=== PATIENT | male | born 1950 | race African-American/Black ===

== ENCOUNTER 2017-08-06 17:06 | Emergency (ER) | payer MEDICARE, OTHER ==
[~2017-08-06] VITALS: Ht 193 cm; Wt 117.9 kg
[2017-08-06 17:17] VITALS: BP 147/83
[2017-08-06] MEDS ORDERED: Tylenol #3 tab (300mg/30mg) ORAL ONE (17:45)
[2017-08-06] MEDS ORDERED: VITAMIN C500 M1 ORAL (17:57)
[2017-08-06] MEDS ORDERED: SPIRIVA18 MCG INH (17:57)
[2017-08-06] MEDS ORDERED: QUETIAPINE FUMA25 MG ORAL (17:57)
[2017-08-06] MEDS ORDERED: FERROUS SULFAT325 MG ORAL (17:57)
[2017-08-06] MEDS ORDERED: ALBUTEROL2.5 MG/3 M INH (17:57)
[2017-08-06] MEDS ORDERED: TAMSULOSIN HCL0.4 MG ORAL (17:57)
[2017-08-06] MEDS ORDERED: MILK OF MA400 MG/51 ORAL (17:57)
[2017-08-06] MEDS ORDERED: ASPIR 8181 MG ORAL (17:57)
[2017-08-06] MEDS ORDERED: MULTIVITAMINS1 EAC2 ORAL (17:57)
[2017-08-06] MEDS ORDERED: LEXAPRO10 MG ORAL (17:57)
[2017-08-06] MEDS ORDERED: METOPROLOL TART25 MG ORAL (17:57)
[2017-08-06] MEDS ORDERED: TYLENOL EXTRA500 MG ORAL (17:57)
[2017-08-06] MEDS ORDERED: ZINC SULFATE220 M1 ORAL (17:57)
[2017-08-06] MEDS ORDERED: MELATONIN 3 MG1 EAC1 PO (17:57)
--- NOTE | 2017-08-06 18:52 | Emergency Room Report ---
History of Present Illness General Chief Complaint: Pain Source: Patient, Medical Record Present Illness HPI 67-year-old male presents ED for evaluation. Patient is complaining of left wrist pain and swelling. Patient states he fell today at a [facility]. Denies hitting his head or LOC. Pain is throbbing, 8 out of 10, nonradiating. Denies any other injuries. No other aggravating or relieving factors. Denies any other associated symptoms Allergies: Coded Allergies: CHEESE (Verified Allergy, Unknown, 08/06/17) NIFEDIPINE (Verified Allergy, Unknown, 08/06/17) Patient History Past Medical History: DM, HTN, COPD, psych hx, other - BPH Past Surgical History: none Pertinent Family History: none Social History: Denies: smoking, alcohol use, drug use Immunizations: UTD Reviewed Nursing Documentation: PMH: Agreed; PSxH: Agreed Nursing Documentation-PMH Hx Hypertension: Yes Hx COPD: Yes Hx Diabetes: Yes Hx Gastrointestinal Problems: Yes - BPH History Of Psychiatric Problem: Yes - schizophrenia, major depressive disorder Review of Systems All Other Systems: negative except mentioned in HPI Physical Exam Vital Signs Date Time Temp Pulse Resp B/P (MAP) Pulse Ox O2 Delivery O2 Flow Rate FiO2 08/06/17 17:00 98.2 94 20 147/83 95 Room Air 98.2 Sp02 EP Interpretation: reviewed, normal General Appearance: no apparent distress, alert, GCS 15, non-toxic Head: normocephalic Eyes: bilateral eye normal inspection, bilateral eye PERRL ENT: normal ENT inspection Neck: normal inspection Respiratory: normal inspection Cardiovascular #1: normal inspection Gastrointestinal: normal inspection Rectal: deferred Genitourinary: no CVA tenderness Musculoskeletal: swelling - L wrist Neurologic: alert, oriented x3, responsive, motor strength/tone normal, sensory intact, speech normal Psychiatric: normal inspection Skin: normal inspection Lymphatic: normal inspection Procedures Splinting Splinting : Consent: Verbal Pre-Made Type: velcro Splint: wrist Pre-Proc Neuro Vasc Exam: normal Post-Proc Neuro Vasc Exam: normal Patient Tolerated: Well Complications: None Medical Decision Making Diagnostic Impression: Primary Impression: Wrist fracture, left Qualified Codes: S62.102A - Fracture of unspecified carpal bone, left wrist, initial encounter for closed fracture ER Course Hospital Course 67-year-old M presents to ED complaining of LUE pain s/p fall Differential diagnoses include: Fracture, dislocation, sprain, contusion Clinical course Patient placed on stretcher. After initial history and physical, I ordered pain medications and Xrays of L hand, wrist On one view of wrist shows fracture. However patient is refusing additional views. Patient does have psychiatric history. I am unable to coerce patient into receiving additional views. Discussed case with PMD Dr. Araiza. Patient placed in wrist splint. Patient safe for discharge back to [facility] facility Diagnosis - wrist fracture Stable and discharged to home with Rx Tylenol #3. apply ice, keep elevated. Followup with PMD. Return to ED if symptoms recur or worsen Other X-Ray Diagnostic Results Other X-Ray Diagnostic Results : X-Ray ordered: L wrist # of Views/Limited Vs Complete: 1 View Indication: Pain EP Interpretation: Yes Interpretation: no dislocation, other - fx. patient refused additional views Impression: Other - fx Electronically Signed by: Electronically signed by Santiago Pantoja MD Last Vital Signs Date Time Temp Pulse Resp B/P (MAP) Pulse Ox O2 Delivery O2 Flow Rate FiO2 08/06/17 17:51 98.2 08/06/17 17:17 94 20 147/83 95 Room Air Status: improved Disposition: XFER SNF Condition: Stable Referrals: Cher Araiza MD (PCP) SANTIAGO PANTOJA M.D. Aug 06, 2017 18:52
[2017-08-06] MEDS ORDERED: ACETAMINOPHEN-1 EAC1 ORAL (18:53)
[2017-08-06 20:05] VITALS: BP 143/67
[2017-08-06 20:23] VITALS: BP 143/67
--- NOTE | 2017-08-07 10:11 | Diagnostic Imaging Report ---
Indication: Left wrist pain Technique: Lateral left wrist Comparison: None Findings: Examination is limited with only a lateral view but there is an apparent fracture of the distal radius. Soft tissue swelling is noted. There is osteopenia. Impression: Examination limited by only a lateral view. Apparent fracture of the distal radius. Complete repeat examination recommended. Findings discussed with Dr. Ferro.
== END 2017-08-06 20:24 ==
LOC: EDBD 17:06 → EMR 17:41
DX: S62.102A Fracture of unspecified carpal bone, left wrist, initial encounter for closed fracture (principal); W19.XXXA Unspecified fall, initial encounter; Y92.129 Unspecified place in nursing home as the place of occurrence of the external cause; I10 Essential (primary) hypertension; J44.9 Chronic obstructive pulmonary disease, unspecified; E11.9 Type 2 diabetes mellitus without complications; N40.0 Benign prostatic hyperplasia without lower urinary tract symptoms; F20.9 Schizophrenia, unspecified; F32.9 Major depressive disorder, single episode, unspecified
CPT/HCPCS: 99283

== ENCOUNTER 2018-12-19 13:31 | Inpatient (IN) | payer MEDICARE, OTHER ==
[~2018-12-19] VITALS: Ht 182.9 cm; Wt 74.5 kg
--- NOTE | 2018-12-19 09:45 | NUR ---
NURSE NOTES: Venous duplex showed "acute thrombus in the superficial femoral and popliteal veins. Imaging also reveals large collateral vein notes anterior to the superficial femoral artery". Notified Dr. Araiza. ordered to call Dr. Mackey or Dr. Cueva. Noted and carried out. Addendum: 12/19/18 at 2304 by Rishi Echavarria RN Incorrect time stamp. Should be [phone].
[~2018-12-19 13:31] MED LIST: ACETAMINOPHEN-1 EAC1 ORAL; ALBUTEROL2.5 MG/3 M INH; ASPIR 8181 MG ORAL; FERROUS SULFAT325 MG ORAL; LEXAPRO10 MG ORAL; MELATONIN 3 MG1 EAC1 PO; METOPROLOL TART25 MG ORAL; MILK OF MA400 MG/51 ORAL; MULTIVITAMINS1 EAC2 ORAL; QUETIAPINE FUMA25 MG ORAL; SPIRIVA18 MCG INH; TAMSULOSIN HCL0.4 MG ORAL; TYLENOL EXTRA500 MG ORAL; VITAMIN C500 M1 ORAL; ZINC SULFATE220 M1 ORAL
[2018-12-19] MEDS ORDERED: HYDRALAZINE HCL50 MG ORAL (13:47)
[2018-12-19] MEDS ORDERED: CLONIDINE HCL0.1 MG PO (13:47)
[2018-12-19] MEDS ORDERED: FAMOTIDINE40 MG ORAL (13:47)
[2018-12-19] MEDS ORDERED: GABAPENTIN300 MG ORAL (13:47)
[2018-12-19] MEDS ORDERED: LEXAPRO10 MG ORAL (13:47)
--- NOTE | 2018-12-19 13:47 | NUR ---
ED Nurse Note: R 2nd toe amputation noted.
--- NOTE | 2018-12-19 13:47 | NUR ---
ED Nurse Note: Pt [facility] from [facility], per paramedics, due to "Failure to Thrive", sent in by Dr. Araiza. When asked questions, pt does not answer questions appropriately, confusion noted. Pt re-oriented by RN. BP 150/107 at arrival. Will cont to monitor.
[2018-12-19] MEDS ORDERED: NOVOLOG100 UNIT/4 SQ (13:51)
[2018-12-19] MEDS ORDERED: PRO-STAT LIQUID30 ML ORAL (13:51)
[2018-12-19] MEDS ORDERED: LOSARTAN POTASS50 MG ORAL (13:51)
--- NOTE | 2018-12-19 13:57 | NUR ---
ED Nurse Note: X-ray at bedside for imaging.
--- NOTE | 2018-12-19 14:04 | Emergency Room Report ---
History of Present Illness General Chief Complaint: Dyspnea/Respdistress Source: Patient, Medical Record Present Illness HPI Disclaimer: Please note that this report is being documented using [employer] technology. This can lead to erroneous entry secondary to incorrect interpretation by the dictating instrument. HPI: 68-year-old male with a history of hypertension, hyperlipidemia, diabetes, dementia, COPD, current smoker presents from his nursing facility for evaluation of shortness of breath, hypotension and decreased arousal this morning. According to transfer paperwork, the patient was found in a very deep sleep, hypotensive with blood pressures 84/40s and was difficult to awaken. long term also noted that there was a question of failure to thrive though the patient denies any other complaints at this time. He denies any chest pain , recent illness, shortness of breath, cough, leg swelling, abdominal pain, vomiting, diarrhea, rash, dysuria, flank pain or any other change in his health. He is a poor historian and does not appear to have significant insight into his medical conditions. He appears in no acute distress at this time with stable vital signs. PMH: Diabetes, hypertension, dementia, COPD, GERD, CAD PSH: Patient states multiple but does not recall specific surgeries Allergies: Allergies to trees and nifedipine noted in medical chart Social Hx: Current smoker, denies alcohol or drug use Allergies: Coded Allergies: CHEESE (Verified Allergy, Unknown, 08/06/17) NIFEDIPINE (Verified Allergy, Unknown, 08/06/17) Nursing Documentation-PMH Hx Hypertension: Yes Hx COPD: Yes Hx Diabetes: Yes Hx Gastrointestinal Problems: Yes - BPH Review of Systems All Other Systems: negative except mentioned in HPI Physical Exam Vital Signs Date Time Temp Pulse Resp B/P (MAP) Pulse Ox O2 Delivery O2 Flow Rate FiO2 12/19/18 13:34 98.1 82 18 90/50 (63) 98 Room Air General: Awake and alert, no acute distress HEENT: NC/AT. EOMI. PERRLA. Moist mucous membranes. Neck: Supple, trachea midline Chest Wall: No tenderness, no deformity Cardiovascular: RRR. S1 and S2 normal. No murmur appreciated Resp: Normal work of breathing. No cough, wheezing or crackles appreciated Abdomen: Abdomen is soft, nondistended. Nontender Skin: Intact. No abrasions, laceration or rash over the exposed skin MSK: Normal tone and bulk. Moving all extremities. No obvious deformity. No lower extremity edema. Neuro: Awake and alert. Mentating appropriately. Moving all extremities. Follows two-step commands. Medical Decision Making Diagnostic Impression: Primary Impression: Hypotension Additional Impression: Respiratory distress ER Course 64-year-old male with history of hypertension, hyperlipidemia, CAD, COPD presents for evaluation of shortness of breath, episode of hypotension and lethargy reported at his nursing facility earlier today. He presents for medical evaluation and possibly admission for failure to thrive as well. Currently, he is in no acute distress however will start a broad metabolic work- up including EKG, chest x-ray. He does not appear to require any emergent treatment at this time. Will monitor closely in the emergency department. Laboratory Tests Test 12/19/18 14:10 White Blood Count 5.7 K/UL (4.8-10.8) Red Blood Count 3.88 M/UL (4.70-6.10) L Hemoglobin 10.6 G/DL (14.2-18.0) L Hematocrit 34.6 % (42.0-52.0) L Mean Corpuscular Volume 89 FL (80-99) Mean Corpuscular Hemoglobin 27.3 PG (27.0-31.0) Mean Corpuscular Hemoglobin Concent 30.6 G/DL (32.0-36.0) L Red Cell Distribution Width 14.1 % (11.6-14.8) Platelet Count 256 K/UL (150-450) Mean Platelet Volume 7.9 FL (6.5-10.1) Neutrophils (%) (Auto) 64.3 % (45.0-75.0) Lymphocytes (%) (Auto) 25.2 % (20.0-45.0) Monocytes (%) (Auto) 7.6 % (1.0-10.0) Eosinophils (%) (Auto) 1.8 % (0.0-3.0) Basophils (%) (Auto) 1.0 % (0.0-2.0) Sodium Level 144 MMOL/L (136-145) Potassium Level 4.1 MMOL/L (3.5-5.1) Chloride Level 108 MMOL/L (98-107) H Carbon Dioxide Level 28 MMOL/L (21-32) Anion Gap 8 mmol/L (5-15) Blood Urea Nitrogen 15 mg/dL (7-18) Creatinine 1.2 MG/DL (0.55-1.30) Estimate Glomerular Filtration Rate > 60 mL/min (>60) Glucose Level 142 MG/DL (74-106) H Calcium Level 9.2 MG/DL (8.5-10.1) Magnesium Level 2.0 MG/DL (1.8-2.4) Total Bilirubin 0.3 MG/DL (0.2-1.0) Aspartate Amino Transferase (AST) 19 U/L (15-37) Alanine Aminotransferase (ALT) 10 U/L (12-78) L Alkaline Phosphatase 81 U/L (46-116) Total Creatine Kinase 123 U/L (26-308) Creatine Kinase MB 0.8 NG/ML (0.0-3.6) Creatine Kinase MB Relative Index 0.6 Troponin I 0.000 ng/mL (0.000-0.056) Pro-B-Type Natriuretic Peptide 322 pg/mL (0-125) H Total Protein 7.3 G/DL (6.4-8.2) Albumin 2.9 G/DL (3.4-5.0) L Globulin 4.4 g/dL Albumin/Globulin Ratio 0.7 (1.0-2.7) L EKG Diagnostic Results EKG Time: 14:05 Rate: normal Rhythm: NSR Other Impression First-degree AV block with NH interval 222 ms, left axis deviation, no acute ischemic changes Rhythm Strip Diag. Results Rhythm Strip Time: 14:05 EP Interpretation: yes Rate: 80s Rhythm: NSR Reevaluation Time: 16:00 Last Vital Signs Date Time Temp Pulse Resp B/P (MAP) Pulse Ox O2 Delivery O2 Flow Rate FiO2 12/19/18 13:34 98.1 82 18 90/50 (63) 98 Room Air Status: unchanged Reevaluation Impression Labs showed no significant white count, mild anemia with a hemoglobin of 10.6, normal renal function with electrolytes largely within normal limits. Troponin is negative. BN peptide only slightly elevated at 322. Chest x-ray shows no infiltrates. Given his episode of hypotension, the patient will be admitted to the hospital for further monitoring and work-up. He remains in stable condition. Will admit to telemetry Disposition: ADMITTED INPATIENT Condition: Serious Kareem Fields MD Dec 19, 2018 14:04
--- NOTE | 2018-12-19 14:07 | NUR ---
ED Nurse Note: Pt refused lab drawn at this time, stated " I do not need any help, I am ok" at this time.
[2018-12-19 14:19] VITALS: BP 150/107
--- NOTE | 2018-12-19 14:19 | NUR ---
ED Nurse Note: 20G IV initiated on L hand, blood drawn and sent to lab. Pt is cooperative at this time but cannot urinate at this time. Refused straight cath.
[2018-12-19 14:32] LABS: EOSINOPHILS % (AUTO) 1.8 % (0.0-3.0); HEMATOCRIT 34.6 % (42.0-52.0); HEMOGLOBIN 10.6 G/DL (14.2-18.0); LYMPHOCYTES % (AUTO) 25.2 % (20.0-45.0); MEAN CORPUSCULAR VOLUME 89 FL (80-99); MONOCYTES % (AUTO) 7.6 % (1.0-10.0); NEUTROPHILS % (AUTO) 64.3 % (45.0-75.0); PLATELET COUNT 256 K/UL (150-450); RED BLOOD COUNT 3.88 M/UL (4.70-6.10); RED CELL DISTRIBUTION WIDTH 14.1 % (11.6-14.8); WHITE BLOOD COUNT 5.7 K/UL (4.8-10.8)
[2018-12-19 14:46] LABS: ANION GAP 8 mmol/L (5-15); BLOOD UREA NITROGEN 15 mg/dL (7-18); CALCIUM 9.2 MG/DL (8.5-10.1); CARBON DIOXIDE 28 MMOL/L (21-32); CHLORIDE 108 MMOL/L (98-107); CREATININE 1.2 MG/DL (0.55-1.30); POTASSIUM 4.1 MMOL/L (3.5-5.1); SODIUM 144 MMOL/L (136-145)
[2018-12-19 15:00] LABS: ALANINE AMINOTRANSFERASE 10 U/L (12-78); ALBUMIN 2.9 G/DL (3.4-5.0); ALBUMIN/GLOBULIN RATIO 0.7 (1.0-2.7); ALKALINE PHOSPHATASE 81 U/L (46-116); ASPARTATE AMINO TRANSFERASE 19 U/L (15-37); BILIRUBIN,TOTAL 0.3 MG/DL (0.2-1.0); CKMB 0.8 NG/ML (0.0-3.6); CREATINE KINASE 123 U/L (26-308)
--- NOTE | 2018-12-19 15:02 | Diagnostic Imaging Report ---
Indication: Dyspnea Comparison: None A single view chest radiograph was obtained. Findings: Interstitial opacities demonstrated with slightly prominent vascularity centrally and cardiomegaly. The bones are osteopenic. IMPRESSION: Suspected mild CHF
[2018-12-19 16:20] VITALS: BP 170/111
--- NOTE | 2018-12-19 16:20 | NUR ---
ED Nurse Note: Pt refused MRSA, VRE, CRE swabs.
[2018-12-19] MEDS ORDERED: HydrALAZINE 50mg tab ORAL ONE (16:30)
--- NOTE | 2018-12-19 16:52 | NUR ---
ED Nurse Note: Report given to ALEXA Gonzalez at ext [phone]. Pt to be transfered to room 220-2 on [facility] per protocol.
[2018-12-19 17:30] VITALS: BP 150/83
--- NOTE | 2018-12-19 17:30 | NUR ---
NURSE NOTES: Received report from ALEXA Pink. Pt arrived to unit via hospital bed in stable condition on RA with no cardiopulmonary distress noted, AAOx2. Pt connected to progressive assembler and fitter, VS taken and recorded. Skin alterations noted, pictures uploaded and care plan initiated. Pt has a LH 20g IV. Pt uses urinal to void. Bed in lowest position, alamr on, side rails up x2, call light within reach. Will continue to monitor. Pt belongings at bedside.
--- NOTE | 2018-12-19 17:48 | NUR ---
NURSE NOTES: Pt is refusing to be swabbed for MRSA, CRE, and VRE. Informed patient about importance of swab but pt still refused.
[2018-12-19] MEDS ORDERED: SEROQUEL50 MG ORAL (18:04)
--- NOTE | 2018-12-19 19:33 | NUR ---
HAND-OFF: Report given to ALEXA Blackwell. Pt in stable condition.
--- NOTE | 2018-12-19 19:34 | NUR ---
NURSE NOTES: Received report from ALEXA Alegria. Pt is awake in bed. In no acute distress. IV line intact and patent. Bed in lowest position, call light within reach. Will continue plan of care.
[2018-12-19 20:00] VITALS: BP 161/98
[2018-12-19] MEDS: NovoLOG Insulin Flexpen SUBQ SCH (21:00)
[2018-12-19] MEDS: Tamsulosin 0.4mg cap ORAL SCH (21:35)
--- NOTE | 2018-12-19 21:45 | NUR ---
NURSE NOTES: Venous duplex showed "acute thrombus in the superficial femoral and popliteal veins. Imaging also reveals large collateral vein notes anterior to the superficial femoral artery". Notified Dr. Araiza. ordered to call Dr. Mackey or Dr. Cueva. Noted and carried out.
--- NOTE | 2018-12-19 21:46 | NUR ---
NURSE NOTES: Left Dr. Maravilla a message regarding pt's acute DVT on right leg. Awaiting for call back.
[2018-12-19] MEDS ORDERED: Albuterol/Ipratropium 3ml neb HHN PRN (22:45)
--- NOTE | 2018-12-19 22:45 | NUR ---
NURSE NOTES: Spoke to Dr. Cueva. Notified MD that pt's venous duplex showed positive DVT on right leg. New orders received read back and carried out. Will continue to monitor.
--- NOTE | 2018-12-19 22:51 | NUR ---
NURSE NOTES: Spoke to nuclear logging engineer over the phone. He said he can get here in about 2 hours.
[2018-12-19] MEDS ORDERED: Enoxaparin 120 mg inj SUBQ SCH (23:00)
[2018-12-19] MEDS: HydrALAZINE 25mg tab ORAL SCH (23:13)
[2018-12-20] VITALS (8 sets, daily range): BP systolic 115–172; BP diastolic 74–115
--- NOTE | 2018-12-20 00:05 | NUR ---
Regarding STAT V/Q Scan: Please note, the ground nuclear weapons assembly officer arrived within 1 hour of being called. It is the isotope that takes 2 hours to be delivered from the radiopharmacy.
--- NOTE | 2018-12-20 00:30 | NUR ---
NURSE NOTES: Noted pt trying to climb out of bed. Asked pt where he wants to go, pt says, "Don't worry about it, I'll go where I wanna go!" Told pt that he can fall and also that he has a blood clot on his right leg, and that he shouldn't try to get up OOB. Pt started getting belligerent and started yelling and using profanity. Pt kept trying to climb out of bed and is very combative. Pt is also noted with labored breathing, pt refuses vital signs. Notified Dr. Cueva. Received new orders. Noted and carried out.
--- NOTE | 2018-12-20 00:43 | NUR ---
Regarding STAT V/Q Scan: Pt is extremely aggravated, combative, unwilling to cooperate or follow commands. V/Q Scan not done.
--- NOTE | 2018-12-20 00:45 | NUR ---
NURSE NOTES: Notified Dr. Cueva regarding ABG results. Doctor was also made aware that the VQ scan and the head CT can not be done by since the pt is very agitated. Doctor said its ok to hold off the VQ scan til the morning and to do CT head when the pt calms down. also ordered Ativan IV PRN, read back and carried out.
[2018-12-20] MEDS ORDERED: LORazepam 0.5mg tab ORAL PRN (01:00)
[2018-12-20] MEDS: LORazepam Inj 2mg/ml 1ml IV PRN ×2 (01:13→09:48)
[2018-12-20] MEDS: HydrALAZINE 25mg tab ORAL SCH ×4 (06:17→22:00)
[2018-12-20 06:19] LABS: BASOPHILS % (AUTO) 0.9 % (0.0-2.0); EOSINOPHILS % (AUTO) 1.7 % (0.0-3.0); HEMATOCRIT 32.7 % (42.0-52.0); HEMOGLOBIN 10.3 G/DL (14.2-18.0); LYMPHOCYTES % (AUTO) 25.7 % (20.0-45.0); MEAN CORPUSCULAR VOLUME 88 FL (80-99); MONOCYTES % (AUTO) 7.7 % (1.0-10.0); PLATELET COUNT 256 K/UL (150-450); RED BLOOD COUNT 3.73 M/UL (4.70-6.10); RED CELL DISTRIBUTION WIDTH 14.9 % (11.6-14.8); WHITE BLOOD COUNT 6.6 K/UL (4.8-10.8)
[2018-12-20] MEDS: NovoLOG Insulin Flexpen SUBQ SCH ×4 (06:30→22:00)
[2018-12-20 06:47] LABS: ALANINE AMINOTRANSFERASE 11 U/L (12-78); ALBUMIN 2.7 G/DL (3.4-5.0); ALBUMIN/GLOBULIN RATIO 0.6 (1.0-2.7); ALKALINE PHOSPHATASE 75 U/L (46-116); ANION GAP 5 mmol/L (5-15); ASPARTATE AMINO TRANSFERASE 13 U/L (15-37); BILIRUBIN,TOTAL 0.3 MG/DL (0.2-1.0); BLOOD UREA NITROGEN 11 mg/dL (7-18); CALCIUM 9.2 MG/DL (8.5-10.1); CARBON DIOXIDE 29 MMOL/L (21-32); CHLORIDE 108 MMOL/L (98-107); CREATININE 1.2 MG/DL (0.55-1.30); POTASSIUM 3.4 MMOL/L (3.5-5.1); SODIUM 142 MMOL/L (136-145)
--- NOTE | 2018-12-20 07:10 | NUR ---
NURSE NOTES: Nurse report given by ALEXA Blackwell. Patient's awake, eating at side of the bed. AO x 4. No s/s of acute distress or SOB. Denies pain. Bed at lowest position, breaks engaged and call light within reach. Will continue to monitor. Addendum: 12/20/18 at 0807 by Kelly Sams RN wrong patient's report
--- NOTE | 2018-12-20 07:15 | NUR ---
NURSE NOTES: Nurse report given by ALEXA Blackwell. Patient's in bed, agitated, aggressive, AO x 1. Patient's on bilateral soft wrist restraint, on condom catheter, IV site is patent, asymptomatic. Bed at lowest position, breaks engaged, call light within reach, bed alarm is on. PRN Nasal cannula at bedside. R leg swollen, asymmetrical from the Left leg. Right foot 2nd toe amputation. Will continue to monitor closely.
--- NOTE | 2018-12-20 07:24 | NUR ---
NURSE NOTES: Contacts Wilda Garcia (Daughter) Sergio Telles (Sister)
--- NOTE | 2018-12-20 07:27 | NUR ---
HAND-OFF: Report given to ALEXA Galvez.
[2018-12-20] MEDS: Losartan 50mg tab ORAL SCH (08:26)
[2018-12-20] MEDS: Milk of Magnesia 30ml Ud ORAL SCH ×3 (08:26→09:00)
[2018-12-20] MEDS: Aspirin EC 81mg tab ORAL SCH (08:26)
[2018-12-20] MEDS ORDERED: Enoxaparin 40mg Inj SUBQ SCH (09:00)
--- NOTE | 2018-12-20 09:30 | NUR ---
NURSE NOTES: Patient's been very aggressive and agitated. Gave 0.5mg ativan IVP. CT scan is delayed d/t patient still very agitated and tried to get out of bed. Psych consult by Dr. Delacruz per Dr. Cueva's request, awaiting for response.
--- NOTE | 2018-12-20 09:43 | NUR ---
NURSE NOTES: Contacted Dr. Delacruz about Psych consult per Dr. Cueva's request. Awaiting for Dr. Delacruz's response. Patient's still combative, agitated and aggressive. Administered Ativan and no change after reassessment. VQ scan and Head CT scan are delayed d/t patient's agitation. Will update VQ scan and CT scan if patient is calm.
[2018-12-20] MEDS ORDERED: Enoxaparin Sodium 300mg/3ml vial SUBQ SCH (10:00)
--- NOTE | 2018-12-20 10:34 | NUR ---
Regarding STAT V/Q Scan: Re-assessed pt for 2nd attempt at V/Q Scan. Pt remains agitated and unable to cooperate. V/Q Scan still not done.
[2018-12-20] MEDS: Enoxaparin 30mg Inj SUBQ SCH (10:53)
[2018-12-20] MEDS: Enoxaparin 80mg Inj SUBQ SCH (10:54)
[2018-12-20] MEDS ORDERED: Enoxaparin 80mg Inj SUBQ SCH (11:00)
--- NOTE | 2018-12-20 11:08 | NUR ---
DISCHARGE AND SWALLOW EVALUATION SUMMARY: REFERRED FOR SWALLOW EVALUATION BY DR. ALEJANDRE, SEE FULL REPORT TO FOLLOW. DYSPHAGIA RISK FACTORS FOR THIS 68 Y.O.M.: ACUTE ISSUES HYPOTENSION, DYSPNEA, RESPIRATORY DISTRESS NOW ON ROOM AIR LUNGS MILD CHF H/O DEMENTIA, HYPOXIA, GERD, CAD, HTN, SCHIZOPHRENIA (ON SEROQUEL MEDS), MDD, ANXIETY, TOBACCO USE. PER POLST OK TO HAVE [facility] ARTIFICIAL NUTRITION INCLUDES TUBE FEEDINGS. AT SNF ON A CCHO JUAN JOSÉ REGULAR TEXTURE DIET AND THIN LIQUIDS CURRENTLY ON THE SAME DIET WITH 100% INTAKE. ALERT BUT RESTLESS, MAKES MOANING SOUNDS. ALMOST BIT ROAD BUILDER WHEN SHE LOOKED AT HIS TEETH (THEY ARE GROSSLY FUNCTIONAL (NEED BRUSHING). ABLE TO EXPRESS NEEDS. INITIAL IMPRESSIONS: GROSSLY FUNCTIONAL SWALLOW WITH THIN LIQUIDS VIA CUP SEQUENTIAL SIPS (3 OZ CANTON SWALLOW PROTOCOL), PUREED TSP, AND MASTICATED SOLID (1/2 CRACKER) W/O ORAL RESIDUE NOR OVERT S/S OF ASPIRATION. HAS SILENT ASP RISK BUT CXR CLEAR OF INFILTRATES. GOOD INTAKE SELF FEEDING RECOMMENDATIONS: CONTINUE WITH CURRENT DIET OF CCHO-MED AND JUAN JOSÉ REGULAR TEXTURE DIET WITH THIN LIQUIDS WITH GENERAL ASPIRATION AND REFLUX PRECAUTIONS AND SUPERVISION PRN (PER RN SELF-FEEDS W/O PROBLEMS). MOD BARIUM SWALLOW STUDY OP ONLY IF INDICATED TO FURTHER ASSESS SWALLOW, DETERMINE SILENT ASP RISK, AND ATTEMPT TRIAL TX (MAY REFUSE HE INITIALLY REFUSED PO TRIALS WITH ROAD BUILDER). WILL D/C FROM SKILLED ROAD BUILDER SERVICES FOR NOW EDUCATED/TRAINED STAFF IN POSTED ASP/REFLUX PRECAUTIONS LEFT MESSAGE WITH
--- NOTE | 2018-12-20 11:31 | NUR ---
NURSE NOTES: Dr. Delacruz ordered Ativan 2mg IVP Once. Order acknowledged and carried out.
[2018-12-20] MEDS ORDERED: LORazepam Inj 2mg/ml 1ml IV SCH ×2 (11:45)
--- NOTE | 2018-12-20 11:53 | NUR ---
RD ASSESSMENT & RECOMMENDATIONS SEE CARE ACTIVITY FOR COMPLETE ASSESSMENT DAILY ESTIMATED NEEDS: Needs based on Wound, pulmonary 95.7kg adj 25-30 kcals/kg 2194-0806 total kcals 1.25-1.5 g protein/kg 120-144 g total protein 25-30 mL/kg 6145-0283 total fluid mLs NUTRITION DIAGNOSIS: Increase pro needs r/t wound healing as evidenced by BL buttocks partial thickness wounds. CURRENT DIET: CCHO MED / JUAN JOSÉ PO DIET RECOMMENDATIONS: JUAN JOSÉ / CCHO MED diet (texture per CUSTOMER ENGINEER) + DOUBLE PROTEIN ADDITIONAL RECOMMENDATIONS: 1) PER SNF--> > HT: 6'4" and WT: 236 lbs 2) A1C for eval 3) WOUND CARE: Add ALESSIA BID + VIT C 250mg daily 4) Possible FTT, rec close monitoring of PO intake/ Kcal count 5) Add GLUCERNA 1 tetra jules daily
[2018-12-20] MEDS: Docusate 100mg cap ORAL SCH ×2 (13:00→17:44)
--- NOTE | 2018-12-20 13:04 | Consultation ---
Consult Note Consult Note I was asked to seaal for management of fluctuating BP Patient seen in ER for low BP and now BP is OOC ER: HPI: 68-year-old male with a history of hypertension, hyperlipidemia, diabetes, dementia, COPD, current smoker presents from his nursing facility for evaluation of shortness of breath, hypotension and decreased arousal this morning. According to transfer paperwork, the patient was found in a very deep sleep, hypotensive with blood pressures 84/40s and was difficult to awaken. [facility] also noted that there was a question of failure to thrive though the patient denies any other complaints at this time. He denies any chest pain , recent illness, shortness of breath, cough, leg swelling, abdominal pain, vomiting, diarrhea, rash, dysuria, flank pain or any other change in his health. He is a poor historian and does not appear to have significant insight into his medical conditions. He appears in no acute distress at this time with stable vital signs. PMH: Diabetes, hypertension, dementia, COPD, GERD, CAD Social Hx: Current smoker, denies alcohol or drug use Coded Allergies: CHEESE (Verified Allergy, Unknown, 08/06/17) NIFEDIPINE (Verified Allergy, Unknown, 08/06/17) Hx Hypertension: Yes Hx COPD: Yes Hx Diabetes: Yes Hx Gastrointestinal Problems: Yes - BPH examined lethargic non historian meds reviewed . Assessment/Plan Uncontrolled BP fluctuating HypoKalemia Diabetes, Acute metabolic encephalopathy dementia, COPD, GERD, CAD Plan: PO KCL Adjust BP meds UA Protonix BP and BS in check Per orders Wenceslao Morgan MD Dec 20, 2018 13:04
--- NOTE | 2018-12-20 13:52 | Pulmonology Progress Note ---
Assessment/Plan Assessment/Plan Pulmonary Consultation HPI Patient seen earlier. Patient is a 68-year-old man with a history of hypertension, CAD, hyperlipidemia, diabetes, dementia, COPD (current smoker), GERD. He presents from his nursing facility for evaluation of shortness of breath, hypotension and decreased arousal this morning. According to transfer paperwork, the patient was found in a very deep sleep, hypotensive with blood pressures 84/40s and was difficult to awaken. Noted to have a right leg DVT, V/Q scan pending. Patient noted to be in an agitated condition, denies any chest pain, recent illness, shortness of breath, cough, leg swelling, abdominal pain, vomiting, diarrhea, rash, dysuria, flank pain or any other change in his health. He is a poor historian and does not appear to have significant insight into his medical conditions. He appears in no acute distress at this time. PMH: Diabetes, hypertension, hypertension, hyperlipidemia, dementia, COPD, GERD , CAD PSH: Patient states multiple but does not recall specific surgeries Allergies: nifedipine, cheese Social Hx: Current smoker, denies alcohol or drug use All Other Systems: negative except mentioned in HPI Physical Exam Vital Signs Noted Date Time Temp Pulse Resp B/P (MAP) Pulse Ox O2 Delivery O2 Flow Rate FiO2 12/19/18 13:34 98.1 82 18 90/50 (63) 98 Room Air General: Awake and alert, no acute distress, agitated mental state HEENT: NC/AT. EOMI. PERRLA. Moist mucous membranes. Neck: Supple, trachea midline Chest Wall: No tenderness, no deformity Cardiovascular: RRR. S1 and S2 normal. No murmur appreciated Resp: Normal work of breathing. No cough, wheezing or crackles appreciated Abdomen: Abdomen is soft, nondistended. Nontender Skin: Intact. No abrasions, laceration or rash over the exposed skin MSK: Normal tone and bulk. Moving all extremities. No obvious deformity. No lower extremity edema. Neuro: Awake and alert. Agitated. Moving all extremities. Follows two-step commands. Impression: DVT Hypotension Need to r/o PE COPD Diabetes Hypertension Hyperlipidemia Dementia GERD CAD Plan - O2 PRN - Continue Lovenox, dose per Pharmacy - IVF PRN - VQ scan - CT Head - Psychiatry following - HHN - [employer]INEER meds - Psychiatry following - Monitor labs - PPX Laboratory Tests Test 12/19/18 14:10 White Blood Count 5.7 K/UL (4.8-10.8) Red Blood Count 3.88 M/UL (4.70-6.10) L Hemoglobin 10.6 G/DL (14.2-18.0) L Hematocrit 34.6 % (42.0-52.0) L Mean Corpuscular Volume 89 FL (80-99) Mean Corpuscular Hemoglobin 27.3 PG (27.0-31.0) Mean Corpuscular Hemoglobin Concent 30.6 G/DL (32.0-36.0) L Red Cell Distribution Width 14.1 % (11.6-14.8) Platelet Count 256 K/UL (150-450) Mean Platelet Volume 7.9 FL (6.5-10.1) Neutrophils (%) (Auto) 64.3 % (45.0-75.0) Lymphocytes (%) (Auto) 25.2 % (20.0-45.0) Monocytes (%) (Auto) 7.6 % (1.0-10.0) Eosinophils (%) (Auto) 1.8 % (0.0-3.0) Basophils (%) (Auto) 1.0 % (0.0-2.0) Sodium Level 144 MMOL/L (136-145) Potassium Level 4.1 MMOL/L (3.5-5.1) Chloride Level 108 MMOL/L (98-107) H Carbon Dioxide Level 28 MMOL/L (21-32) Anion Gap 8 mmol/L (5-15) Blood Urea Nitrogen 15 mg/dL (7-18) Creatinine 1.2 MG/DL (0.55-1.30) Estimate Glomerular Filtration Rate > 60 mL/min (>60) Glucose Level 142 MG/DL (74-106) H Calcium Level 9.2 MG/DL (8.5-10.1) Magnesium Level 2.0 MG/DL (1.8-2.4) Total Bilirubin 0.3 MG/DL (0.2-1.0) Aspartate Amino Transferase (AST) 19 U/L (15-37) Alanine Aminotransferase (ALT) 10 U/L (12-78) L Alkaline Phosphatase 81 U/L (46-116) Total Creatine Kinase 123 U/L (26-308) Creatine Kinase MB 0.8 NG/ML (0.0-3.6) Creatine Kinase MB Relative Index 0.6 Troponin I 0.000 ng/mL (0.000-0.056) Pro-B-Type Natriuretic Peptide 322 pg/mL (0-125) H Total Protein 7.3 G/DL (6.4-8.2) Albumin 2.9 G/DL (3.4-5.0) L Globulin 4.4 g/dL Albumin/Globulin Ratio 0.7 (1.0-2.7) L EKG Time: 14:05 Rate: normal Rhythm: NSR Other Impression First-degree AV block with DC interval 222 ms, left axis deviation, no acute ischemic changes CXR: no acute changes Subjective ROS Limited/Unobtainable: No Allergies: Coded Allergies: CHEESE (Verified Allergy, Unknown, 08/06/17) NIFEDIPINE (Verified Allergy, Unknown, 08/06/17) Objective Last 24 Hour Vital Signs Date Time Temp Pulse Resp B/P (MAP) Pulse Ox O2 Delivery O2 Flow Rate FiO2 12/20/18 12:00 99.1 98 20 172/114 (133) 99 12/20/18 11:54 172/114 12/20/18 09:00 Room Air 12/20/18 08:55 95 Room Air 21 12/20/18 08:26 159/115 12/20/18 08:00 97.1 109 20 159/115 (130) 100 12/20/18 06:17 144/78 12/20/18 04:00 103 12/20/18 04:00 98.0 103 20 126/78 (94) 99 12/20/18 00:50 95 Nasal Cannula 2.0 28 12/20/18 00:00 112 12/20/18 00:00 97.0 112 20 147/83 (104) 98 12/19/18 23:13 165/90 12/19/18 21:00 Room Air 12/19/18 20:00 97.0 89 18 161/98 (119) 97 12/19/18 20:00 89 12/19/18 17:30 91 12/19/18 17:30 Room Air 12/19/18 17:30 97.0 103 20 150/83 (105) 98 12/19/18 16:52 98.1 82 20 170/111 99 Room Air 12/19/18 16:30 170/111 12/19/18 16:20 98.1 82 20 170/111 99 Room Air 12/19/18 14:19 98.1 87 18 150/107 99 Room Air 12/19/18 14:04 82 18 Room Air Intake and Output 12/19/18 12/20/18 18:59 06:59 Intake Total 0 ml Balance 0 ml Intake Oral 0 ml # Voids 2 # Bowel Movements 2 Laboratory Tests 12/19/18 14:10: White Blood Count 5.7, Red Blood Count 3.88L, Hemoglobin 10.6L, Hematocrit 34.6L , Mean Corpuscular Volume 89, Mean Corpuscular Hemoglobin 27.3, Mean Corpuscular Hemoglobin Concent 30.6L, Red Cell Distribution Width 14.1, Platelet Count 256, Mean Platelet Volume 7.9, Neutrophils (%) (Auto) 64.3, Lymphocytes (%) (Auto) 25.2, Monocytes (%) (Auto) 7.6, Eosinophils (%) (Auto) 1.8, Basophils (%) (Auto) 1.0, Sodium Level 144, Potassium Level 4.1, Chloride Level 108H, Carbon Dioxide Level 28, Anion Gap 8, Blood Urea Nitrogen 15, Creatinine 1.2, Estimat Glomerular Filtration Rate > 60, Glucose Level 142H, Calcium Level 9.2, Magnesium Level 2.0, Total Bilirubin 0.3, Aspartate Amino Transf (AST/SGOT) 19, Alanine Aminotransferase (ALT/SGPT) 10L, Alkaline Phosphatase 81, Total Creatine Kinase 123, Creatine Kinase MB 0.8, Creatine Kinase MB Relative Index 0.6, Troponin I 0.000, Pro-B-Type Natriuretic Peptide 322H, Total Protein 7.3, Albumin 2.9L, Globulin 4.4, Albumin/Globulin Ratio 0.7L 12/20/18 00:28: Arterial Blood pH 7.418, Arterial Blood Partial Pressure CO2 41.3, Arterial Blood Partial Pressure O2 107.7H, Arterial Blood HCO3 26.1H, Arterial Blood Oxygen Saturation 97.7, Arterial Blood Base Excess 1.4, Nate Test Positive 12/20/18 06:00: White Blood Count 6.6, Red Blood Count 3.73L, Hemoglobin 10.3L, Hematocrit 32.7L , Mean Corpuscular Volume 88, Mean Corpuscular Hemoglobin 27.5, Mean Corpuscular Hemoglobin Concent 31.3L, Red Cell Distribution Width 14.9H, Platelet Count 256, Mean Platelet Volume 7.1, Neutrophils (%) (Auto) 64.0, Lymphocytes (%) (Auto) 25.7, Monocytes (%) (Auto) 7.7, Eosinophils (%) (Auto) 1.7, Basophils (%) (Auto) 0.9, Sodium Level 142, Potassium Level 3.4L, Chloride Level 108H, Carbon Dioxide Level 29, Anion Gap 5, Blood Urea Nitrogen 11, Creatinine 1.2, Estimat Glomerular Filtration Rate > 60, Glucose Level 98, Calcium Level 9.2, Total Bilirubin 0.3, Aspartate Amino Transf (AST/SGOT) 13L, Alanine Aminotransferase (ALT/SGPT) 11L, Alkaline Phosphatase 75, Total Protein 6.9, Albumin 2.7L, Globulin 4.2, Albumin/Globulin Ratio 0.6L Current Medications Medications (Trade) Dose Ordered Sig/Jamila Route PRN Reason Start Time Stop Time Status Last Admin Dose Admin Acetaminophen (Tylenol) 325 mg Q4H PRN RECTAL Mild Pain/Temp > 100.5 12/19/18 18:45 01/18/19 18:44 Acetaminophen (Tylenol) 650 mg Q4H PRN ORAL Mild Pain/Temp > 100.5 12/19/18 18:45 01/18/19 18:44 Albuterol/ Ipratropium (Albuterol/ Ipratropium) 3 ml Q4H PRN HHN Shortness of Breath 12/19/18 22:45 12/24/18 22:44 Aspirin (Ecotrin) 81 mg DAILY ORAL 12/20/18 09:00 01/19/19 08:59 12/20/18 08:26 Clonidine HCl (Catapres Tab) 0.1 mg Q4H PRN ORAL SBP>170 12/20/18 13:15 01/18/19 18:44 Dextrose (Dextrose 50%) 25 ml Q30M PRN IV Hypoglycemia 12/19/18 19:00 01/18/19 18:59 Dextrose (Dextrose 50%) 50 ml Q30M PRN IV Hypoglycemia 12/19/18 19:00 01/18/19 18:59 Docusate Sodium (Colace) 100 mg THREE TIMES A DAY ORAL 12/20/18 13:00 01/19/19 12:59 Enoxaparin Sodium (Lovenox) 30 mg DAILY SUBQ 12/20/18 11:00 01/19/19 10:59 12/20/18 10:53 Enoxaparin Sodium (Lovenox) 80 mg DAILY SUBQ 12/20/18 11:00 01/19/19 10:59 12/20/18 10:54 Escitalopram Oxalate (Lexapro) 10 mg DAILY ORAL 12/20/18 09:00 01/19/19 08:59 12/20/18 08:26 Gabapentin (Neurontin) 300 mg THREE TIMES A DAY ORAL 12/20/18 09:00 01/19/19 08:59 12/20/18 08:26 Hydralazine HCl (Apresoline) 75 mg EVERY 8 HOURS ORAL 12/20/18 14:00 01/19/19 00:00 Insulin Aspart (NovoLOG) BEFORE MEALS AND HS SUBQ 12/19/18 21:00 01/18/19 20:59 Lorazepam (Ativan 2mg/ml 1ml) 0.5 mg Q6H PRN IV For Anxiety 12/20/18 01:15 12/27/18 01:14 12/20/18 09:48 Losartan Potassium (Cozaar) 100 mg DAILY ORAL 12/20/18 09:00 01/19/19 08:59 12/20/18 08:26 Magnesium Hydroxide (Mom) 30 ml DAILY ORAL 12/20/18 09:00 01/19/19 08:59 Montelukast Sodium (Singulair) 10 mg QPM ORAL 12/20/18 16:30 01/19/19 16:29 Pantoprazole (Protonix) 40 mg EVERY 12 HOURS ORAL 12/20/18 21:00 01/19/19 20:59 Potassium Chloride (K-Dur) 20 meq TWICE A DAY ORAL 12/20/18 13:15 01/19/19 13:14 Tamsulosin HCl (Flomax) 0.4 mg BEDTIME ORAL 12/19/18 21:00 01/18/19 20:59 12/19/18 21:35 Tiotropium [place] (Spiriva Inhaler) 1 puff DAILY INH 12/20/18 09:00 01/19/19 08:59 Wayne Cueva MD Dec 20, 2018 13:52
--- NOTE | 2018-12-20 14:45 | NUR ---
NURSE NOTES: Pt presented on admission with multiple pressure injuries. Partial thickness pressure injury noted to L gluteal cleft, Full thickness pressure injuries R buttock. Patient's been examined by nurse team: wound nurse, charge nurse, primary nurse and facilities maintenance supervisor. Patient's identified to have stage 3 pressure injury on R buttock, and stage 2 pressure injury on L gluteal cleft. Notified Dr. Araiza and order physician consult with Dr. Can.
--- NOTE | 2018-12-20 14:48 | NUR ---
NURSE NOTES:WOUND CARE NOTES:Pt presented on admission with multiple pressure injuries. Partial thickness pressure injury noted to L gluteal cleft. Base of wound moist -viable. Edges flat and adherent to base of wound. Periwound has a Darker skin tone without induration.(L)1cm x (W)0.9cm. Cluster of Full thickness pressure injuries R buttocks.Wounds are 90% viable with 10% slough Periwound has darker skin tone without induration but tender when minimally palpated (L)5.5cm x (W)4.6cm. Small amt non-odorous serous exudate. Non-blanchable erythema both heels. Both heels are boggy but non-tender when palpated. Tx.Plan: Cleanse wounds R buttocks with Saline. Apply Triad Paste . Cover with Optifoam drsg every 3 days and prn. Apply Triad Paste to L buttocks. Cover with Optifoam drsg. Change every 3 days and prn. Apply Cavilon Skin Barrier to both heels. Cover each heel with Optifoam drsg. Change every 7 days and prn. APM/ANYA Mattress Overlay. Reposition at least every 2 hours or as tolerated. Off-load heels with pillow
--- NOTE | 2018-12-20 15:16 | Consultation ---
History of Present Illness General Chief Complaint: Dyspnea/Respdistress Present Illness Allergies: Coded Allergies: CHEESE (Verified Allergy, Unknown, 08/06/17) NIFEDIPINE (Verified Allergy, Unknown, 08/06/17) Medication History Scheduled Amino Acids/Protein Hydrolys (Pro-Stat Liquid), 30 ML ORAL TWICE A DAY, ( Reported) Ascorbic Acid* (Vitamin C*), 500 MG ORAL DAILY, (Reported) Aspirin* (Aspir 81*), 81 MG ORAL DAILY, (Reported) Escitalopram Oxalate* (Lexapro*), 10 MG ORAL DAILY, (Reported) Escitalopram Oxalate* (Lexapro*), 10 MG ORAL DAILY, (Reported) Famotidine (Famotidine), 40 MG ORAL DAILY, (Reported) Ferrous Sulfate* (Ferrous Sulfate*), 325 MG ORAL DAILY, (Reported) Gabapentin* (Gabapentin*), 300 MG ORAL THREE TIMES A DAY, (Reported) Hydralazine Hcl* (Hydralazine Hcl*), 75 MG ORAL EVERY 6 HOURS, (Reported) Insulin Aspart (Novolog), 100 UNIT SQ BEFORE MEALS AND HS, (Reported) Losartan Potassium* (Losartan Potassium*), 100 MG ORAL DAILY, (Reported) Magnesium Hydroxide* (Milk Of Magnesia*), 30 ML ORAL DAILY, (Reported) Melatonin/Pyridoxine HCl (B6) (Melatonin 3 mg Tablet), 1 EACH PO QHS, (Reported) Metoprolol Tartrate* (Metoprolol Tartrate*), 25 MG ORAL EVERY 12 HOURS, ( Reported) Multivitamins* (Multivitamins*), 1 TAB ORAL DAILY, (Reported) Quetiapine Fumarate (Seroquel), 75 MG ORAL BID, (Reported) Tamsulosin Hcl (Tamsulosin Hcl*), 0.4 MG ORAL BEDTIME, (Reported) Tiotropium Doyle* (Spiriva*), 1 PUFF INH DAILY, (Reported) Zinc Sulfate (Zinc Sulfate*), 220 MG ORAL DAILY, (Reported) Scheduled PRN Acetaminophen With Codeine (T#3) (Tylenol #3 Tab*), 1 TAB ORAL Q8H PRN for For Pain Acetaminophen* (Tylenol Extra Strength*), 325 MG ORAL Q6H PRN for Mild Pain/ Temp > 100.5, (Reported) Albuterol Sulfate* (Albuterol Sulfate Hhn*), 3 ML INH Q4H PRN for Shortness of Breath, (Reported) Miscellaneous Medications Clonidine Hcl (Clonidine Hcl), 0.1 MG PO, (Reported) Discontinued Medications Quetiapine Fumarate* (Seroquel*), 50 MG ORAL QHS, (Reported) Discontinued Reason: Therapy completed Patient History Healthcare decision maker Resuscitation status Full Code Advanced Directive on File No Physical Exam Last 24 Hour Vital Signs Date Time Temp Pulse Resp B/P (MAP) Pulse Ox O2 Delivery O2 Flow Rate FiO2 12/20/18 14:05 172/114 12/20/18 12:00 102 12/20/18 12:00 99.1 98 20 172/114 (133) 99 12/20/18 11:54 172/114 12/20/18 09:00 Room Air 12/20/18 08:55 95 Room Air 21 12/20/18 08:26 159/115 12/20/18 08:00 97.1 109 20 159/115 (130) 100 12/20/18 08:00 109 12/20/18 06:17 144/78 12/20/18 04:00 103 12/20/18 04:00 98.0 103 20 126/78 (94) 99 12/20/18 00:50 95 Nasal Cannula 2.0 28 12/20/18 00:00 112 12/20/18 00:00 97.0 112 20 147/83 (104) 98 12/19/18 23:13 165/90 12/19/18 21:00 Room Air 12/19/18 20:00 97.0 89 18 161/98 (119) 97 12/19/18 20:00 89 12/19/18 17:30 91 12/19/18 17:30 Room Air 12/19/18 17:30 97.0 103 20 150/83 (105) 98 12/19/18 16:52 98.1 82 20 170/111 99 Room Air 12/19/18 16:30 170/111 12/19/18 16:20 98.1 82 20 170/111 99 Room Air Intake and Output 12/19/18 12/20/18 18:59 06:59 Intake Total 0 ml Balance 0 ml Intake Oral 0 ml # Voids 2 # Bowel Movements 2 Laboratory Tests Test 12/20/18 00:28 12/20/18 06:00 Arterial Blood pH 7.418 (7.350-7.450) Arterial Blood Partial Pressure CO2 41.3 mmHg (35.0-45.0) Arterial Blood Partial Pressure O2 107.7 mmHg (75.0-100.0) H Arterial Blood HCO3 26.1 mmol/L (22.0-26.0) H Arterial Blood Oxygen Saturation 97.7 % (95-100) Arterial Blood Base Excess 1.4 (-2-2) Nate Test Positive White Blood Count 6.6 K/UL (4.8-10.8) Red Blood Count 3.73 M/UL (4.70-6.10) L Hemoglobin 10.3 G/DL (14.2-18.0) L Hematocrit 32.7 % (42.0-52.0) L Mean Corpuscular Volume 88 FL (80-99) Mean Corpuscular Hemoglobin 27.5 PG (27.0-31.0) Mean Corpuscular Hemoglobin Concent 31.3 G/DL (32.0-36.0) L Red Cell Distribution Width 14.9 % (11.6-14.8) H Platelet Count 256 K/UL (150-450) Mean Platelet Volume 7.1 FL (6.5-10.1) Neutrophils (%) (Auto) 64.0 % (45.0-75.0) Lymphocytes (%) (Auto) 25.7 % (20.0-45.0) Monocytes (%) (Auto) 7.7 % (1.0-10.0) Eosinophils (%) (Auto) 1.7 % (0.0-3.0) Basophils (%) (Auto) 0.9 % (0.0-2.0) Sodium Level 142 MMOL/L (136-145) Potassium Level 3.4 MMOL/L (3.5-5.1) L Chloride Level 108 MMOL/L (98-107) H Carbon Dioxide Level 29 MMOL/L (21-32) Anion Gap 5 mmol/L (5-15) Blood Urea Nitrogen 11 mg/dL (7-18) Creatinine 1.2 MG/DL (0.55-1.30) Estimat Glomerular Filtration Rate > 60 mL/min (>60) Glucose Level 98 MG/DL (74-106) Calcium Level 9.2 MG/DL (8.5-10.1) Total Bilirubin 0.3 MG/DL (0.2-1.0) Aspartate Amino Transf (AST/SGOT) 13 U/L (15-37) L Alanine Aminotransferase (ALT/SGPT) 11 U/L (12-78) L Alkaline Phosphatase 75 U/L (46-116) Total Protein 6.9 G/DL (6.4-8.2) Albumin 2.7 G/DL (3.4-5.0) L Globulin 4.2 g/dL Albumin/Globulin Ratio 0.6 (1.0-2.7) L Height (Feet): 6 Height (Inches): 0.00 Weight (Pounds): 165 Medications Current Medications Medications (Trade) Dose Ordered Sig/Jamila Route PRN Reason Start Time Stop Time Status Last Admin Dose Admin Acetaminophen (Tylenol) 325 mg Q4H PRN RECTAL Mild Pain/Temp > 100.5 12/19/18 18:45 01/18/19 18:44 Acetaminophen (Tylenol) 650 mg Q4H PRN ORAL Mild Pain/Temp > 100.5 12/19/18 18:45 01/18/19 18:44 Albuterol/ Ipratropium (Albuterol/ Ipratropium) 3 ml Q4H PRN HHN Shortness of Breath 12/19/18 22:45 12/24/18 22:44 Aspirin (Ecotrin) 81 mg DAILY ORAL 12/20/18 09:00 01/19/19 08:59 12/20/18 08:26 Clonidine HCl (Catapres Tab) 0.1 mg Q4H PRN ORAL SBP>170 12/20/18 13:15 01/18/19 18:44 Dextrose (Dextrose 50%) 25 ml Q30M PRN IV Hypoglycemia 12/19/18 19:00 01/18/19 18:59 Dextrose (Dextrose 50%) 50 ml Q30M PRN IV Hypoglycemia 12/19/18 19:00 01/18/19 18:59 Docusate Sodium (Colace) 100 mg THREE TIMES A DAY ORAL 12/20/18 13:00 01/19/19 12:59 Enoxaparin Sodium (Lovenox) 30 mg DAILY SUBQ 12/20/18 11:00 01/19/19 10:59 12/20/18 10:53 Enoxaparin Sodium (Lovenox) 80 mg DAILY SUBQ 12/20/18 11:00 01/19/19 10:59 12/20/18 10:54 Escitalopram Oxalate (Lexapro) 10 mg DAILY ORAL 12/20/18 09:00 01/19/19 08:59 12/20/18 08:26 Gabapentin (Neurontin) 300 mg THREE TIMES A DAY ORAL 12/20/18 09:00 01/19/19 08:59 12/20/18 14:06 Hydralazine HCl (Apresoline) 75 mg EVERY 8 HOURS ORAL 12/20/18 14:00 01/19/19 00:00 12/20/18 14:05 Insulin Aspart (NovoLOG) BEFORE MEALS AND HS SUBQ 12/19/18 21:00 01/18/19 20:59 Lorazepam (Ativan 2mg/ml 1ml) 0.5 mg Q6H PRN IV For Anxiety 12/20/18 01:15 12/27/18 01:14 12/20/18 09:48 Lorazepam (Ativan) 2 mg Q4HR ORAL 12/20/18 17:00 12/27/18 16:59 Losartan Potassium (Cozaar) 100 mg DAILY ORAL 12/20/18 09:00 01/19/19 08:59 12/20/18 08:26 Magnesium Hydroxide (Mom) 30 ml DAILY ORAL 12/20/18 09:00 01/19/19 08:59 Montelukast Sodium (Singulair) 10 mg QPM ORAL 12/20/18 16:30 01/19/19 16:29 Olanzapine (ZyPREXA) 5 mg TID ORAL 12/20/18 18:00 01/19/19 17:59 Pantoprazole (Protonix) 40 mg EVERY 12 HOURS ORAL 12/20/18 21:00 01/19/19 20:59 Potassium Chloride (K-Dur) 20 meq TWICE A DAY ORAL 12/20/18 13:15 01/19/19 13:14 12/20/18 14:06 Tamsulosin HCl (Flomax) 0.4 mg BEDTIME ORAL 12/19/18 21:00 01/18/19 20:59 12/19/18 21:35 Tiotropium Doyle (Spiriva Inhaler) 1 puff DAILY INH 12/20/18 09:00 01/19/19 08:59 Assessment/Plan Assessment/Plan: Hematology Consultation REQ : May Araiza RFC: Anemia eval, FTT DOS: 12/20/18 HPI 68-year-old male with a history of hypertension, hyperlipidemia, diabetes, dementia, COPD, current smoker presents from his nursing facility for evaluation of shortness of breath, hypotension and decreased arousal this morning. According to transfer paperwork, the patient was found in a very deep sleep, hypotensive with blood pressures 84/40s and was difficult to awaken. halfway also noted that there was a question of failure to thrive though the patient denies any other complaints at this time. He denies any chest pain , recent illness, shortness of breath, cough, leg swelling, abdominal pain, vomiting, diarrhea, rash, dysuria, flank pain or any other change in his health. He is a poor historian and does not appear to have significant insight into his medical conditions. He appears in no acute distress at this time with stable vital signs. Seen and examined, no events noted, had difficulty with responding and most of the hx obtained from the medical chart. PMH: Diabetes, hypertension, dementia, COPD, GERD, CAD PSH: Patient states multiple but does not recall specific surgeries Allergies: Allergies to trees and nifedipine noted in medical chart Social Hx: Current smoker, denies alcohol or drug use Allergies: CHEESE (Verified Allergy, Unknown, 08/06/17) NIFEDIPINE (Verified Allergy, Unknown, 08/06/17) Nursing Documentation-PMH Hx Hypertension: Yes Hx COPD: Yes Hx Diabetes: Yes Hx Gastrointestinal Problems: Yes - BPH Review of Systems All Other Systems: negative except mentioned in HPI PE: Vitals: reviewed General Appearance: NAD HEENT: normocephalic, atraumatic Neck: non-tender, normal alignment Respiratory/Chest: nromal breath sounds bilaterally Cardiovascular/Chest: normal peripheral pulses, normal rate Abdomen: normal bowel sounds, soft, nontender Extremities: normal range of motio Neuro: Follows two-step commands. Labs: reviewed Imaging: noted Assessment and Recs: # Anemia of chronic disease (or of iron deficiency) due to underlying chronic medical issues, multifactorial --> Anemia workup has been ordered, rule out gi bleed --> No evidence of hemolysis is noted, peripheral smear has been reviewed. --> Hgb goal >7. Transfuse prn. --> Epogen or iron at this time is not particularly indicated --> Medications have been reviewed --> low threshold for gi evaluation in case has occult + # Failure to thrive (FTT) - decreased bmi and low protein --> have ordered for cea level --> will also obtain q3d caloric counts --> may consider mirtazapine as appetite stimulant --> GI consult on a prn basis, as needed for endosc # Hypotension --> ivf as per renal, now better # Respiratory distress may be due to mild chf/vascular congestion --> diuresis as needed The timing of this note does not necessarily reflect the time of the patient was seen. GREATLY APPRECIATE CONSULTATION. Collin Mackey MD Dec 20, 2018 15:16
--- NOTE | 2018-12-20 16:00 | NUR ---
KILN MAINTENANCELIVING SPECIALIST 68 YO FROM [facility] TO ER CC RESP DISTRESS,LOW B/P SI: HYPOTENSION T. 98.0 HR 82 RR 18 B/P 90/50 BNP 322 CH 108 CXR= SUSPECTED MILD CHF IS: ADMITTED TO TELE@ [id number] TELE STATUS DCP RETURN TO [facility]
--- NOTE | 2018-12-20 16:30 | NUR ---
NURSE NOTES: spoke with Dr sheth and he ordered sitter at bedside, and dc the restraint, for pt safety, house father notified.
[2018-12-20] MEDS: LORazepam 1mg tab ORAL SCH ×2 (16:38→21:55)
[2018-12-20] MEDS: Montelukast 10mg tablet ORAL SCH (16:38)
--- NOTE | 2018-12-20 18:37 | Consultation ---
History of Present Illness General Date patient seen: Dec 20, 2018 Reason for Hospitalization: Dyspnea/Respdistress Present Illness HPI This is a 68-year-old male who presented to [facility] with shortness of breath, hypotension, abnormal labs. Patient admitted for care management and work-up. Upon admission identified to have multiple wounds requiring care and management. Surgery called to evaluate and assist with patient's care. Patient seen, patient evaluated, chart reviewed. Patient is a fall risk and continues to try to get out of bed. He is not compliant with care and states he is well and has no issues. Patient is a poor historian and unable to provide any prior history. Patient is not been eating well recently given his medical/psychological status. He was identified to have a low albumin and beginnings of failure to thrive given this. Allergies: Coded Allergies: CHEESE (Verified Allergy, Unknown, 08/06/17) NIFEDIPINE (Verified Allergy, Unknown, 08/06/17) Medication History Scheduled Amino Acids/Protein Hydrolys (Pro-Stat Liquid), 30 ML ORAL TWICE A DAY, ( Reported) Ascorbic Acid* (Vitamin C*), 500 MG ORAL DAILY, (Reported) Aspirin* (Aspir 81*), 81 MG ORAL DAILY, (Reported) Escitalopram Oxalate* (Lexapro*), 10 MG ORAL DAILY, (Reported) Escitalopram Oxalate* (Lexapro*), 10 MG ORAL DAILY, (Reported) Famotidine (Famotidine), 40 MG ORAL DAILY, (Reported) Ferrous Sulfate* (Ferrous Sulfate*), 325 MG ORAL DAILY, (Reported) Gabapentin* (Gabapentin*), 300 MG ORAL THREE TIMES A DAY, (Reported) Hydralazine Hcl* (Hydralazine Hcl*), 75 MG ORAL EVERY 6 HOURS, (Reported) Insulin Aspart (Novolog), 100 UNIT SQ BEFORE MEALS AND HS, (Reported) Losartan Potassium* (Losartan Potassium*), 100 MG ORAL DAILY, (Reported) Magnesium Hydroxide* (Milk Of Magnesia*), 30 ML ORAL DAILY, (Reported) Melatonin/Pyridoxine HCl (B6) (Melatonin 3 mg Tablet), 1 EACH PO QHS, (Reported) Metoprolol Tartrate* (Metoprolol Tartrate*), 25 MG ORAL EVERY 12 HOURS, ( Reported) Multivitamins* (Multivitamins*), 1 TAB ORAL DAILY, (Reported) Quetiapine Fumarate (Seroquel), 75 MG ORAL BID, (Reported) Tamsulosin Hcl (Tamsulosin Hcl*), 0.4 MG ORAL BEDTIME, (Reported) Tiotropium [place]* (Spiriva*), 1 PUFF INH DAILY, (Reported) Zinc Sulfate (Zinc Sulfate*), 220 MG ORAL DAILY, (Reported) Scheduled PRN Acetaminophen With Codeine (T#3) (Tylenol #3 Tab*), 1 TAB ORAL Q8H PRN for For Pain Acetaminophen* (Tylenol Extra Strength*), 325 MG ORAL Q6H PRN for Mild Pain/ Temp > 100.5, (Reported) Albuterol Sulfate* (Albuterol Sulfate Hhn*), 3 ML INH Q4H PRN for Shortness of Breath, (Reported) Miscellaneous Medications Clonidine Hcl (Clonidine Hcl), 0.1 MG PO, (Reported) Discontinued Medications Quetiapine Fumarate* (Seroquel*), 50 MG ORAL QHS, (Reported) Discontinued Reason: Therapy completed Patient History Limited by: medical condition History Provided By: Medical Record, PMD Healthcare decision maker Resuscitation status Full Code Advanced Directive on File No Past Medical/Surgical History Past Medical/Surgical History: (1) Decubitus skin ulcer (2) Respiratory distress (3) Hypotension Review of Systems Review of Symptoms General ROS: no weight loss or fever Psychological ROS: no depression or mood changes, no memory loss Ophthalmic ROS: no visual changes or eye irritation ENT ROS: no nasal congestion, hearing loss, dizziness Allergy and Immunology ROS: no allergic symptoms or urticaria Hematological and Lymphatic ROS: no swollen glands, unusual bleeding or bruising Endocrine ROS: no polyuria, polydipsia, weight changes, temperature intolerance Respiratory ROS: no cough, shortness of breath, or wheezing Cardiovascular ROS: no chest pain or dyspnea on exertion Gastrointestinal ROS: denies abdominal pain, no bright red blood in stool. Musculoskeletal ROS: no myalgias or arthralgias Neurological ROS: no TIA or stroke symptoms Dermatological ROS: no new or changing skin lesions, rashes or pruritis Physical Exam Physical Exam General appearance: alert, cooperative, no distress, appears stated age Head: Normocephalic, without obvious abnormality, atraumatic Eyes: conjunctivae/corneas clear. PERRL, EOM's intact. Fundi benign Throat: Lips, mucosa, and tongue normal. Teeth and gums normal Neck: supple, symmetrical, trachea midline, no adenopathy, thyroid: not enlarged, symmetric, no tenderness/mass/nodules, no carotid bruit and no JVD Lungs: clear to auscultation bilaterally Heart: regular rate and rhythm, S1, S2 normal, no murmur, click, rub or gallop Abdomen: soft, non-tender. Bowel sounds normal. No masses, no organomegaly Extremities: extremities normal, atraumatic, no cyanosis or edema Pulses: 2+ and symmetric Skin: Skin color, texture, turgor normal. No rashes or lesions Neurologic: Grossly normal Last 24 Hour Vital Signs Date Time Temp Pulse Resp B/P (MAP) Pulse Ox O2 Delivery O2 Flow Rate FiO2 12/20/18 16:00 105 12/20/18 16:00 99.1 94 20 149/91 (110) 97 12/20/18 14:05 172/114 12/20/18 12:00 102 12/20/18 12:00 99.1 98 20 172/114 (133) 99 12/20/18 11:54 172/114 12/20/18 09:00 Room Air 12/20/18 08:55 95 Room Air 21 12/20/18 08:26 159/115 12/20/18 08:00 97.1 109 20 159/115 (130) 100 12/20/18 08:00 109 12/20/18 06:17 144/78 12/20/18 04:00 103 12/20/18 04:00 98.0 103 20 126/78 (94) 99 12/20/18 00:50 95 Nasal Cannula 2.0 28 12/20/18 00:00 112 12/20/18 00:00 97.0 112 20 147/83 (104) 98 12/19/18 23:13 165/90 12/19/18 21:00 Room Air 12/19/18 20:00 97.0 89 18 161/98 (119) 97 12/19/18 20:00 89 Intake and Output 12/19/18 12/20/18 18:59 06:59 Intake Total 0 ml Balance 0 ml Intake Oral 0 ml # Voids 2 # Bowel Movements 2 Laboratory Tests Test 12/20/18 00:28 12/20/18 06:00 Arterial Blood pH 7.418 (7.350-7.450) Arterial Blood Partial Pressure CO2 41.3 mmHg (35.0-45.0) Arterial Blood Partial Pressure O2 107.7 mmHg (75.0-100.0) H Arterial Blood HCO3 26.1 mmol/L (22.0-26.0) H Arterial Blood Oxygen Saturation 97.7 % (95-100) Arterial Blood Base Excess 1.4 (-2-2) Nate Test Positive White Blood Count 6.6 K/UL (4.8-10.8) Red Blood Count 3.73 M/UL (4.70-6.10) L Hemoglobin 10.3 G/DL (14.2-18.0) L Hematocrit 32.7 % (42.0-52.0) L Mean Corpuscular Volume 88 FL (80-99) Mean Corpuscular Hemoglobin 27.5 PG (27.0-31.0) Mean Corpuscular Hemoglobin Concent 31.3 G/DL (32.0-36.0) L Red Cell Distribution Width 14.9 % (11.6-14.8) H Platelet Count 256 K/UL (150-450) Mean Platelet Volume 7.1 FL (6.5-10.1) Neutrophils (%) (Auto) 64.0 % (45.0-75.0) Lymphocytes (%) (Auto) 25.7 % (20.0-45.0) Monocytes (%) (Auto) 7.7 % (1.0-10.0) Eosinophils (%) (Auto) 1.7 % (0.0-3.0) Basophils (%) (Auto) 0.9 % (0.0-2.0) Sodium Level 142 MMOL/L (136-145) Potassium Level 3.4 MMOL/L (3.5-5.1) L Chloride Level 108 MMOL/L (98-107) H Carbon Dioxide Level 29 MMOL/L (21-32) Anion Gap 5 mmol/L (5-15) Blood Urea Nitrogen 11 mg/dL (7-18) Creatinine 1.2 MG/DL (0.55-1.30) Estimat Glomerular Filtration Rate > 60 mL/min (>60) Glucose Level 98 MG/DL (74-106) Calcium Level 9.2 MG/DL (8.5-10.1) Total Bilirubin 0.3 MG/DL (0.2-1.0) Aspartate Amino Transf (AST/SGOT) 13 U/L (15-37) L Alanine Aminotransferase (ALT/SGPT) 11 U/L (12-78) L Alkaline Phosphatase 75 U/L (46-116) Total Protein 6.9 G/DL (6.4-8.2) Albumin 2.7 G/DL (3.4-5.0) L Globulin 4.2 g/dL Albumin/Globulin Ratio 0.6 (1.0-2.7) L Height (Feet): 6 Height (Inches): 0.00 Weight (Pounds): 165 Medications Current Medications Medications (Trade) Dose Ordered Sig/Jamila Route PRN Reason Start Time Stop Time Status Last Admin Dose Admin Acetaminophen (Tylenol) 325 mg Q4H PRN RECTAL Mild Pain/Temp > 100.5 12/19/18 18:45 01/18/19 18:44 Acetaminophen (Tylenol) 650 mg Q4H PRN ORAL Mild Pain/Temp > 100.5 12/19/18 18:45 01/18/19 18:44 Albuterol/ Ipratropium (Albuterol/ Ipratropium) 3 ml Q4H PRN HHN Shortness of Breath 12/19/18 22:45 12/24/18 22:44 Aspirin (Ecotrin) 81 mg DAILY ORAL 12/20/18 09:00 01/19/19 08:59 12/20/18 08:26 Clonidine HCl (Catapres Tab) 0.1 mg Q4H PRN ORAL SBP>170 12/20/18 13:15 01/18/19 18:44 Dextrose (Dextrose 50%) 25 ml Q30M PRN IV Hypoglycemia 12/19/18 19:00 01/18/19 18:59 Dextrose (Dextrose 50%) 50 ml Q30M PRN IV Hypoglycemia 12/19/18 19:00 01/18/19 18:59 Docusate Sodium (Colace) 100 mg THREE TIMES A DAY ORAL 12/20/18 13:00 01/19/19 12:59 Enoxaparin Sodium (Lovenox) 30 mg DAILY SUBQ 12/20/18 11:00 01/19/19 10:59 12/20/18 10:53 Enoxaparin Sodium (Lovenox) 80 mg DAILY SUBQ 12/20/18 11:00 01/19/19 10:59 12/20/18 10:54 Escitalopram Oxalate (Lexapro) 10 mg DAILY ORAL 12/20/18 09:00 01/19/19 08:59 12/20/18 08:26 Gabapentin (Neurontin) 300 mg THREE TIMES A DAY ORAL 12/20/18 09:00 01/19/19 08:59 12/20/18 17:44 Hydralazine HCl (Apresoline) 75 mg EVERY 8 HOURS ORAL 12/20/18 14:00 01/19/19 00:00 12/20/18 14:05 Insulin Aspart (NovoLOG) BEFORE MEALS AND HS SUBQ 12/19/18 21:00 01/18/19 20:59 12/20/18 16:51 Lorazepam (Ativan 2mg/ml 1ml) 0.5 mg Q6H PRN IV For Anxiety 12/20/18 01:15 12/27/18 01:14 12/20/18 09:48 Lorazepam (Ativan) 2 mg Q4HR ORAL 12/20/18 17:00 12/27/18 16:59 12/20/18 16:38 Losartan Potassium (Cozaar) 100 mg DAILY ORAL 12/20/18 09:00 01/19/19 08:59 12/20/18 08:26 Magnesium Hydroxide (Mom) 30 ml DAILY ORAL 12/20/18 09:00 01/19/19 08:59 Montelukast Sodium (Singulair) 10 mg QPM ORAL 12/20/18 16:30 01/19/19 16:29 12/20/18 16:38 Olanzapine (ZyPREXA) 5 mg TID ORAL 12/20/18 18:00 01/19/19 17:59 12/20/18 17:43 Pantoprazole (Protonix) 40 mg EVERY 12 HOURS ORAL 12/20/18 21:00 01/19/19 20:59 Potassium Chloride (K-Dur) 20 meq TWICE A DAY ORAL 12/20/18 13:15 01/19/19 13:14 12/20/18 17:43 Tamsulosin HCl (Flomax) 0.4 mg BEDTIME ORAL 12/19/18 21:00 01/18/19 20:59 12/19/18 21:35 Tiotropium [place] (Spiriva Inhaler) 1 puff DAILY INH 12/20/18 09:00 01/19/19 08:59 Assessment/Plan Problem List: (1) Respiratory distress ICD Codes: R06.03 - Acute respiratory distress SNOMED: 160318157 (2) Decubitus skin ulcer Assessment & Plan: Pt presented on admission with multiple pressure injuries. Partial thickness pressure injury noted to L gluteal cleft. Base of wound moist -viable. Edges flat and adherent to base of wound. Periwound has a Darker skin tone without induration.(L)1cm x (W)0.9cm. Cluster of Full thickness pressure injuries R buttocks.Wounds are 90% viable with 10% slough Periwound has darker skin tone without induration but tender when minimally palpated (L)5.5cm x (W)4.6cm. Small amt non-odorous serous exudate. Non-blanchable erythema both heels. Both heels are boggy but non-tender when palpated. Tx.Plan: Cleanse wounds R buttocks with Saline. Apply Triad Paste . Cover with Optifoam drsg every 3 days and prn. Apply Triad Paste to L buttocks. Cover with Optifoam drsg. Change every 3 days and prn. Apply Cavilon Skin Barrier to both heels. Cover each heel with Optifoam drsg. Change every 7 days and prn. APM/ANYA Mattress Overlay. Reposition at least every 2 hours or as tolerated. Off-load heels with pillow Patient able to move but unfortunately not fully compliant with care plan. Will try to reorient patient frequently to ensure he is moving and not laying on bony prominences. Furthermore will try to improve nutritional status to help with wound healing. ICD Codes: L89.90 - Pressure ulcer of unspecified site, unspecified stage SNOMED: 972874611 (3) Hypotension ICD Codes: I95.9 - Hypotension, unspecified SNOMED: 07089255 (4) Failure to thrive SNOMED: 16555211 (5) Hypoalbuminemia due to protein-calorie malnutrition Assessment & Plan: DAILY ESTIMATED NEEDS: Needs based on Wound, pulmonary 95.7kg adj 25-30 kcals/kg 8764-8971 total kcals 1.25-1.5 g protein/kg 120-144 g total protein 25-30 mL/kg 4153-2260 total fluid mLs NUTRITION DIAGNOSIS: Increase pro needs r/t wound healing as evidenced by BL buttocks partial thickness wounds. CURRENT DIET: CCHO MED / JUAN JOSÉ PO DIET RECOMMENDATIONS: JUAN JOSÉ / CCHO MED diet (texture per [employer]) + DOUBLE PROTEIN ADDITIONAL RECOMMENDATIONS: 1) PER SNF--> > HT: 6'4" and WT: 236 lbs 2) A1C for eval 3) WOUND CARE: Add ALESSIA BID + VIT C 250mg daily 4) Possible FTT, rec close monitoring of PO intake/ Kcal count 5) Add GLUCERNA 1 tetra jules daily ICD Codes: E46 - Unspecified protein-calorie malnutrition SNOMED: 73191776102703 Zachariah Can Dec 20, 2018 18:37
--- NOTE | 2018-12-20 19:00 | NUR ---
NURSE NOTES:Patient received from ALICE 1:1 Sitter Patient on bed. A/A/OX3 with episode of confusion . Patient denies any pain .Patient on O2 2l via N/ C in place and HOB elevated No sob/ No n/v noted .Left hand g#20 H/L wrapped with kerlix patent and intact. Right buttocks and left gluteal .cleft dressing C/D/I Right leg swollen Asymmetrical from the left leg. . 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 .Patient turned and repositioned for comfort . safety / Fall precautions call light within reach . bed in low position . bed alarm on . will continue to monitor. Addendum: 12/20/18 at 2132 by DARRYL DOMINGUEZ LVN 1:1 sitter (Darryl Dominguez ) at bedside at all times
[2018-12-20 19:17] LABS: APPEARANCE,URINE SLIGHTLY CLOUDY; BILIRUBIN, URINE NEGATIVE (NEGATIVE); COLOR,URINE PALE YELLOW; GLUCOSE, URINE (UA) NEGATIVE (NEGATIVE); KETONES,URINE NEGATIVE (NEGATIVE); LEUKOCYTE ESTERASE ,URINE 3+ (NEGATIVE); NITRITE,URINE NEGATIVE (NEGATIVE); PH,URINE 9 (4.5-8.0); PROTEIN,URINE 2+ (NEGATIVE); UROBILINOGEN,URINE NORMAL MG/DL (0.0-1.0)
--- NOTE | 2018-12-20 19:30 | NUR ---
HAND-OFF: Report given to ALEXA Allen.
--- NOTE | 2018-12-20 19:30 | NUR ---
NURSE NOTES: Received patient from Leonor LIU. Patient in bed, on room air, no s/s of respiratory distress. Patient asleep with sitter at bedside. Bed locked, in low position.
--- NOTE | 2018-12-20 20:00 | NUR ---
Condom catheter applied to patient and obtain yellow urine output 300 cc and urine culture sent to laboratory as ordered by and carried out.
--- NOTE | 2018-12-20 20:45 | Consultation ---
DATE OF CONSULTATION: 12/20/2018 CONSULTING PHYSICIAN: Daniel Delacruz M.D. HISTORY OF PRESENT ILLNESS: This is a 68-year-old male with a history of multiple medical issues, who has been admitted to the hospital for hypotension. During the evaluation, the patient was hypotensive. He was yelling, screaming, agitated, unable to provide any meaningful history. The patient also attempted to pull out his intravenous access. He was placed on a restraint. The patient was also given Ativan 2 mg, medication has not been effective. The patient is confused and disoriented, presents with disorganized speech and behavior. Denied any suicidal or homicidal ideation. The patient does not know his name, does not know that he is in the hospital. The patient is unable to understand, process, communicate, nor appreciate the information given to him in regards to his current situation, medical condition. PAST PSYCHIATRIC HISTORY: Unknown. PAST MEDICAL HISTORY: Unable to assess. ALLERGIES: No known drug allergies. SUBSTANCE ABUSE HISTORY: Unable to assess. MENTAL STATUS EXAMINATION: The patient is alert, confused, disoriented, has psychomotor agitation and yelling. Mood is agitated. Affect is appropriate and congruent with mood. Thought process is disorganized. Thought content, positive for delusions. Memory, concentration, and attention is impaired. Insight and judgment non-existent. ASSESSMENT: Courtenay I Acute encephalopathy. Psychotic disorder. Courtenay II Deferred. Courtenay III Hypotension. Courtenay IV Low. Courtenay V 10. PLAN: We will start the patient on low dose of antipsychotics. We will continue the Ativan as needed. Also, start the patient on low dose of antipsychotics. We will continue to follow and readjust the medications. Daniel Delacruz M.D. DR: CHRISTOPHER JOB#: [id number] CC:
[2018-12-20] MEDS: Tamsulosin 0.4mg cap ORAL SCH (21:56)
--- NOTE | 2018-12-20 23:30 | History and Physical Report ---
DATE OF ADMISSION: 12/19/2018 HISTORY OF PRESENT ILLNESS: The patient comes in. EKG shows first-degree AV block. He was admitted for hypertension, altered mental status. More lethargic than baseline as well as dehydration. The patient is a poor historian, cannot get any reliable history from the patient. Admitted for those reasons. PAST MEDICAL HISTORY: Dementia, psychosis, hypertension, depression, GERD, iron deficiency anemia, neuropathy, NIDDM, BPH, malnutrition, history of wounds. ALLERGIES: Cheese and nifedipine. MEDICATIONS: Albuterol, vitamin C, aspirin, clonidine, Lexapro, gabapentin, iron, famotidine, losartan, insulin, Seroquel, Flomax. FAMILY HISTORY: Unable to obtain. SOCIAL HISTORY: Unable to obtain. REVIEW OF SYSTEMS: Unable to obtain, very poor historian. PHYSICAL EXAMINATION: VITAL SIGNS: Temperature 99.1, pulse is 98, blood pressure 172/114. HEENT: PERRLA. NECK: Supple. No lymphadenopathy. CHEST: Clear to auscultation. CARDIOVASCULAR: Regular rate and rhythm. GASTROINTESTINAL: Soft, nontender, nondistended. Positive bowel sounds. No organomegaly. EXTREMITIES: 1+ edema. NEUROLOGIC: Reflexes equal on both sides. Non-oriented, very agitated, screaming. Does not follow neurological exam. LABORATORY DATA: WBC of 5.7, hemoglobin 10.6, platelets 256. Sodium 144, potassium 4.1, chloride 108, BUN of 15, creatinine 1.2, glucose 142. ASSESSMENT AND PLAN: EKG shows first-degree AV block, hypertension, altered mental status, dehydration, agitated, screaming, and also has DVT. I have consulted Dr. Collin Mackey, Dr. Cueva, Dr. Morgan, Dr. Cain, Dr. Can, Dr. Calderon, and Dr. Delacruz for the wounds that he has as well as for agitation as well as for his DVT as well as for his dehydration, AMS, hypertension management as well. Cher Araiza M.D. DR: AURELIANO JOB#: [id number] CC:
[2018-12-21] VITALS (7 sets, daily range): BP systolic 117–153; BP diastolic 71–98
[2018-12-21] MEDS: LORazepam 1mg tab ORAL SCH ×5 (01:00→13:00)
[2018-12-21] MEDS: HydrALAZINE 25mg tab ORAL SCH ×4 (06:00→22:00)
[2018-12-21] MEDS: NovoLOG Insulin Flexpen SUBQ SCH ×4 (06:06→21:50)
[2018-12-21 06:25] LABS: BASOPHILS % (AUTO) 0.5 % (0.0-2.0); EOSINOPHILS % (AUTO) 1.5 % (0.0-3.0); HEMATOCRIT 34.2 % (42.0-52.0); HEMOGLOBIN 10.7 G/DL (14.2-18.0); LYMPHOCYTES % (AUTO) 27.5 % (20.0-45.0); MEAN CORPUSCULAR VOLUME 89 FL (80-99); MONOCYTES % (AUTO) 9.5 % (1.0-10.0); PLATELET COUNT 250 K/UL (150-450); RED BLOOD COUNT 3.86 M/UL (4.70-6.10); RED CELL DISTRIBUTION WIDTH 13.8 % (11.6-14.8); WHITE BLOOD COUNT 5.9 K/UL (4.8-10.8)
[2018-12-21] MEDS: LORazepam Inj 2mg/ml 1ml IV PRN (06:34)
[2018-12-21 07:11] LABS: ALANINE AMINOTRANSFERASE 10 U/L (12-78); ALBUMIN 2.7 G/DL (3.4-5.0); ALBUMIN/GLOBULIN RATIO 0.6 (1.0-2.7); ALKALINE PHOSPHATASE 76 U/L (46-116); ANION GAP 8 mmol/L (5-15); ASPARTATE AMINO TRANSFERASE 12 U/L (15-37); BILIRUBIN,TOTAL 0.3 MG/DL (0.2-1.0); BLOOD UREA NITROGEN 9 mg/dL (7-18); CALCIUM 9.2 MG/DL (8.5-10.1); CARBON DIOXIDE 28 MMOL/L (21-32); CHLORIDE 111 MMOL/L (98-107); CHOLESTEROL 153 MG/DL (< 200); CREATINE KINASE 78 U/L (26-308); CREATININE 1.2 MG/DL (0.55-1.30); FERRITIN 165 NG/ML (8-388); GAMMA GLUTAMYL TRANSPEPTIDASE 26 U/L (5-85); HDL CHOLESTEROL 37 MG/DL (40-60); PHOSPHORUS 4.3 MG/DL (2.5-4.9); POTASSIUM 3.9 MMOL/L (3.5-5.1); SODIUM 147 MMOL/L (136-145); TRIGLYCERIDES 121 MG/DL (30-150)
--- NOTE | 2018-12-21 07:17 | NUR ---
HAND-OFF: Report given to Clementine 1:1 sitter .
[2018-12-21 07:31] LABS: % IRON SATURATION 38 % (15-50); IRON 58 ug/dL (50-175); TOTAL IRON BINDING CAPACITY 153 ug/dL (250-450)
--- NOTE | 2018-12-21 07:46 | NUR ---
NURSE NOTES: pt in bed with sitter for safety as the pt is unpredictable and has been seen trying to get out of bed and pulling his IV and surveillance system monitor, bed alarm on, call light next to pt, pt yelling this morning asking for his breakfast, pt received breakfast and stopped yelling, IV intact and patent, 3 rails up, morning labs WNL, pt on 2L NC, NO s/s of distress or sob noted.
--- NOTE | 2018-12-21 08:57 | Pulmonology Progress Note ---
Assessment/Plan Assessment/Plan Pulmonary Progress Note HPI Patient is a 68-year-old man with a history of hypertension, CAD, hyperlipidemia , diabetes, dementia, COPD (current smoker), GERD. He presents from his nursing facility for evaluation of shortness of breath, hypotension and decreased arousal this morning. According to transfer paperwork, the patient was found in a very deep sleep, hypotensive with blood pressures 84/40s and was difficult to awaken. Noted to have a right leg DVT, V/Q scan, CT head pending. Psychiatry following Patient noted to be in an agitated condition on admission, denies any chest pain, recent illness, shortness of breath, cough, leg swelling, abdominal pain, vomiting, diarrhea, rash, dysuria, flank pain or any other change in his health. He is a poor historian and does not appear to have significant insight into his medical conditions. He appears in no acute distress at this time. PMH: Diabetes, hypertension, hypertension, hyperlipidemia, dementia, COPD, GERD , CAD PSH: Patient states multiple but does not recall specific surgeries Allergies: nifedipine, cheese Social Hx: Current smoker, denies alcohol or drug use All Other Systems: negative except mentioned in HPI Physical Exam Vital Signs Noted General: Awake and alert, no acute distress, agitated mental state HEENT: NC/AT. EOMI. PERRLA. Moist mucous membranes. Neck: Supple, trachea midline Chest Wall: No tenderness, no deformity Cardiovascular: RRR. S1 and S2 normal. No murmur appreciated Resp: Normal work of breathing. No cough, wheezing or crackles appreciated Abdomen: Abdomen is soft, nondistended. Nontender Skin: Intact. No abrasions, laceration or rash over the exposed skin MSK: Normal tone and bulk. Moving all extremities. No obvious deformity. No lower extremity edema. Neuro: Awake and alert. Agitated. Moving all extremities. Follows two-step commands. Impression: DVT Hypotension Need to r/o PE COPD Diabetes Hypertension Hyperlipidemia Dementia GERD CAD Plan - O2 PRN - Continue Lovenox, dose per Pharmacy - IVF PRN - VQ scan - CT Head - Psychiatry following - HHN - [facility] meds - Psychiatry following - Monitor labs - PPX Laboratory Tests Noted Test 12/19/18 14:10 White Blood Count 5.7 K/UL (4.8-10.8) Red Blood Count 3.88 M/UL (4.70-6.10) L Hemoglobin 10.6 G/DL (14.2-18.0) L Hematocrit 34.6 % (42.0-52.0) L Mean Corpuscular Volume 89 FL (80-99) Mean Corpuscular Hemoglobin 27.3 PG (27.0-31.0) Mean Corpuscular Hemoglobin Concent 30.6 G/DL (32.0-36.0) L Red Cell Distribution Width 14.1 % (11.6-14.8) Platelet Count 256 K/UL (150-450) Mean Platelet Volume 7.9 FL (6.5-10.1) Neutrophils (%) (Auto) 64.3 % (45.0-75.0) Lymphocytes (%) (Auto) 25.2 % (20.0-45.0) Monocytes (%) (Auto) 7.6 % (1.0-10.0) Eosinophils (%) (Auto) 1.8 % (0.0-3.0) Basophils (%) (Auto) 1.0 % (0.0-2.0) Sodium Level 144 MMOL/L (136-145) Potassium Level 4.1 MMOL/L (3.5-5.1) Chloride Level 108 MMOL/L (98-107) H Carbon Dioxide Level 28 MMOL/L (21-32) Anion Gap 8 mmol/L (5-15) Blood Urea Nitrogen 15 mg/dL (7-18) Creatinine 1.2 MG/DL (0.55-1.30) Estimate Glomerular Filtration Rate > 60 mL/min (>60) Glucose Level 142 MG/DL (74-106) H Calcium Level 9.2 MG/DL (8.5-10.1) Magnesium Level 2.0 MG/DL (1.8-2.4) Total Bilirubin 0.3 MG/DL (0.2-1.0) Aspartate Amino Transferase (AST) 19 U/L (15-37) Alanine Aminotransferase (ALT) 10 U/L (12-78) L Alkaline Phosphatase 81 U/L (46-116) Total Creatine Kinase 123 U/L (26-308) Creatine Kinase MB 0.8 NG/ML (0.0-3.6) Creatine Kinase MB Relative Index 0.6 Troponin I 0.000 ng/mL (0.000-0.056) Pro-B-Type Natriuretic Peptide 322 pg/mL (0-125) H Total Protein 7.3 G/DL (6.4-8.2) Albumin 2.9 G/DL (3.4-5.0) L Globulin 4.4 g/dL Albumin/Globulin Ratio 0.7 (1.0-2.7) L EKG Time: 14:05 Rate: normal Rhythm: NSR Other Impression First-degree AV block with CO interval 222 ms, left axis deviation, no acute ischemic changes CXR: no acute changes Subjective ROS Limited/Unobtainable: No Allergies: Coded Allergies: CHEESE (Verified Allergy, Unknown, 08/06/17) NIFEDIPINE (Verified Allergy, Unknown, 08/06/17) Objective Last 24 Hour Vital Signs Date Time Temp Pulse Resp B/P (MAP) Pulse Ox O2 Delivery O2 Flow Rate FiO2 12/21/18 08:29 Room Air 12/21/18 08:16 98.1 86 18 147/90 (109) 96 12/21/18 06:32 98.2 82 20 148/87 (107) 96 12/21/18 06:11 64 153/98 (116) 12/21/18 06:00 148/87 12/21/18 04:00 97.2 80 20 117/76 (90) 100 12/21/18 03:24 82 12/20/18 23:43 97.2 84 20 117/74 (88) 100 12/20/18 23:26 86 12/20/18 22:00 117/76 12/20/18 21:57 98.0 94 20 117/76 (90) 100 12/20/18 21:00 Room Air 12/20/18 20:00 90 12/20/18 20:00 97.2 90 20 115/77 (90) 95 12/20/18 19:42 97 Room Air 12/20/18 16:00 105 12/20/18 16:00 99.1 94 20 149/91 (110) 97 12/20/18 14:05 172/114 12/20/18 12:00 102 12/20/18 12:00 99.1 98 20 172/114 (133) 99 12/20/18 11:54 172/114 12/20/18 09:00 Room Air Intake and Output 12/20/18 12/21/18 19:00 07:00 Intake Total 490 ml 140 ml Output Total 950 ml Balance 490 ml -810 ml Intake Oral 490 ml 140 ml Output Urine Total 950 ml # Voids 7 3 # Bowel Movements 5 Microbiology Date/Time Source Procedure Growth Status 12/20/18 16:00 Urine,Clean Catch Urine Culture - Preliminary Gram Negative Bacillus 1 Resulted Laboratory Tests 12/20/18 16:00: Urine Color Pale yellow, Urine Appearance Slightly cloudy, Urine pH 9, Urine Specific [place] 1.015, Urine Protein 2+H, Urine Glucose (UA) Negative, Urine Ketones Negative, Urine Blood 2+H, Urine Nitrite Negative, Urine Bilirubin Negative, Urine Urobilinogen Normal, Urine Leukocyte Esterase 3+H, Urine RBC 2- 4H, Urine WBC 5-10H, Urine Squamous Epithelial Cells None, Urine Bacteria ModerateH 12/21/18 05:59: White Blood Count 5.9, Red Blood Count 3.86L, Hemoglobin 10.7L, Hematocrit 34.2L , Mean Corpuscular Volume 89, Mean Corpuscular Hemoglobin 27.6, Mean Corpuscular Hemoglobin Concent 31.2L, Red Cell Distribution Width 13.8, Platelet Count 250, Mean Platelet Volume 7.2, Neutrophils (%) (Auto) 61.0, Lymphocytes (%) (Auto) 27.5, Monocytes (%) (Auto) 9.5, Eosinophils (%) (Auto) 1.5, Basophils (%) (Auto) 0.5, Sodium Level 147H, Potassium Level 3.9, Chloride Level 111H, Carbon Dioxide Level 28, Anion Gap 8, Blood Urea Nitrogen 9, Creatinine 1.2, Estimat Glomerular Filtration Rate > 60, Glucose Level 125H, Hemoglobin A1c 6.6H, Uric Acid 6.1, Calcium Level 9.2, Phosphorus Level 4.3, Magnesium Level 2.0, Iron Level 58, Total Iron Binding Capacity 153L, Percent Iron Saturation 38, Unsaturated Iron Binding 95L, Ferritin 165, Total Bilirubin 0.3, Gamma Glutamyl Transpeptidase 26, Aspartate Amino Transf (AST/SGOT) 12L, Alanine Aminotransferase (ALT/SGPT) 10L, Alkaline Phosphatase 76, Total Creatine Kinase 78, Troponin I 0.018, C-Reactive Protein, Quantitative 2.6H, Pro -B-Type Natriuretic Peptide 619H, Total Protein 6.9, Albumin 2.7L, Globulin 4.2 , Albumin/Globulin Ratio 0.6L, Triglycerides Level 121, Cholesterol Level 153, LDL Cholesterol 86, HDL Cholesterol 37L, Cholesterol/HDL Ratio 4.1, Carcinoembryonic Antigen [Pending], Vitamin B12 Level 504, Folate 21.0, Thyroid Stimulating Hormone (TSH) 0.809, Cortisol AM Sample [Pending] Current Medications Medications (Trade) Dose Ordered Sig/Jamila Route PRN Reason Start Time Stop Time Status Last Admin Dose Admin Acetaminophen (Tylenol) 325 mg Q4H PRN RECTAL Mild Pain/Temp > 100.5 12/19/18 18:45 01/18/19 18:44 Acetaminophen (Tylenol) 650 mg Q4H PRN ORAL Mild Pain/Temp > 100.5 12/19/18 18:45 01/18/19 18:44 Albuterol/ Ipratropium (Albuterol/ Ipratropium) 3 ml Q4H PRN HHN Shortness of Breath 12/19/18 22:45 12/24/18 22:44 Ascorbic Acid (Vitamin C) 250 mg TWICE A DAY ORAL 12/21/18 09:00 01/20/19 08:59 Aspirin (Ecotrin) 81 mg DAILY ORAL 12/20/18 09:00 01/19/19 08:59 12/20/18 08:26 Clonidine HCl (Catapres Tab) 0.1 mg Q4H PRN ORAL SBP>170 12/20/18 13:15 01/18/19 18:44 Dextrose (Dextrose 50%) 25 ml Q30M PRN IV Hypoglycemia 12/19/18 19:00 01/18/19 18:59 Dextrose (Dextrose 50%) 50 ml Q30M PRN IV Hypoglycemia 12/19/18 19:00 01/18/19 18:59 Docusate Sodium (Colace) 100 mg THREE TIMES A DAY ORAL 12/20/18 13:00 01/19/19 12:59 Enoxaparin Sodium (Lovenox) 30 mg DAILY SUBQ 12/20/18 11:00 01/19/19 10:59 12/20/18 10:53 Enoxaparin Sodium (Lovenox) 80 mg DAILY SUBQ 12/20/18 11:00 01/19/19 10:59 12/20/18 10:54 Escitalopram Oxalate (Lexapro) 10 mg DAILY ORAL 12/20/18 09:00 01/19/19 08:59 12/20/18 08:26 Gabapentin (Neurontin) 300 mg THREE TIMES A DAY ORAL 12/20/18 09:00 01/19/19 08:59 12/20/18 17:44 Hydralazine HCl (Apresoline) 75 mg EVERY 8 HOURS ORAL 12/20/18 14:00 01/19/19 00:00 12/20/18 14:05 Insulin Aspart (NovoLOG) BEFORE MEALS AND HS SUBQ 12/19/18 21:00 01/18/19 20:59 12/21/18 06:06 Lorazepam (Ativan 2mg/ml 1ml) 0.5 mg Q6H PRN IV For Anxiety 12/20/18 01:15 12/27/18 01:14 12/21/18 06:34 Lorazepam (Ativan) 2 mg Q4HR ORAL 12/20/18 17:00 12/27/18 16:59 12/21/18 04:30 Losartan Potassium (Cozaar) 100 mg DAILY ORAL 12/20/18 09:00 01/19/19 08:59 12/20/18 08:26 Magnesium Hydroxide (Mom) 30 ml DAILY ORAL 12/20/18 09:00 01/19/19 08:59 Megestrol Acetate (Megace) 400 mg TWICE A DAY ORAL 12/21/18 09:00 01/20/19 08:59 Montelukast Sodium (Singulair) 10 mg QPM ORAL 12/20/18 16:30 01/19/19 16:29 12/20/18 16:38 Olanzapine (ZyPREXA) 5 mg TID ORAL 12/20/18 18:00 01/19/19 17:59 12/20/18 17:43 Pantoprazole (Protonix) 40 mg EVERY 12 HOURS ORAL 12/20/18 21:00 01/19/19 20:59 12/20/18 21:55 Potassium Chloride (K-Dur) 20 meq TWICE A DAY ORAL 12/20/18 13:15 01/19/19 13:14 12/20/18 17:43 Tamsulosin HCl (Flomax) 0.4 mg BEDTIME ORAL 12/19/18 21:00 01/18/19 20:59 12/20/18 21:56 Tiotropium [place] (Spiriva Inhaler) 1 puff DAILY INH 12/20/18 09:00 01/19/19 08:59 Wayne Cueva MD Dec 21, 2018 08:57
[2018-12-21] MEDS: Docusate 100mg cap ORAL SCH ×4 (09:20→18:00)
[2018-12-21] MEDS: Losartan 50mg tab ORAL SCH ×2 (09:20→09:30)
[2018-12-21] MEDS: Aspirin EC 81mg tab ORAL SCH ×2 (09:20→09:30)
[2018-12-21] MEDS: Milk of Magnesia 30ml Ud ORAL SCH ×2 (09:21→09:30)
[2018-12-21] MEDS: Megace 400mg/10ml Susp ORAL SCH ×3 (09:21→18:11)
[2018-12-21] MEDS: Ascorbic Acid 500mg tab ORAL SCH ×3 (09:21→18:11)
[2018-12-21] MEDS: Enoxaparin 30mg Inj SUBQ SCH ×2 (09:22→09:30)
[2018-12-21] MEDS: Enoxaparin 80mg Inj SUBQ SCH ×2 (09:22→09:30)
[2018-12-21] MEDS ORDERED: Haloperidol 5mg/ml Inj IM SCH (11:45)
[2018-12-21] MEDS ORDERED: LORazepam Inj 2mg/ml 1ml IM SCH (11:45)
[2018-12-21] MEDS ORDERED: DiphenhydrAMINE 50mg/ml Inj IM SCH (11:45)
--- NOTE | 2018-12-21 12:58 | Nephrology Progress Note ---
Assessment/Plan Problem List: (1) Hypotension Assessment: Fluctuating BP (2) Failure to thrive (3) Hypoalbuminemia due to protein-calorie malnutrition (4) Diabetes 1.5, managed as type 2 (5) UTI (urinary tract infection) Assessment Uncontrolled BP fluctuating HypoKalemia Diabetes, Acute metabolic encephalopathy dementia, COPD, GERD, CAD ?UTI Plan PO KCL Adjust BP meds UA Protonix BP and BS in check Per orders one liter IV 1/2NS Objective Objective Last 24 Hour Vital Signs Date Time Temp Pulse Resp B/P (MAP) Pulse Ox O2 Delivery O2 Flow Rate FiO2 12/21/18 09:46 95 Room Air 21 12/21/18 09:45 Room Air 21 12/21/18 09:43 104 18 95 Room Air 12/21/18 08:29 Room Air 12/21/18 08:16 98.1 86 18 147/90 (109) 96 12/21/18 07:52 79 12/21/18 06:32 98.2 82 20 148/87 (107) 96 12/21/18 06:11 64 153/98 (116) 12/21/18 06:00 148/87 12/21/18 04:00 97.2 80 20 117/76 (90) 100 12/21/18 03:24 82 12/20/18 23:43 97.2 84 20 117/74 (88) 100 12/20/18 23:26 86 12/20/18 22:00 117/76 12/20/18 21:57 98.0 94 20 117/76 (90) 100 12/20/18 21:00 Room Air 12/20/18 20:00 90 12/20/18 20:00 97.2 90 20 115/77 (90) 95 12/20/18 19:42 97 Room Air 12/20/18 16:00 105 12/20/18 16:00 99.1 94 20 149/91 (110) 97 12/20/18 14:05 172/114 Intake and Output 12/20/18 12/21/18 19:00 07:00 Intake Total 490 ml 140 ml Output Total 950 ml Balance 490 ml -810 ml Intake Oral 490 ml 140 ml Output Urine Total 950 ml # Voids 7 3 # Bowel Movements 5 Laboratory Tests 12/20/18 16:00: Urine Color Pale yellow, Urine Appearance Slightly cloudy, Urine pH 9, Urine Specific [place] 1.015, Urine Protein 2+H, Urine Glucose (UA) Negative, Urine Ketones Negative, Urine Blood 2+H, Urine Nitrite Negative, Urine Bilirubin Negative, Urine Urobilinogen Normal, Urine Leukocyte Esterase 3+H, Urine RBC 2- 4H, Urine WBC 5-10H, Urine Squamous Epithelial Cells None, Urine Bacteria ModerateH 12/21/18 05:59: White Blood Count 5.9, Red Blood Count 3.86L, Hemoglobin 10.7L, Hematocrit 34.2L , Mean Corpuscular Volume 89, Mean Corpuscular Hemoglobin 27.6, Mean Corpuscular Hemoglobin Concent 31.2L, Red Cell Distribution Width 13.8, Platelet Count 250, Mean Platelet Volume 7.2, Neutrophils (%) (Auto) 61.0, Lymphocytes (%) (Auto) 27.5, Monocytes (%) (Auto) 9.5, Eosinophils (%) (Auto) 1.5, Basophils (%) (Auto) 0.5, Sodium Level 147H, Potassium Level 3.9, Chloride Level 111H, Carbon Dioxide Level 28, Anion Gap 8, Blood Urea Nitrogen 9, Creatinine 1.2, Estimat Glomerular Filtration Rate > 60, Glucose Level 125H, Hemoglobin A1c 6.6H, Uric Acid 6.1, Calcium Level 9.2, Phosphorus Level 4.3, Magnesium Level 2.0, Iron Level 58, Total Iron Binding Capacity 153L, Percent Iron Saturation 38, Unsaturated Iron Binding 95L, Ferritin 165, Total Bilirubin 0.3, Gamma Glutamyl Transpeptidase 26, Aspartate Amino Transf (AST/SGOT) 12L, Alanine Aminotransferase (ALT/SGPT) 10L, Alkaline Phosphatase 76, Total Creatine Kinase 78, Troponin I 0.018, C-Reactive Protein, Quantitative 2.6H, Pro -B-Type Natriuretic Peptide 619H, Total Protein 6.9, Albumin 2.7L, Globulin 4.2 , Albumin/Globulin Ratio 0.6L, Triglycerides Level 121, Cholesterol Level 153, LDL Cholesterol 86, HDL Cholesterol 37L, Cholesterol/HDL Ratio 4.1, Carcinoembryonic Antigen [Pending], Vitamin B12 Level 504, Folate 21.0, Thyroid Stimulating Hormone (TSH) 0.809, Cortisol AM Sample [Pending] Height (Feet): 6 Height (Inches): 0.00 Weight (Pounds): 164 Wencesalo Morgan MD Dec 21, 2018 12:58
--- NOTE | 2018-12-21 13:41 | Diagnostic Imaging Report ---
APPROVED REPORT CPT Code: 61836 Present Symptoms Comments: BILATERAL LEGS PAIN. RIGHT LEG: Venous imaging reveals acute thrombus in the superficial femoral to popliteal veins. Imaging also reveals Large collateral vein noted anterior to the superficial femoral artery. No evidence of thrombus within the common femoral or tibial segments. Greater saphenous vein also within normal limits. LEFT LEG: Venous imaging reveals a patent deep venous system. There is no evidence of thrombus within the femoral, popliteal or tibial segments. The greater saphenous vein is also within normal limits. Doppler indicates normal spontaneous flow within these segments. ALEXA FAJARDO WAS INFORMED AT 20:51 HRS.
--- NOTE | 2018-12-21 13:45 | NUR ---
NURSE NOTES: Pt has been verbally abusive with staff and attempting to get out of bed, pt was kicking and fighting off staff. Called mD for restraints and suggestions to calm the pt. 02/14/25 was ordered Haldol ativan and benadryl given.. and put on restraints.
--- NOTE | 2018-12-21 13:52 | Cardiac Electrophysiology PN ---
Subjective Subjective [id number] Objective Last 24 Hour Vital Signs Date Time Temp Pulse Resp B/P (MAP) Pulse Ox O2 Delivery O2 Flow Rate FiO2 12/21/18 09:46 95 Room Air 21 12/21/18 09:45 Room Air 21 12/21/18 09:43 104 18 95 Room Air 21 12/21/18 08:29 Room Air 12/21/18 08:16 98.1 86 18 147/90 (109) 96 12/21/18 07:52 79 12/21/18 06:32 98.2 82 20 148/87 (107) 96 12/21/18 06:11 64 153/98 (116) 12/21/18 06:00 148/87 12/21/18 04:00 97.2 80 20 117/76 (90) 100 12/21/18 03:24 82 12/20/18 23:43 97.2 84 20 117/74 (88) 100 12/20/18 23:26 86 12/20/18 22:00 117/76 12/20/18 21:57 98.0 94 20 117/76 (90) 100 12/20/18 21:00 Room Air 12/20/18 20:00 90 12/20/18 20:00 97.2 90 20 115/77 (90) 95 12/20/18 19:42 97 Room Air 12/20/18 16:00 105 12/20/18 16:00 99.1 94 20 149/91 (110) 97 12/20/18 14:05 172/114 Intake and Output 12/20/18 12/21/18 19:00 07:00 Intake Total 490 ml 140 ml Output Total 950 ml Balance 490 ml -810 ml Intake Oral 490 ml 140 ml Output Urine Total 950 ml # Voids 7 3 # Bowel Movements 5 Laboratory Tests Test 12/20/18 16:00 12/21/18 05:59 Urine Color Pale yellow Urine Appearance Slightly cloudy Urine pH 9 (4.5-8.0) Urine Specific [place] 1.015 (1.005-1.035) Urine Protein 2+ (NEGATIVE) H Urine Glucose (UA) Negative (NEGATIVE) Urine Ketones Negative (NEGATIVE) Urine Blood 2+ (NEGATIVE) H Urine Nitrite Negative (NEGATIVE) Urine Bilirubin Negative (NEGATIVE) Urine Urobilinogen Normal MG/DL (0.0-1.0) Urine Leukocyte Esterase 3+ (NEGATIVE) H Urine RBC 2-4 /HPF (0 - 0) H Urine WBC 5-10 /HPF (0 - 0) H Urine Squamous Epithelial Cells None /LPF (NONE/OCC) Urine Bacteria Moderate /HPF (NONE) H White Blood Count 5.9 K/UL (4.8-10.8) Red Blood Count 3.86 M/UL (4.70-6.10) L Hemoglobin 10.7 G/DL (14.2-18.0) L Hematocrit 34.2 % (42.0-52.0) L Mean Corpuscular Volume 89 FL (80-99) Mean Corpuscular Hemoglobin 27.6 PG (27.0-31.0) Mean Corpuscular Hemoglobin Concent 31.2 G/DL (32.0-36.0) L Red Cell Distribution Width 13.8 % (11.6-14.8) Platelet Count 250 K/UL (150-450) Mean Platelet Volume 7.2 FL (6.5-10.1) Neutrophils (%) (Auto) 61.0 % (45.0-75.0) Lymphocytes (%) (Auto) 27.5 % (20.0-45.0) Monocytes (%) (Auto) 9.5 % (1.0-10.0) Eosinophils (%) (Auto) 1.5 % (0.0-3.0) Basophils (%) (Auto) 0.5 % (0.0-2.0) Sodium Level 147 MMOL/L (136-145) H Potassium Level 3.9 MMOL/L (3.5-5.1) Chloride Level 111 MMOL/L (98-107) H Carbon Dioxide Level 28 MMOL/L (21-32) Anion Gap 8 mmol/L (5-15) Blood Urea Nitrogen 9 mg/dL (7-18) Creatinine 1.2 MG/DL (0.55-1.30) Estimat Glomerular Filtration Rate > 60 mL/min (>60) Glucose Level 125 MG/DL (74-106) H Hemoglobin A1c 6.6 % (4.3-6.0) H Uric Acid 6.1 MG/DL (2.6-7.2) Calcium Level 9.2 MG/DL (8.5-10.1) Phosphorus Level 4.3 MG/DL (2.5-4.9) Magnesium Level 2.0 MG/DL (1.8-2.4) Iron Level 58 ug/dL (50-175) Total Iron Binding Capacity 153 ug/dL (250-450) L Percent Iron Saturation 38 % (15-50) Unsaturated Iron Binding 95 ug/dL (112-346) L Ferritin 165 NG/ML (8-388) Total Bilirubin 0.3 MG/DL (0.2-1.0) Gamma Glutamyl Transpeptidase 26 U/L (5-85) Aspartate Amino Transf (AST/SGOT) 12 U/L (15-37) L Alanine Aminotransferase (ALT/SGPT) 10 U/L (12-78) L Alkaline Phosphatase 76 U/L (46-116) Total Creatine Kinase 78 U/L (26-308) Troponin I 0.018 ng/mL (0.000-0.056) C-Reactive Protein, Quantitative 2.6 mg/dL (0.00-0.90) H Pro-B-Type Natriuretic Peptide 619 pg/mL (0-125) H Total Protein 6.9 G/DL (6.4-8.2) Albumin 2.7 G/DL (3.4-5.0) L Globulin 4.2 g/dL Albumin/Globulin Ratio 0.6 (1.0-2.7) L Triglycerides Level 121 MG/DL (30-150) Cholesterol Level 153 MG/DL (< 200) LDL Cholesterol 86 mg/dL (<100) HDL Cholesterol 37 MG/DL (40-60) L Cholesterol/HDL Ratio 4.1 (3.3-4.4) Carcinoembryonic Antigen Pending Vitamin B12 Level 504 PG/ML (193-986) Folate 21.0 NG/ML (8.6-58.9) Thyroid Stimulating Hormone (TSH) 0.809 uiU/mL (0.358-3.740) Cortisol AM Sample Pending Microbiology Date/Time Source Procedure Growth Status 12/20/18 16:00 Urine,Clean Catch Urine Culture - Preliminary Gram Negative Bacillus 1 Resulted Nelson Cain MD Dec 21, 2018 13:52
[2018-12-21] MEDS ORDERED: Haloperidol 5mg/ml Inj IM PRN ×2 (14:12→14:15)
[2018-12-21] MEDS ORDERED: LORazepam Inj 2mg/ml 1ml IV PRN (14:27)
[2018-12-21] MEDS ORDERED: LORazepam 1mg tab ORAL PRN (15:45)
[2018-12-21] MEDS: Montelukast 10mg tablet ORAL SCH (16:30)
--- NOTE | 2018-12-21 16:58 | Hematology/Onc Progress Note ---
Assessment/Plan Assessment/Plan Assessment and Recs: # Anemia of chronic disease due to underlying chronic medical issues, multifactorial --> Anemia workup shows acd, ferritin >100 --> No evidence of hemolysis is noted, peripheral smear has been reviewed. --> Hgb goal >7. Transfuse prn. --> Epogen or iron at this time is not particularly indicated --> Medications have been reviewed --> hgb trend 10.3-->10.7 --> low threshold for gi evaluation in case has occult + # Failure to thrive (FTT) - decreased bmi and low protein --> have ordered for cea level --> willf/u on q3d caloric counts --> may consider mirtazapine as appetite stimulant --> GI consult on a prn basis, as needed for endosc # Hypotension --> ivf as per renal, now better # Respiratory distress may be due to mild chf/vascular congestion --> diuresis as needed The timing of this note does not necessarily reflect the time of the patient was seen. GREATLY APPRECIATE CONSULTATION. Subjective Constitutional: Denies: no symptoms, chills, fever, malaise, weakness, other HEENT: Denies: no symptoms, eye pain, blurred vision, tearing, double vision, ear pain, ear discharge, nose pain, nose congestion, throat pain, throat swelling, mouth pain, mouth swelling, other Cardiovascular: Denies: no symptoms, chest pain, edema, irregular heart rate, lightheadedness, palpitations, syncope, other Respiratory: Denies: no symptoms, cough, shortness of breath, SOB with excertion, SOB at rest, sputum, wheezing, other Neurologic/Psychiatric: Denies: no symptoms, anxiety, depressed, emotional problems, headache, numbness, paresthesia, pre-existing deficit, seizure, tingling, tremors, weakness, other Allergies: Coded Allergies: CHEESE (Verified Allergy, Unknown, 08/06/17) NIFEDIPINE (Verified Allergy, Unknown, 08/06/17) Subjective 12/21: was verbally abusive towards staff in pm, in the am, was on 2l nc, agitated Objective Objective Current Medications Medications (Trade) Dose Ordered Sig/Jamila Route PRN Reason Start Time Stop Time Status Last Admin Dose Admin Acetaminophen (Tylenol) 325 mg Q4H PRN RECTAL Mild Pain/Temp > 100.5 12/19/18:45 01/18/19 18:44 Acetaminophen (Tylenol) 650 mg Q4H PRN ORAL Mild Pain/Temp > 100.5 12/19/18 18:45 01/18/19 18:44 Albuterol/ Ipratropium (Albuterol/ Ipratropium) 3 ml Q4H PRN HHN Shortness of Breath 12/19/18 22:45 12/24/18 22:44 Ascorbic Acid (Vitamin C) 250 mg TWICE A DAY ORAL 12/21/18 09:00 01/20/19 08:59 Aspirin (Ecotrin) 81 mg DAILY ORAL 12/20/18 09:00 01/19/19 08:59 12/20/18 08:26 Clonidine HCl (Catapres Tab) 0.1 mg Q4H PRN ORAL SBP>170 12/20/18 13:15 01/18/19 18:44 Dextrose (Dextrose 50%) 25 ml Q30M PRN IV Hypoglycemia 12/19/18 19:00 01/18/19 18:59 Dextrose (Dextrose 50%) 50 ml Q30M PRN IV Hypoglycemia 12/19/18 19:00 01/18/19 18:59 Docusate Sodium (Colace) 100 mg THREE TIMES A DAY ORAL 12/20/18 13:00 01/19/19 12:59 Enoxaparin Sodium (Lovenox) 30 mg DAILY SUBQ 12/20/18 11:00 01/19/19 10:59 12/20/18 10:53 Enoxaparin Sodium (Lovenox) 80 mg DAILY SUBQ 12/20/18 11:00 01/19/19 10:59 12/20/18 10:54 Escitalopram Oxalate (Lexapro) 10 mg DAILY ORAL 12/20/18 09:00 01/19/19 08:59 12/20/18 08:26 Gabapentin (Neurontin) 300 mg THREE TIMES A DAY ORAL 12/20/18 09:00 01/19/19 08:59 12/20/18 17:44 Haloperidol Lactate (Haldol) 5 mg Q6H PRN IM Agitation 12/21/18 14:30 01/20/19 14:29 Hydralazine HCl (Apresoline) 75 mg EVERY 8 HOURS ORAL 12/20/18 14:00 01/19/19 00:00 12/20/18 14:05 Insulin Aspart (NovoLOG) BEFORE MEALS AND HS SUBQ 12/19/18 21:00 01/18/19 20:59 12/21/18 06:06 Lorazepam (Ativan 2mg/ml 1ml) 1 mg Q6HR IV 12/21/18 18:00 12/28/18 17:59 Lorazepam (Ativan) 2 mg Q4H PRN ORAL agitation 12/21/18 15:45 12/28/18 15:44 Losartan Potassium (Cozaar) 100 mg DAILY ORAL 12/20/18 09:00 01/19/19 08:59 12/20/18 08:26 Magnesium Hydroxide (Mom) 30 ml DAILY ORAL 12/20/18 09:00 01/19/19 08:59 Megestrol Acetate (Megace) 400 mg TWICE A DAY ORAL 12/21/18 09:00 01/20/19 08:59 Montelukast Sodium (Singulair) 10 mg QPM ORAL 12/20/18 16:30 01/19/19 16:29 12/20/18 16:38 Olanzapine (ZyPREXA) 5 mg TID ORAL 12/20/18 18:00 01/19/19 17:59 12/20/18 17:43 Pantoprazole (Protonix) 40 mg EVERY 12 HOURS ORAL 12/20/18 21:00 01/19/19 20:59 12/20/18 21:55 Potassium Chloride (K-Dur) 20 meq TWICE A DAY ORAL 12/20/18 13:15 01/19/19 13:14 12/20/18 17:43 Sodium Chloride 1,000 ml @ 75 mls/hr [id number] ONCE IV 12/21/18 13:00 12/22/18 02:19 12/21/18 14:00 Tamsulosin HCl (Flomax) 0.4 mg BEDTIME ORAL 12/19/18 21:00 01/18/19 20:59 12/20/18 21:56 Tiotropium [place] (Spiriva Inhaler) 1 puff DAILY INH 12/20/18 09:00 01/19/19 08:59 Last 24 Hour Vital Signs Date Time Temp Pulse Resp B/P (MAP) Pulse Ox O2 Delivery O2 Flow Rate FiO2 8/7/19 14:00 147/90 12/21/18 12:00 98.6 84 20 127/84 (98) 12/21/18 11:52 91 12/21/18 09:46 95 Room Air 21 12/21/18 09:45 Room Air 21 12/21/18 09:43 104 18 95 Room Air 21 12/21/18 08:29 Room Air 12/21/18 08:16 98.1 86 18 147/90 (109) 96 12/21/18 07:52 79 12/21/18 06:32 98.2 82 20 148/87 (107) 96 12/21/18 06:11 64 153/98 (116) 12/21/18 06:00 148/87 12/21/18 04:00 97.2 80 20 117/76 (90) 100 12/21/18 03:24 82 12/20/18 23:43 97.2 84 20 117/74 (88) 100 12/20/18 23:26 86 12/20/18 22:00 117/76 12/20/18 21:57 98.0 94 20 117/76 (90) 100 12/20/18 21:00 Room Air 12/20/18 20:00 90 12/20/18 20:00 97.2 90 20 115/77 (90) 95 12/20/18 19:42 97 Room Air 12/20/18 16:00 105 12/20/18 16:00 99.1 94 20 149/91 (110) 97 12/20/18 14:05 172/114 12/20/18 12:00 102 12/20/18 12:00 99.1 98 20 172/114 (133) 99 12/20/18 11:54 172/114 12/20/18 09:00 Room Air 12/20/18 08:55 95 Room Air 21 12/20/18 08:26 159/115 12/20/18 08:00 97.1 109 20 159/115 (130) 100 12/20/18 08:00 109 12/20/18 06:17 144/78 12/20/18 04:00 103 12/20/18 04:00 98.0 103 20 126/78 (94) 99 12/20/18 00:50 95 Nasal Cannula 2.0 28 12/20/18 00:00 112 12/20/18 00:00 97.0 112 20 147/83 (104) 98 12/19/18 23:13 165/90 12/19/18 21:00 Room Air 12/19/18 20:00 97.0 89 18 161/98 (119) 97 12/19/18 20:00 89 12/19/18 17:30 91 12/19/18 17:30 Room Air 12/19/18 17:30 97.0 103 20 150/83 (105) 98 Intake and Output 12/20/18 12/21/18 18:59 06:59 Intake Total 490 ml 140 ml Output Total 950 ml Balance 490 ml -810 ml Intake Oral 490 ml 140 ml Output Urine Total 950 ml # Voids 7 3 # Bowel Movements 5 Labs Test 12/19/18 14:10 12/20/18 00:28 12/20/18 06:00 12/20/18 16:00 White Blood Count 5.7 K/UL (4.8-10.8) 6.6 K/UL (4.8-10.8) Red Blood Count 3.88 M/UL (4.70-6.10) 3.73 M/UL (4.70-6.10) Hemoglobin 10.6 G/DL (14.2-18.0) 10.3 G/DL (14.2-18.0) Hematocrit 34.6 % (42.0-52.0) 32.7 % (42.0-52.0) Mean Corpuscular Volume 89 FL (80-99) 88 FL (80-99) Mean Corpuscular Hemoglobin 27.3 PG (27.0-31.0) 27.5 PG (27.0-31.0) Mean Corpuscular Hemoglobin Concent 30.6 G/DL (32.0-36.0) 31.3 G/DL (32.0-36.0) Red Cell Distribution Width 14.1 % (11.6-14.8) 14.9 % (11.6-14.8) Platelet Count 256 K/UL (150-450) 256 K/UL (150-450) Mean Platelet Volume 7.9 FL (6.5-10.1) 7.1 FL (6.5-10.1) Neutrophils (%) (Auto) 64.3 % (45.0-75.0) 64.0 % (45.0-75.0) Lymphocytes (%) (Auto) 25.2 % (20.0-45.0) 25.7 % (20.0-45.0) Monocytes (%) (Auto) 7.6 % (1.0-10.0) 7.7 % (1.0-10.0) Eosinophils (%) (Auto) 1.8 % (0.0-3.0) 1.7 % (0.0-3.0) Basophils (%) (Auto) 1.0 % (0.0-2.0) 0.9 % (0.0-2.0) Sodium Level 144 MMOL/L (136-145) 142 MMOL/L (136-145) Potassium Level 4.1 MMOL/L (3.5-5.1) 3.4 MMOL/L (3.5-5.1) Chloride Level 108 MMOL/L (98-107) 108 MMOL/L (98-107) Carbon Dioxide Level 28 MMOL/L (21-32) 29 MMOL/L (21-32) Anion Gap 8 mmol/L (5-15) 5 mmol/L (5-15) Blood Urea Nitrogen 15 mg/dL (7-18) 11 mg/dL (7-18) Creatinine 1.2 MG/DL (0.55-1.30) 1.2 MG/DL (0.55-1.30) Estimat Glomerular Filtration Rate > 60 mL/min (>60) > 60 mL/min (>60) Glucose Level 142 MG/DL (74-106) 98 MG/DL (74-106) Calcium Level 9.2 MG/DL (8.5-10.1) 9.2 MG/DL (8.5-10.1) Magnesium Level 2.0 MG/DL (1.8-2.4) Total Bilirubin 0.3 MG/DL (0.2-1.0) 0.3 MG/DL (0.2-1.0) Aspartate Amino Transf (AST/SGOT) 19 U/L (15-37) 13 U/L (15-37) Alanine Aminotransferase (ALT/SGPT) 10 U/L (12-78) 11 U/L (12-78) Alkaline Phosphatase 81 U/L (46-116) 75 U/L (46-116) Total Creatine Kinase 123 U/L (26-308) Creatine Kinase MB 0.8 NG/ML (0.0-3.6) Creatine Kinase MB Relative Index 0.6 Troponin I 0.000 ng/mL (0.000-0.056) Pro-B-Type Natriuretic Peptide 322 pg/mL (0-125) Total Protein 7.3 G/DL (6.4-8.2) 6.9 G/DL (6.4-8.2) Albumin 2.9 G/DL (3.4-5.0) 2.7 G/DL (3.4-5.0) Globulin 4.4 g/dL 4.2 g/dL Albumin/Globulin Ratio 0.7 (1.0-2.7) 0.6 (1.0-2.7) Arterial Blood pH 7.418 (7.350-7.450) Arterial Blood Partial Pressure CO2 41.3 mmHg (35.0-45.0) Arterial Blood Partial Pressure O2 107.7 mmHg (75.0-100.0) Arterial Blood HCO3 26.1 mmol/L (22.0-26.0) Arterial Blood Oxygen Saturation 97.7 % (95-100) Arterial Blood Base Excess 1.4 (-2-2) Nate Test Positive Urine Color Pale yellow Urine Appearance Slightly cloudy Urine pH 9 (4.5-8.0) Urine Specific [place] 1.015 (1.005-1.035) Urine Protein 2+ (NEGATIVE) Urine Glucose (UA) Negative (NEGATIVE) Urine Ketones Negative (NEGATIVE) Urine Blood 2+ (NEGATIVE) Urine Nitrite Negative (NEGATIVE) Urine Bilirubin Negative (NEGATIVE) Urine Urobilinogen Normal MG/DL (0.0-1.0) Urine Leukocyte Esterase 3+ (NEGATIVE) Urine RBC 2-4 /HPF (0 - 0) Urine WBC 5-10 /HPF (0 - 0) Urine Squamous Epithelial Cells None /LPF (NONE/OCC) Urine Bacteria Moderate /HPF (NONE) Test 12/21/18 05:59 White Blood Count 5.9 K/UL (4.8-10.8) Red Blood Count 3.86 M/UL (4.70-6.10) Hemoglobin 10.7 G/DL (14.2-18.0) Hematocrit 34.2 % (42.0-52.0) Mean Corpuscular Volume 89 FL (80-99) Mean Corpuscular Hemoglobin 27.6 PG (27.0-31.0) Mean Corpuscular Hemoglobin Concent 31.2 G/DL (32.0-36.0) Red Cell Distribution Width 13.8 % (11.6-14.8) Platelet Count 250 K/UL (150-450) Mean Platelet Volume 7.2 FL (6.5-10.1) Neutrophils (%) (Auto) 61.0 % (45.0-75.0) Lymphocytes (%) (Auto) 27.5 % (20.0-45.0) Monocytes (%) (Auto) 9.5 % (1.0-10.0) Eosinophils (%) (Auto) 1.5 % (0.0-3.0) Basophils (%) (Auto) 0.5 % (0.0-2.0) Sodium Level 147 MMOL/L (136-145) Potassium Level 3.9 MMOL/L (3.5-5.1) Chloride Level 111 MMOL/L (98-107) Carbon Dioxide Level 28 MMOL/L (21-32) Anion Gap 8 mmol/L (5-15) Blood Urea Nitrogen 9 mg/dL (7-18) Creatinine 1.2 MG/DL (0.55-1.30) Estimat Glomerular Filtration Rate > 60 mL/min (>60) Glucose Level 125 MG/DL (74-106) Hemoglobin A1c 6.6 % (4.3-6.0) Uric Acid 6.1 MG/DL (2.6-7.2) Calcium Level 9.2 MG/DL (8.5-10.1) Phosphorus Level 4.3 MG/DL (2.5-4.9) Magnesium Level 2.0 MG/DL (1.8-2.4) Iron Level 58 ug/dL (50-175) Total Iron Binding Capacity 153 ug/dL (250-450) Percent Iron Saturation 38 % (15-50) Unsaturated Iron Binding 95 ug/dL (112-346) Ferritin 165 NG/ML (8-388) Total Bilirubin 0.3 MG/DL (0.2-1.0) Gamma Glutamyl Transpeptidase 26 U/L (5-85) Aspartate Amino Transf (AST/SGOT) 12 U/L (15-37) Alanine Aminotransferase (ALT/SGPT) 10 U/L (12-78) Alkaline Phosphatase 76 U/L (46-116) Total Creatine Kinase 78 U/L (26-308) Troponin I 0.018 ng/mL (0.000-0.056) C-Reactive Protein, Quantitative 2.6 mg/dL (0.00-0.90) Pro-B-Type Natriuretic Peptide 619 pg/mL (0-125) Total Protein 6.9 G/DL (6.4-8.2) Albumin 2.7 G/DL (3.4-5.0) Globulin 4.2 g/dL Albumin/Globulin Ratio 0.6 (1.0-2.7) Triglycerides Level 121 MG/DL (30-150) Cholesterol Level 153 MG/DL (< 200) LDL Cholesterol 86 mg/dL (<100) HDL Cholesterol 37 MG/DL (40-60) Cholesterol/HDL Ratio 4.1 (3.3-4.4) Vitamin B12 Level 504 PG/ML (193-986) Folate 21.0 NG/ML (8.6-58.9) Thyroid Stimulating Hormone (TSH) 0.809 uiU/mL (0.358-3.740) Height (Feet): 6 Height (Inches): 0.00 Weight (Pounds): 164 Objective PE: Vitals: reviewed General Appearance: NAD HEENT: normocephalic, atraumatic Neck: non-tender, normal alignment Respiratory/Chest: nromal breath sounds bilaterally Cardiovascular/Chest: normal peripheral pulses, normal rate Abdomen: normal bowel sounds, soft, nontender Extremities: normal range of motio Neuro: Follows two-step commands. Collin Mackey MD Dec 21, 2018 16:58
--- NOTE | 2018-12-21 17:30 | Consultation ---
DATE OF CONSULTATION: 12/21/2018 CARDIOLOGY CONSULTATION CONSULTING PHYSICIAN: Nelson Cain M.D. REFERRING PHYSICIAN: Cher Araiza M.D. REASON FOR CONSULTATION: Management of hypertension. HISTORY OF PRESENT ILLNESS: The patient is a 68-year-old gentleman with history of hypertension, diabetes, hyperlipidemia, dementia, and COPD who is an active smoker, was brought from nursing facility for increased shortness of breath and altered mental status. The patient was found very deeply asleep and was hypotensive with blood pressure at 84/40 and was difficult to awaken. The patient denied any chest pain, shortness of breath, nausea, vomiting, or diarrhea. The patient is a very poor historian. Most information was obtained by review of the patient's record and discussion with the patient's nurse. REVIEW OF SYSTEMS: Review of systems was negative other than what was mentioned in the history of present illness. PAST MEDICAL HISTORY: As mentioned above. FAMILY HISTORY: Noncontributory. SOCIAL HISTORY: Currently smoker. Denies alcohol or drug use. Lives in nursing facility. ALLERGIC: He is allergic to nifedipine and codeine. PHYSICAL EXAMINATION: VITAL SIGNS: Show blood pressure of 147/90, pulse 95, respirations 18, temperature 98.1. HEAD AND NECK: Showed no JVD. LUNGS: Clear. CARDIOVASCULAR: Regular S1 and S2 with no gallop or murmur. ABDOMEN: Soft. EXTREMITIES: No pitting edema. LABORATORY AND DIAGNOSTIC DATA: Labs show white count of 5.9, hematocrit 10.7, hematocrit 34.2, and platelet count of 250. Sodium is 147, potassium 3.9, BUN of 9, and creatinine 1.2, glucose of 125. Troponin is negative x2. BNP 619. EKG showed sinus rhythm with first-degree AV block and left anterior fascicular block. ASSESSMENT: 1. Status post hypotension. The patient received intravenous fluid. Blood pressure is improved and actually is quite high now. The patient is on hydralazine 75 mg every 8 hours and losartan 100 mg daily. We will get an echocardiogram to evaluate for ejection fraction and wall motion abnormalities. 2. 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 Repeat EKG and followup. 3. Right leg DVT. Further evaluation by Dr. Cueva. The patient is on Lovenox 80 mg subcutaneous daily. 4. Diabetes. 5. COPD. Thank you very much, Dr. Araiza, for allowing me to participate in the care of this patient. Please do not hesitate to contact me for any questions regarding my evaluation. Sincerely, Nelson Cain M.D. DR: Curly JOB#: [id number] CC:
[2018-12-21] MEDS: LORazepam Inj 2mg/ml 1ml IV SCH (18:00)
--- NOTE | 2018-12-21 18:45 | Progress Note ---
DATE: 12/21/2018 SUBJECTIVE: The patient is in bed, calm. He received medication. The patient was taken out of the restraints, easily agitated. Poor insight. He has not been taking medication orally. The patient is a poor historian. The patient appears to have alcohol dependence or abuse. MENTAL STATUS EXAMINATION: The patient is alert, confused, disoriented. Mood is agitated. Affect is flat. Thought process, there is a paucity of thought content. Thought content, no suicidal or homicidal ideation. ASSESSMENT: 1. Alcohol dependence. 2. Possible alcohol withdrawal. 3. Acute encephalopathy. PLAN: 1. We will place the patient on Ativan 1 mg IV every six hours standing. Change the Ativan p.o. to p.r.n. 2. Continue the Zyprexa. 3. We will continue to follow and readjust the medications. Daniel Delacruz M.D. DR: ADDIE JOB#: [id number] CC:
--- NOTE | 2018-12-21 19:33 | NUR ---
HAND-OFF: Report given to Ranjeet Jones.
--- NOTE | 2018-12-21 19:35 | NUR ---
NURSE NOTES: Received report from ALEXA Ann. Patient in bed asleep showing no signs of acute distress. Respiration even and no labored on room air. No sob noted. Pt. noted on bilateral soft wrist restraints, cap refill <3 sec, skin is intact, no redness, no skin discoloration noted. IV on Left hand 20g on 0.45NS @ 75cc/hr patent and intact. On condom cath, patent, intact and draining. Bed in lowest position, wheels locked, alarm on, and side rails up x3. All needs attended and met. Will continue plan of care.
[2018-12-21] MEDS: Tamsulosin 0.4mg cap ORAL SCH (21:00)
--- NOTE | 2018-12-21 21:20 | Surgery Progress Note ---
Surgery Progress Note Subjective Additional Comments no acute events labs noted exam unchanged. Objective Last 24 Hour Vital Signs Date Time Temp Pulse Resp B/P (MAP) Pulse Ox O2 Delivery O2 Flow Rate FiO2 12/21/18 20:12 96 Room Air 21 12/21/18 20:00 90 12/21/18 20:00 97.7 87 19 129/71 (90) 92 12/21/18 16:10 97.8 91 19 130/84 (99) 91 12/21/18 15:11 93 12/21/18 14:00 147/90 12/21/18 12:00 98.6 84 20 127/84 (98) 12/21/18 11:52 91 12/21/18 09:46 95 Room Air 12/21/18 09:45 Room Air 21 12/21/18 09:43 104 18 95 Room Air 21 12/21/18 08:29 Room Air 12/21/18 08:16 98.1 86 18 147/90 (109) 96 12/21/18 07:52 79 12/21/18 06:32 98.2 82 20 148/87 (107) 96 12/21/18 06:11 64 153/98 (116) 12/21/18 06:00 148/87 12/21/18 04:00 97.2 80 20 117/76 (90) 100 12/21/18 03:24 82 12/20/18 23:43 97.2 84 20 117/74 (88) 100 12/20/18 23:26 86 12/20/18 22:00 117/76 12/20/18 21:57 98.0 94 20 117/76 (90) 100 I&O Intake and Output 12/20/18 12/21/18 18:59 06:59 Intake Total 490 ml 140 ml Output Total 950 ml Balance 490 ml -810 ml Intake Oral 490 ml 140 ml Output Urine Total 950 ml # Voids 7 3 # Bowel Movements 5 Dressing: saturated Wound: other Drains: other Cardiovascular: RSR Respiratory: clear Abdomen: soft, present bowel sounds Extremities: other Laboratory Tests Test 12/21/18 05:59 White Blood Count 5.9 K/UL (4.8-10.8) Red Blood Count 3.86 M/UL (4.70-6.10) L Hemoglobin 10.7 G/DL (14.2-18.0) L Hematocrit 34.2 % (42.0-52.0) L Mean Corpuscular Volume 89 FL (80-99) Mean Corpuscular Hemoglobin 27.6 PG (27.0-31.0) Mean Corpuscular Hemoglobin Concent 31.2 G/DL (32.0-36.0) L Red Cell Distribution Width 13.8 % (11.6-14.8) Platelet Count 250 K/UL (150-450) Mean Platelet Volume 7.2 FL (6.5-10.1) Neutrophils (%) (Auto) 61.0 % (45.0-75.0) Lymphocytes (%) (Auto) 27.5 % (20.0-45.0) Monocytes (%) (Auto) 9.5 % (1.0-10.0) Eosinophils (%) (Auto) 1.5 % (0.0-3.0) Basophils (%) (Auto) 0.5 % (0.0-2.0) Sodium Level 147 MMOL/L (136-145) H Potassium Level 3.9 MMOL/L (3.5-5.1) Chloride Level 111 MMOL/L (98-107) H Carbon Dioxide Level 28 MMOL/L (21-32) Anion Gap 8 mmol/L (5-15) Blood Urea Nitrogen 9 mg/dL (7-18) Creatinine 1.2 MG/DL (0.55-1.30) Estimat Glomerular Filtration Rate > 60 mL/min (>60) Glucose Level 125 MG/DL (74-106) H Hemoglobin A1c 6.6 % (4.3-6.0) H Uric Acid 6.1 MG/DL (2.6-7.2) Calcium Level 9.2 MG/DL (8.5-10.1) Phosphorus Level 4.3 MG/DL (2.5-4.9) Magnesium Level 2.0 MG/DL (1.8-2.4) Iron Level 58 ug/dL (50-175) Total Iron Binding Capacity 153 ug/dL (250-450) L Percent Iron Saturation 38 % (15-50) Unsaturated Iron Binding 95 ug/dL (112-346) L Ferritin 165 NG/ML (8-388) Total Bilirubin 0.3 MG/DL (0.2-1.0) Gamma Glutamyl Transpeptidase 26 U/L (5-85) Aspartate Amino Transf (AST/SGOT) 12 U/L (15-37) L Alanine Aminotransferase (ALT/SGPT) 10 U/L (12-78) L Alkaline Phosphatase 76 U/L (46-116) Total Creatine Kinase 78 U/L (26-308) Troponin I 0.018 ng/mL (0.000-0.056) C-Reactive Protein, Quantitative 2.6 mg/dL (0.00-0.90) H Pro-B-Type Natriuretic Peptide 619 pg/mL (0-125) H Total Protein 6.9 G/DL (6.4-8.2) Albumin 2.7 G/DL (3.4-5.0) L Globulin 4.2 g/dL Albumin/Globulin Ratio 0.6 (1.0-2.7) L Triglycerides Level 121 MG/DL (30-150) Cholesterol Level 153 MG/DL (< 200) LDL Cholesterol 86 mg/dL (<100) HDL Cholesterol 37 MG/DL (40-60) L Cholesterol/HDL Ratio 4.1 (3.3-4.4) Carcinoembryonic Antigen Pending Vitamin B12 Level 504 PG/ML (193-986) Folate 21.0 NG/ML (8.6-58.9) Thyroid Stimulating Hormone (TSH) 0.809 uiU/mL (0.358-3.740) Cortisol AM Sample Pending Plan Problems: (1) Respiratory distress (2) Decubitus skin ulcer Assessment & Plan: Pt presented on admission with multiple pressure injuries. Partial thickness pressure injury noted to L gluteal cleft. Base of wound moist -viable. Edges flat and adherent to base of wound. Periwound has a Darker skin tone without induration.(L)1cm x (W)0.9cm. Cluster of Full thickness pressure injuries R buttocks.Wounds are 90% viable with 10% slough Periwound has darker skin tone without induration but tender when minimally palpated (L)5.5cm x (W)4.6cm. Small amt non-odorous serous exudate. Non-blanchable erythema both heels. Both heels are boggy but non-tender when palpated. Tx.Plan: Cleanse wounds R buttocks with Saline. Apply Triad Paste . Cover with Optifoam drsg every 3 days and prn. Apply Triad Paste to L buttocks. Cover with Optifoam drsg. Change every 3 days and prn. Apply Cavilon Skin Barrier to both heels. Cover each heel with Optifoam drsg. Change every 7 days and prn. APM/ANYA Mattress Overlay. Reposition at least every 2 hours or as tolerated. Off-load heels with pillow Patient able to move but unfortunately not fully compliant with care plan. Will try to reorient patient frequently to ensure he is moving and not laying on bony prominences. Furthermore will try to improve nutritional status to help with wound healing. (3) Hypotension (4) Failure to thrive (5) Hypoalbuminemia due to protein-calorie malnutrition Assessment & Plan: DAILY ESTIMATED NEEDS: Needs based on Wound, pulmonary 95.7kg adj 25-30 kcals/kg 7932-7328 total kcals 1.25-1.5 g protein/kg 120-144 g total protein 25-30 mL/kg 7500-0419 total fluid mLs NUTRITION DIAGNOSIS: Increase pro needs r/t wound healing as evidenced by BL buttocks partial thickness wounds. CURRENT DIET: [facility] / JUAN JOS[facility] PO DIET RECOMMENDATIONS: JUAN JOSÉ / [facility] diet (texture per [employer]) + DOUBLE PROTEIN ADDITIONAL RECOMMENDATIONS: 1) PER SNF--> > HT: 6'4" and WT: 236 lbs 2) A1C for eval 3) WOUND CARE: Add ALESSIA BID + VIT C 250mg daily 4) Possible FTT, rec close monitoring of PO intake/ Kcal count 5) Add GLUCERNA 1 tetra jules daily Zachariah Can Dec 21, 2018 21:20
--- NOTE | 2018-12-21 21:32 | General Progress Note ---
Assessment/Plan Problem List: (1) Decubitus skin ulcer ICD Codes: L89.90 - Pressure ulcer of unspecified site, unspecified stage SNOMED: 581681874 (2) Hypotension ICD Codes: I95.9 - Hypotension, unspecified SNOMED: 20235876 (3) Hypoalbuminemia due to protein-calorie malnutrition ICD Codes: E46 - Unspecified protein-calorie malnutrition SNOMED: 30370785371640 (4) UTI (urinary tract infection) ICD Codes: N39.0 - Urinary tract infection, site not specified SNOMED: 96036650 Status: progressing Assessment/Plan: agitated wound care psychosis hypotension improved Subjective ROS Limited/Unobtainable: Yes Allergies: Coded Allergies: CHEESE (Verified Allergy, Unknown, 08/06/17) NIFEDIPINE (Verified Allergy, Unknown, 08/06/17) Objective Last 24 Hour Vital Signs Date Time Temp Pulse Resp B/P (MAP) Pulse Ox O2 Delivery O2 Flow Rate FiO2 12/21/18 20:12 96 Room Air 21 12/21/18 20:00 90 12/21/18 20:00 97.7 87 19 129/71 (90) 92 12/21/18 16:10 97.8 91 19 130/84 (99) 91 12/21/18 15:11 93 12/21/18 14:00 147/90 12/21/18 12:00 98.6 84 20 127/84 (98) 12/21/18 11:52 91 12/21/18 09:46 95 Room Air 21 12/21/18 09:45 Room Air 21 12/21/18 09:43 104 18 95 Room Air 21 12/21/18 08:29 Room Air 12/21/18 08:16 98.1 86 18 147/90 (109) 96 12/21/18 07:52 79 12/21/18 06:32 98.2 82 20 148/87 (107) 96 12/21/18 06:11 64 153/98 (116) 12/21/18 06:00 148/87 12/21/18 04:00 97.2 80 20 117/76 (90) 100 12/21/18 03:24 82 12/20/18 23:43 97.2 84 20 117/74 (88) 100 12/20/18 23:26 86 12/20/18 22:00 117/76 12/20/18 21:57 98.0 94 20 117/76 (90) 100 Intake and Output 12/20/18 12/21/18 18:59 06:59 Intake Total 490 ml 140 ml Output Total 950 ml Balance 490 ml -810 ml Intake Oral 490 ml 140 ml Output Urine Total 950 ml # Voids 7 3 # Bowel Movements 5 Laboratory Tests 12/21/18 05:59: White Blood Count 5.9, Red Blood Count 3.86L, Hemoglobin 10.7L, Hematocrit 34.2L , Mean Corpuscular Volume 89, Mean Corpuscular Hemoglobin 27.6, Mean Corpuscular Hemoglobin Concent 31.2L, Red Cell Distribution Width 13.8, Platelet Count 250, Mean Platelet Volume 7.2, Neutrophils (%) (Auto) 61.0, Lymphocytes (%) (Auto) 27.5, Monocytes (%) (Auto) 9.5, Eosinophils (%) (Auto) 1.5, Basophils (%) (Auto) 0.5, Sodium Level 147H, Potassium Level 3.9, Chloride Level 111H, Carbon Dioxide Level 28, Anion Gap 8, Blood Urea Nitrogen 9, Creatinine 1.2, Estimat Glomerular Filtration Rate > 60, Glucose Level 125H, Hemoglobin A1c 6.6H, Uric Acid 6.1, Calcium Level 9.2, Phosphorus Level 4.3, Magnesium Level 2.0, Iron Level 58, Total Iron Binding Capacity 153L, Percent Iron Saturation 38, Unsaturated Iron Binding 95L, Ferritin 165, Total Bilirubin 0.3, Gamma Glutamyl Transpeptidase 26, Aspartate Amino Transf (AST/SGOT) 12L, Alanine Aminotransferase (ALT/SGPT) 10L, Alkaline Phosphatase 76, Total Creatine Kinase 78, Troponin I 0.018, C-Reactive Protein, Quantitative 2.6H, Pro -B-Type Natriuretic Peptide 619H, Total Protein 6.9, Albumin 2.7L, Globulin 4.2 , Albumin/Globulin Ratio 0.6L, Triglycerides Level 121, Cholesterol Level 153, LDL Cholesterol 86, HDL Cholesterol 37L, Cholesterol/HDL Ratio 4.1, Carcinoembryonic Antigen [Pending], Vitamin B12 Level 504, Folate 21.0, Thyroid Stimulating Hormone (TSH) 0.809, Cortisol AM Sample [Pending] Height (Feet): 6 Height (Inches): 0.00 Weight (Pounds): 164 Neck: supple Cardiovascular: normal rate Respiratory/Chest: lungs clear Abdomen: soft Cher Araiza MD Dec 21, 2018 21:32
[2018-12-22] VITALS: BP 131/66
[2018-12-22] MEDS: LORazepam Inj 2mg/ml 1ml IV SCH ×4 (00:11→17:00)
[2018-12-22 04:00] VITALS: BP 125/61
[2018-12-22] MEDS: HydrALAZINE 25mg tab ORAL SCH ×3 (06:00→22:00)
[2018-12-22] MEDS: NovoLOG Insulin Flexpen SUBQ SCH ×4 (06:05→21:51)
--- NOTE | 2018-12-22 06:06 | NUR ---
NURSE NOTES: Pt. refused scheduled 6:00-6:30am medication and combative. Will continue to monitor.
--- NOTE | 2018-12-22 07:23 | NUR ---
NURSE NOTES: Received report from ALEXA Pollack. Patient is resting in bed, in stable condition. Patient noted with bilateral soft wrist restraints for safety, patient is noted to be harm to others and is pulling on medical equipment. No s/sx of SOB, breathing is even and unlabored, on room air. Observed no presence of pain or discomfort at this time. Bed is in lowest position, brakes engaged. Call light is kept within easy reach. Will continue to monitor patient.
--- NOTE | 2018-12-22 07:29 | NUR ---
HAND-OFF: Report given to ALEXA Yanez.
[2018-12-22 07:33] LABS: BASOPHILS % (AUTO) 0.3 % (0.0-2.0); EOSINOPHILS % (AUTO) 1.5 % (0.0-3.0); HEMATOCRIT 33.6 % (42.0-52.0); HEMOGLOBIN 10.4 G/DL (14.2-18.0); LYMPHOCYTES % (AUTO) 25.8 % (20.0-45.0); MEAN CORPUSCULAR VOLUME 89 FL (80-99); MONOCYTES % (AUTO) 6.5 % (1.0-10.0); NEUTROPHILS % (AUTO) 65.8 % (45.0-75.0); PLATELET COUNT 253 K/UL (150-450); RED BLOOD COUNT 3.78 M/UL (4.70-6.10); RED CELL DISTRIBUTION WIDTH 14.1 % (11.6-14.8)
[2018-12-22 08:00] VITALS: BP 157/99
[2018-12-22 08:34] LABS: ALANINE AMINOTRANSFERASE 8 U/L (12-78); ALBUMIN 2.6 G/DL (3.4-5.0); ALBUMIN/GLOBULIN RATIO 0.7 (1.0-2.7); ALKALINE PHOSPHATASE 72 U/L (46-116); ANION GAP 7 mmol/L (5-15); ASPARTATE AMINO TRANSFERASE 14 U/L (15-37); BILIRUBIN,TOTAL 0.3 MG/DL (0.2-1.0); BLOOD UREA NITROGEN 11 mg/dL (7-18); CALCIUM 8.8 MG/DL (8.5-10.1); CARBON DIOXIDE 28 MMOL/L (21-32); CHLORIDE 111 MMOL/L (98-107); CREATININE 1.2 MG/DL (0.55-1.30); PHOSPHORUS 3.4 MG/DL (2.5-4.9); POTASSIUM 3.6 MMOL/L (3.5-5.1); SODIUM 146 MMOL/L (136-145)
[2018-12-22] MEDS: Aspirin EC 81mg tab ORAL SCH ×2 (09:00→09:24)
[2018-12-22] MEDS: Docusate 100mg cap ORAL SCH ×3 (09:00→17:01)
[2018-12-22] MEDS: Megace 400mg/10ml Susp ORAL SCH ×2 (09:00→09:23)
[2018-12-22] MEDS: Milk of Magnesia 30ml Ud ORAL SCH (09:00)
[2018-12-22] MEDS: Losartan 50mg tab ORAL SCH (09:24)
[2018-12-22] MEDS: Ascorbic Acid 500mg tab ORAL SCH ×2 (09:24→18:02)
[2018-12-22] MEDS: Enoxaparin 80mg Inj SUBQ SCH (09:25)
--- NOTE | 2018-12-22 10:39 | Cardiac Electrophysiology PN ---
Assessment/Plan Assessment/Plan 1. Status post hypotension on intravenous fluid. Blood pressure is high now and is on hydralazine 75 mg every 8 hours and losartan 100 mg daily. Echocardiogram pending 2. 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 3. Right leg DVT. Further evaluation by Dr. Cueva. The patient is on Lovenox 80 mg subcutaneous daily. 4. Diabetes. 5. COPD. WD RN Subjective Subjective No events. In SR on tele in restraints Objective Last 24 Hour Vital Signs Date Time Temp Pulse Resp B/P (MAP) Pulse Ox O2 Delivery O2 Flow Rate FiO2 12/22/18 09:24 157/99 12/22/18 09:00 Room Air 12/22/18 08:39 Room Air 21 12/22/18 08:39 Room Air 21 12/22/18 08:39 97 Room Air 21 12/22/18 08:00 90 12/22/18 08:00 97.6 91 19 157/99 (118) 95 12/22/18 06:00 125/61 12/22/18 04:00 98.3 86 19 125/61 (82) 98 12/22/18 04:00 68 12/22/18 00:00 76 12/22/18 00:00 97.4 91 19 131/66 (87) 96 12/21/18 22:00 129/71 12/21/18 21:00 Room Air 12/21/18 20:12 96 Room Air 21 12/21/18 20:00 90 12/21/18 20:00 97.7 87 19 129/71 (90) 92 12/21/18 16:10 97.8 91 19 130/84 (99) 91 12/21/18 15:11 93 12/21/18 14:00 147/90 12/21/18 12:00 98.6 84 20 127/84 (98) 12/21/18 11:52 91 Intake and Output 12/21/18 12/22/18 19:00 07:00 Intake Total 400 ml 675 ml Output Total 400 ml Balance 400 ml 275 ml IV Total 675 ml Other 400 ml Output Urine Total 400 ml Laboratory Tests Test 12/22/18 06:26 White Blood Count 7.0 K/UL (4.8-10.8) Red Blood Count 3.78 M/UL (4.70-6.10) L Hemoglobin 10.4 G/DL (14.2-18.0) L Hematocrit 33.6 % (42.0-52.0) L Mean Corpuscular Volume 89 FL (80-99) Mean Corpuscular Hemoglobin 27.6 PG (27.0-31.0) Mean Corpuscular Hemoglobin Concent 31.0 G/DL (32.0-36.0) L Red Cell Distribution Width 14.1 % (11.6-14.8) Platelet Count 253 K/UL (150-450) Mean Platelet Volume 7.7 FL (6.5-10.1) Neutrophils (%) (Auto) 65.8 % (45.0-75.0) Lymphocytes (%) (Auto) 25.8 % (20.0-45.0) Monocytes (%) (Auto) 6.5 % (1.0-10.0) Eosinophils (%) (Auto) 1.5 % (0.0-3.0) Basophils (%) (Auto) 0.3 % (0.0-2.0) Sodium Level 146 MMOL/L (136-145) H Potassium Level 3.6 MMOL/L (3.5-5.1) Chloride Level 111 MMOL/L (98-107) H Carbon Dioxide Level 28 MMOL/L (21-32) Anion Gap 7 mmol/L (5-15) Blood Urea Nitrogen 11 mg/dL (7-18) Creatinine 1.2 MG/DL (0.55-1.30) Estimat Glomerular Filtration Rate > 60 mL/min (>60) Glucose Level 104 MG/DL (74-106) Uric Acid 7.0 MG/DL (2.6-7.2) Calcium Level 8.8 MG/DL (8.5-10.1) Phosphorus Level 3.4 MG/DL (2.5-4.9) Magnesium Level 2.1 MG/DL (1.8-2.4) Total Bilirubin 0.3 MG/DL (0.2-1.0) Aspartate Amino Transf (AST/SGOT) 14 U/L (15-37) L Alanine Aminotransferase (ALT/SGPT) 8 U/L (12-78) L Alkaline Phosphatase 72 U/L (46-116) Troponin I 0.009 ng/mL (0.000-0.056) Total Protein 6.5 G/DL (6.4-8.2) Albumin 2.6 G/DL (3.4-5.0) L Globulin 3.9 g/dL Albumin/Globulin Ratio 0.7 (1.0-2.7) L Microbiology Date/Time Source Procedure Growth Status 12/20/18 16:00 Urine,Clean Catch Urine Culture - Final Proteus Mirabilis Complete Objective HEAD AND NECK: Showed no JVD. LUNGS: Clear. CARDIOVASCULAR: Regular S1 and S2 with no gallop or murmur. ABDOMEN: Soft. EXTREMITIES: No pitting edema. Nelson Cain MD Dec 22, 2018 10:39
--- NOTE | 2018-12-22 11:07 | Nephrology Progress Note ---
Assessment/Plan Problem List: (1) Hypotension Assessment: Fluctuating BP (2) Failure to thrive (3) Hypoalbuminemia due to protein-calorie malnutrition (4) Diabetes 1.5, managed as type 2 (5) UTI (urinary tract infection) Assessment Uncontrolled BP fluctuating HypoKalemia Diabetes, Acute metabolic encephalopathy dementia, COPD, GERD, CAD ?UTI Plan PO KCL Adjust BP meds UA Protonix BP and BS in check Per orders one liter IV 1/2NS given Med- surg Subjective ROS Limited/Unobtainable: No Constitutional: Reports: malaise Objective Objective Last 24 Hour Vital Signs Date Time Temp Pulse Resp B/P (MAP) Pulse Ox O2 Delivery O2 Flow Rate FiO2 12/22/18 09:24 157/99 12/22/18 09:00 Room Air 12/22/18 08:39 Room Air 21 12/22/18 08:39 Room Air 21 12/22/18 08:39 97 Room Air 21 12/22/18 08:00 90 12/22/18 08:00 97.6 91 19 157/99 (118) 95 12/22/18 06:00 125/61 12/22/18 04:00 98.3 86 19 125/61 (82) 98 12/22/18 04:00 68 12/22/18 00:00 76 12/22/18 00:00 97.4 91 19 131/66 (87) 96 12/21/18 22:00 129/71 12/21/18 21:00 Room Air 12/21/18 20:12 96 Room Air 21 12/21/18 20:00 90 12/21/18 20:00 97.7 87 19 129/71 (90) 92 12/21/18 16:10 97.8 91 19 130/84 (99) 91 12/21/18 15:11 93 12/21/18 14:00 147/90 12/21/18 12:00 98.6 84 20 127/84 (98) 12/21/18 11:52 91 Intake and Output 12/21/18 12/22/18 19:00 07:00 Intake Total 400 ml 675 ml Output Total 400 ml Balance 400 ml 275 ml IV Total 675 ml Other 400 ml Output Urine Total 400 ml Laboratory Tests 12/22/18 06:26: White Blood Count 7.0, Red Blood Count 3.78L, Hemoglobin 10.4L, Hematocrit 33.6L , Mean Corpuscular Volume 89, Mean Corpuscular Hemoglobin 27.6, Mean Corpuscular Hemoglobin Concent 31.0L, Red Cell Distribution Width 14.1, Platelet Count 253, Mean Platelet Volume 7.7, Neutrophils (%) (Auto) 65.8, Lymphocytes (%) (Auto) 25.8, Monocytes (%) (Auto) 6.5, Eosinophils (%) (Auto) 1.5, Basophils (%) (Auto) 0.3, Sodium Level 146H, Potassium Level 3.6, Chloride Level 111H, Carbon Dioxide Level 28, Anion Gap 7, Blood Urea Nitrogen 11, Creatinine 1.2, Estimat Glomerular Filtration Rate > 60, Glucose Level 104, Uric Acid 7.0, Calcium Level 8.8, Phosphorus Level 3.4, Magnesium Level 2.1, Total Bilirubin 0.3, Aspartate Amino Transf (AST/SGOT) 14L, Alanine Aminotransferase (ALT/SGPT) 8L, Alkaline Phosphatase 72, Troponin I 0.009, Total Protein 6.5, Albumin 2.6L, Globulin 3.9, Albumin/Globulin Ratio 0.7L Height (Feet): 6 Height (Inches): 0.00 Weight (Pounds): 164 General Appearance: no apparent distress Cardiovascular: normal rate, tachycardia - slight Abdomen: soft Objective no change Wenceslao Morgan MD Dec 22, 2018 11:07
[2018-12-22 12:00] VITALS: BP 150/87
--- NOTE | 2018-12-22 12:16 | Pulmonology Progress Note ---
Assessment/Plan Assessment/Plan Pulmonary Progress Note HPI Patient is a 68-year-old man with a history of hypertension, CAD, hyperlipidemia , diabetes, dementia, COPD (current smoker), GERD. He presents from his nursing facility for evaluation of shortness of breath, hypotension and AMS. According to transfer paperwork, the patient was found in a very deep sleep, hypotensive with blood pressures 84/40s and was difficult to awaken. Noted to have an acute right leg DVT, V/Q scan pending, CT head pending. Psychiatry following Patient noted to be in an agitated condition on admission, denies any chest pain, recent illness, shortness of breath, cough, leg swelling, abdominal pain, vomiting, diarrhea, rash, dysuria, flank pain or any other change in his health. He is a poor historian and does not appear to have significant insight into his medical conditions. He appears in no acute distress at this time. PMH: Diabetes, hypertension, hypertension, hyperlipidemia, dementia, COPD, GERD , CAD PSH: Patient states multiple but does not recall specific surgeries Allergies: nifedipine, cheese Social Hx: Current smoker, denies alcohol or drug use All Other Systems: negative except mentioned in HPI Physical Exam Vital Signs Noted General: More sedated today, no acute distress HEENT: NC/AT. EOMI. PERRLA. Moist mucous membranes. Neck: Supple, trachea midline Chest Wall: No tenderness, no deformity Cardiovascular: RRR. S1 and S2 normal. No murmur appreciated Resp: Normal work of breathing. No cough, wheezing or crackles appreciated Abdomen: Abdomen is soft, nondistended. Nontender Skin: Intact. No abrasions, laceration or rash over the exposed skin MSK: Normal tone and bulk. Moving all extremities. No obvious deformity. No lower extremity edema. Neuro: Awake and alert. Agitated. Moving all extremities. Follows two-step commands. Impression: DVT Await VQ scan COPD Diabetes Hypertension Hyperlipidemia Dementia GERD CAD Plan - O2 PRN - Continue Lovenox, dose per Pharmacy, Hematology following - IVF PRN - VQ scan - CT Head - Psychiatry following - HHN - SEARCH STRATEGIST meds - Psychiatry following - Monitor labs - PPX Laboratory Tests Noted Test 12/19/18 14:10 White Blood Count 5.7 K/UL (4.8-10.8) Red Blood Count 3.88 M/UL (4.70-6.10) L Hemoglobin 10.6 G/DL (14.2-18.0) L Hematocrit 34.6 % (42.0-52.0) L Mean Corpuscular Volume 89 FL (80-99) Mean Corpuscular Hemoglobin 27.3 PG (27.0-31.0) Mean Corpuscular Hemoglobin Concent 30.6 G/DL (32.0-36.0) L Red Cell Distribution Width 14.1 % (11.6-14.8) Platelet Count 256 K/UL (150-450) Mean Platelet Volume 7.9 FL (6.5-10.1) Neutrophils (%) (Auto) 64.3 % (45.0-75.0) Lymphocytes (%) (Auto) 25.2 % (20.0-45.0) Monocytes (%) (Auto) 7.6 % (1.0-10.0) Eosinophils (%) (Auto) 1.8 % (0.0-3.0) Basophils (%) (Auto) 1.0 % (0.0-2.0) Sodium Level 144 MMOL/L (136-145) Potassium Level 4.1 MMOL/L (3.5-5.1) Chloride Level 108 MMOL/L (98-107) H Carbon Dioxide Level 28 MMOL/L (21-32) Anion Gap 8 mmol/L (5-15) Blood Urea Nitrogen 15 mg/dL (7-18) Creatinine 1.2 MG/DL (0.55-1.30) Estimate Glomerular Filtration Rate > 60 mL/min (>60) Glucose Level 142 MG/DL (74-106) H Calcium Level 9.2 MG/DL (8.5-10.1) Magnesium Level 2.0 MG/DL (1.8-2.4) Total Bilirubin 0.3 MG/DL (0.2-1.0) Aspartate Amino Transferase (AST) 19 U/L (15-37) Alanine Aminotransferase (ALT) 10 U/L (12-78) L Alkaline Phosphatase 81 U/L (46-116) Total Creatine Kinase 123 U/L (26-308) Creatine Kinase MB 0.8 NG/ML (0.0-3.6) Creatine Kinase MB Relative Index 0.6 Troponin I 0.000 ng/mL (0.000-0.056) Pro-B-Type Natriuretic Peptide 322 pg/mL (0-125) H Total Protein 7.3 G/DL (6.4-8.2) Albumin 2.9 G/DL (3.4-5.0) L Globulin 4.4 g/dL Albumin/Globulin Ratio 0.7 (1.0-2.7) L EKG Time: 14:05 Rate: normal Rhythm: NSR Other Impression First-degree AV block with [place] interval 222 ms, left axis deviation, no acute ischemic changes CXR: no acute changes Subjective ROS Limited/Unobtainable: No Allergies: Coded Allergies: CHEESE (Verified Allergy, Unknown, 08/06/17) NIFEDIPINE (Verified Allergy, Unknown, 08/06/17) Objective Last 24 Hour Vital Signs Date Time Temp Pulse Resp B/P (MAP) Pulse Ox O2 Delivery O2 Flow Rate FiO2 12/22/18 09:24 157/99 12/22/18 09:00 Room Air 12/22/18 08:39 Room Air 21 12/22/18 08:39 Room Air 21 12/22/18 08:39 97 Room Air 21 12/22/18 08:00 90 12/22/18 08:00 97.6 91 19 157/99 (118) 95 12/22/18 06:00 125/61 12/22/18 04:00 98.3 86 19 125/61 (82) 98 12/22/18 04:00 68 12/22/18 00:00 76 12/22/18 00:00 97.4 91 19 131/66 (87) 96 12/21/18 22:00 129/71 12/21/18 21:00 Room Air 12/21/18 20:12 96 Room Air 21 12/21/18 20:00 90 12/21/18 20:00 97.7 87 19 129/71 (90) 92 12/21/18 16:10 97.8 91 19 130/84 (99) 91 12/21/18 15:11 93 12/21/18 14:00 147/90 Intake and Output 12/21/18 12/22/18 19:00 07:00 Intake Total 400 ml 675 ml Output Total 400 ml Balance 400 ml 275 ml IV Total 675 ml Other 400 ml Output Urine Total 400 ml Microbiology Date/Time Source Procedure Growth Status 12/20/18 16:00 Urine,Clean Catch Urine Culture - Final Proteus Mirabilis Complete Laboratory Tests 12/22/18 06:26: White Blood Count 7.0, Red Blood Count 3.78L, Hemoglobin 10.4L, Hematocrit 33.6L , Mean Corpuscular Volume 89, Mean Corpuscular Hemoglobin 27.6, Mean Corpuscular Hemoglobin Concent 31.0L, Red Cell Distribution Width 14.1, Platelet Count 253, Mean Platelet Volume 7.7, Neutrophils (%) (Auto) 65.8, Lymphocytes (%) (Auto) 25.8, Monocytes (%) (Auto) 6.5, Eosinophils (%) (Auto) 1.5, Basophils (%) (Auto) 0.3, Sodium Level 146H, Potassium Level 3.6, Chloride Level 111H, Carbon Dioxide Level 28, Anion Gap 7, Blood Urea Nitrogen 11, Creatinine 1.2, Estimat Glomerular Filtration Rate > 60, Glucose Level 104, Uric Acid 7.0, Calcium Level 8.8, Phosphorus Level 3.4, Magnesium Level 2.1, Total Bilirubin 0.3, Aspartate Amino Transf (AST/SGOT) 14L, Alanine Aminotransferase (ALT/SGPT) 8L, Alkaline Phosphatase 72, Troponin I 0.009, Total Protein 6.5, Albumin 2.6L, Globulin 3.9, Albumin/Globulin Ratio 0.7L Current Medications Medications (Trade) Dose Ordered Sig/Jamila Route PRN Reason Start Time Stop Time Status Last Admin Dose Admin Acetaminophen (Tylenol) 325 mg Q4H PRN RECTAL Mild Pain/Temp > 100.5 12/19/18 18:45 01/18/19 18:44 Acetaminophen (Tylenol) 650 mg Q4H PRN ORAL Mild Pain/Temp > 100.5 12/19/18 18:45 01/18/19 18:44 Albuterol/ Ipratropium (Albuterol/ Ipratropium) 3 ml Q4H PRN HHN Shortness of Breath 12/19/18 22:45 12/24/18 22:44 Ascorbic Acid (Vitamin C) 250 mg TWICE A DAY ORAL 12/21/18 09:00 01/20/19 08:59 12/22/18 09:24 Aspirin (Ecotrin) 81 mg DAILY ORAL 12/20/18 09:00 01/19/19 08:59 12/20/18 08:26 Clonidine HCl (Catapres Tab) 0.1 mg Q4H PRN ORAL SBP>170 12/20/18 13:15 01/18/19 18:44 Dextrose (Dextrose 50%) 25 ml Q30M PRN IV Hypoglycemia 12/19/18 19:00 01/18/19 18:59 Dextrose (Dextrose 50%) 50 ml Q30M PRN IV Hypoglycemia 12/19/18 19:00 01/18/19 18:59 Docusate Sodium (Colace) 100 mg THREE TIMES A DAY ORAL 12/20/18 13:00 01/19/19 12:59 Enoxaparin Sodium (Lovenox) 80 mg DAILY SUBQ 12/20/18 11:00 01/19/19 10:59 12/22/18 09:25 Escitalopram Oxalate (Lexapro) 10 mg DAILY ORAL 12/20/18 09:00 01/19/19 08:59 12/22/18 09:23 Gabapentin (Neurontin) 300 mg THREE TIMES A DAY ORAL 12/20/18 09:00 01/19/19 08:59 12/21/18 18:11 Haloperidol Lactate (Haldol) 5 mg Q6H PRN IM Agitation 12/21/18 14:30 01/20/19 14:29 Hydralazine HCl (Apresoline) 75 mg EVERY 8 HOURS ORAL 12/20/18 14:00 01/19/19 00:00 12/20/18 14:05 Insulin Aspart (NovoLOG) BEFORE MEALS AND HS SUBQ 12/19/18 21:00 01/18/19 20:59 12/21/18 21:50 Lorazepam (Ativan 2mg/ml 1ml) 1 mg Q6HR IV 12/21/18 18:00 12/28/18 17:59 12/22/18 11:47 Lorazepam (Ativan) 2 mg Q4H PRN ORAL agitation 12/21/18 15:45 12/28/18 15:44 Losartan Potassium (Cozaar) 100 mg DAILY ORAL 12/20/18 09:00 01/19/19 08:59 12/22/18 09:24 Magnesium Hydroxide (Mom) 30 ml DAILY ORAL 12/20/18 09:00 01/19/19 08:59 Megestrol Acetate (Megace) 400 mg TWICE A DAY ORAL 12/21/18 09:00 01/20/19 08:59 12/21/18 18:11 Montelukast Sodium (Singulair) 10 mg QPM ORAL 12/20/18 16:30 01/19/19 16:29 12/20/18 16:38 Olanzapine (ZyPREXA) 5 mg TID ORAL 12/20/18 18:00 01/19/19 17:59 12/22/18 09:24 Pantoprazole (Protonix) 40 mg EVERY 12 HOURS ORAL 12/20/18 21:00 01/19/19 20:59 12/20/18 21:55 Potassium Chloride (K-Dur) 20 meq TWICE A DAY ORAL 12/20/18 13:15 01/19/19 13:14 12/21/18 18:11 Tamsulosin HCl (Flomax) 0.4 mg BEDTIME ORAL 12/19/18 21:00 01/18/19 20:59 12/20/18 21:56 Tiotropium [place] (Spiriva Inhaler) 1 puff DAILY [facility] 12/20/18 09:00 01/19/19 08:59 Wayne Cueva MD Dec 22, 2018 12:16
--- NOTE | 2018-12-22 15:06 | Surgery Progress Note ---
Surgery Progress Note Subjective Additional Comments given ativan and more comfortable no n/v/f/c restless prior labs improved micro noted Objective Last 24 Hour Vital Signs Date Time Temp Pulse Resp B/P (MAP) Pulse Ox O2 Delivery O2 Flow Rate FiO2 12/22/18 14:17 150/87 12/22/18 12:00 97.9 90 19 150/87 (108) 94 12/22/18 12:00 90 12/22/18 09:24 157/99 12/22/18 09:00 Room Air 12/22/18 08:39 Room Air 21 12/22/18 08:39 Room Air 21 12/22/18 08:39 97 Room Air 21 12/22/18 08:00 90 12/22/18 08:00 97.6 91 19 157/99 (118) 95 12/22/18 06:00 125/61 12/22/18 04:00 98.3 86 19 125/61 (82) 98 12/22/18 04:00 68 12/22/18 00:00 76 12/22/18 00:00 97.4 91 19 131/66 (87) 96 12/21/18 22:00 129/71 12/21/18 21:00 Room Air 12/21/18 20:12 96 Room Air 21 12/21/18 20:00 90 12/21/18 20:00 97.7 87 19 129/71 (90) 92 12/21/18 16:10 97.8 91 19 130/84 (99) 91 12/21/18 15:11 93 I&O Intake and Output 12/21/18 12/22/18 18:59 06:59 Intake Total 400 ml 675 ml Output Total 400 ml Balance 400 ml 275 ml IV Total 675 ml Other 400 ml Output Urine Total 400 ml Dressing: dry Wound: clean Cardiovascular: RSR Respiratory: clear Abdomen: soft, non-tender, present bowel sounds, non-distended Extremities: no tenderness, no cyanosis Laboratory Tests Test 12/22/18 06:26 White Blood Count 7.0 K/UL (4.8-10.8) Red Blood Count 3.78 M/UL (4.70-6.10) L Hemoglobin 10.4 G/DL (14.2-18.0) L Hematocrit 33.6 % (42.0-52.0) L Mean Corpuscular Volume 89 FL (80-99) Mean Corpuscular Hemoglobin 27.6 PG (27.0-31.0) Mean Corpuscular Hemoglobin Concent 31.0 G/DL (32.0-36.0) L Red Cell Distribution Width 14.1 % (11.6-14.8) Platelet Count 253 K/UL (150-450) Mean Platelet Volume 7.7 FL (6.5-10.1) Neutrophils (%) (Auto) 65.8 % (45.0-75.0) Lymphocytes (%) (Auto) 25.8 % (20.0-45.0) Monocytes (%) (Auto) 6.5 % (1.0-10.0) Eosinophils (%) (Auto) 1.5 % (0.0-3.0) Basophils (%) (Auto) 0.3 % (0.0-2.0) Sodium Level 146 MMOL/L (136-145) H Potassium Level 3.6 MMOL/L (3.5-5.1) Chloride Level 111 MMOL/L (98-107) H Carbon Dioxide Level 28 MMOL/L (21-32) Anion Gap 7 mmol/L (5-15) Blood Urea Nitrogen 11 mg/dL (7-18) Creatinine 1.2 MG/DL (0.55-1.30) Estimat Glomerular Filtration Rate > 60 mL/min (>60) Glucose Level 104 MG/DL (74-106) Uric Acid 7.0 MG/DL (2.6-7.2) Calcium Level 8.8 MG/DL (8.5-10.1) Phosphorus Level 3.4 MG/DL (2.5-4.9) Magnesium Level 2.1 MG/DL (1.8-2.4) Total Bilirubin 0.3 MG/DL (0.2-1.0) Aspartate Amino Transf (AST/SGOT) 14 U/L (15-37) L Alanine Aminotransferase (ALT/SGPT) 8 U/L (12-78) L Alkaline Phosphatase 72 U/L (46-116) Troponin I 0.009 ng/mL (0.000-0.056) Total Protein 6.5 G/DL (6.4-8.2) Albumin 2.6 G/DL (3.4-5.0) L Globulin 3.9 g/dL Albumin/Globulin Ratio 0.7 (1.0-2.7) L Plan Problems: (1) Respiratory distress (2) Decubitus skin ulcer Assessment & Plan: Pt presented on admission with multiple pressure injuries. Partial thickness pressure injury noted to L gluteal cleft. Base of wound moist -viable. Edges flat and adherent to base of wound. Periwound has a Darker skin tone without induration.(L)1cm x (W)0.9cm. Cluster of Full thickness pressure injuries R buttocks.Wounds are 90% viable with 10% slough Periwound has darker skin tone without induration but tender when minimally palpated (L)5.5cm x (W)4.6cm. Small amt non-odorous serous exudate. Non-blanchable erythema both heels. Both heels are boggy but non-tender when palpated. Tx.Plan: Cleanse wounds R buttocks with Saline. Apply Triad Paste . Cover with Optifoam drsg every 3 days and prn. Apply Triad Paste to L buttocks. Cover with Optifoam drsg. Change every 3 days and prn. Apply Cavilon Skin Barrier to both heels. Cover each heel with Optifoam drsg. Change every 7 days and prn. APM/ANYA Mattress Overlay. Reposition at least every 2 hours or as tolerated. Off-load heels with pillow Patient able to move but unfortunately not fully compliant with care plan. Will try to reorient patient frequently to ensure he is moving and not laying on bony prominences. Furthermore will try to improve nutritional status to help with wound healing. (3) Hypotension (4) Failure to thrive (5) Hypoalbuminemia due to protein-calorie malnutrition Assessment & Plan: DAILY ESTIMATED NEEDS: Needs based on Wound, pulmonary 95.7kg adj 25-30 kcals/kg 4217-4160 total kcals 1.25-1.5 g protein/kg 120-144 g total protein 25-30 mL/kg 3061-9632 total fluid mLs NUTRITION DIAGNOSIS: Increase pro needs r/t wound healing as evidenced by BL buttocks partial thickness wounds. CURRENT DIET: [facility] / [facility] PO DIET RECOMMENDATIONS: JUAN JOS[facility] / [facility] diet (texture per [employer] SALES REPRESENTATIVE) + DOUBLE PROTEIN ADDITIONAL RECOMMENDATIONS: 1) PER SNF--> > HT: 6'4" and WT: 236 lbs 2) A1C for eval 3) WOUND CARE: Add ALESSIA BID + VIT C 250mg daily 4) Possible FTT, rec close monitoring of PO intake/ Kcal count 5) Add GLUCERNA 1 tetra jules daily Zachariah Can Dec 22, 2018 15:06
--- NOTE | 2018-12-22 15:20 | NUR ---
NURSE NOTES: Per Dr. Cueva inquired Head CT and NM VQ Lung scan. Informed Dr. Cueva that Head CT done, results unable to be uploaded onto [employer] (copy of report placed in paper chart). Per NM VQ Lung scan was unable to be done because patient was combative. Patient noted to be on restraints and with standing Ativan orders, called [facility], unable to reach personnel, called twice, left message. Patient is in room air, no s/sx of SOB, breathing is even and unlabored, observed no presence of pain. Will continue to monitor patient.
--- NOTE | 2018-12-22 15:35 | Hematology/Onc Progress Note ---
Assessment/Plan Assessment/Plan Assessment and Recs: # Acute DVT of the right lower extremity --> have reviewed imaging of venous duplex --> pulm is aware and v/q pending --> lovenox therapeutic dosing has been started # Anemia of chronic disease due to underlying chronic medical issues, multifactorial --> Anemia workup shows acd, ferritin >100 --> No evidence of hemolysis is noted, peripheral smear has been reviewed. --> Hgb goal >7. Transfuse prn. --> Epogen or iron at this time is not particularly indicated --> Medications have been reviewed --> hgb trend 10.3-->10.7-->10.2 --> low threshold for gi evaluation in case has occult + # Failure to thrive (FTT) - decreased bmi and low protein --> cea is 4.2 --> willf/u on q3d caloric counts --> may consider mirtazapine as appetite stimulant --> GI consult on a prn basis, as needed for endosc # Hypotension --> ivf as per renal, now better # Respiratory distress may be due to mild chf/vascular congestion --> diuresis as needed --> per pulm The timing of this note does not necessarily reflect the time of the patient was seen. GREATLY APPRECIATE CONSULTATION. Subjective Constitutional: Denies: no symptoms, chills, fever, malaise, weakness, other HEENT: Denies: no symptoms, eye pain, blurred vision, tearing, double vision, ear pain, ear discharge, nose pain, nose congestion, throat pain, throat swelling, mouth pain, mouth swelling, other Cardiovascular: Denies: no symptoms, chest pain, edema, irregular heart rate, lightheadedness, palpitations, syncope, other Respiratory: Denies: no symptoms, cough, shortness of breath, SOB with excertion, SOB at rest, sputum, wheezing, other Gastrointestinal/Abdominal: Denies: no symptoms, abdomen distended, abdominal pain, black stools, tarry stools, blood in stool, constipated, diarrhea, difficulty swallowing, nausea, poor appetite, poor fluid intake, rectal bleeding , vomiting, other Genitourinary: Denies: no symptoms, burning, discharge, frequency, flank pain, hematuria, incontinence, pain, urgency, other Neurologic/Psychiatric: Denies: no symptoms, anxiety, depressed, emotional problems, headache, numbness, paresthesia, pre-existing deficit, seizure, tingling, tremors, weakness, other Allergies: Coded Allergies: CHEESE (Verified Allergy, Unknown, 08/06/17) NIFEDIPINE (Verified Allergy, Unknown, 08/06/17) Subjective 12/21: was verbally abusive towards staff in pm, in the am, was on 2l nc, agitated 12/22: noted to have dvt and will contineu therapeutic doses, hgb holding Objective Objective Current Medications Medications (Trade) Dose Ordered Sig/Jamila Route PRN Reason Start Time Stop Time Status Last Admin Dose Admin Acetaminophen (Tylenol) 325 mg Q4H PRN RECTAL Mild Pain/Temp > 100.5 12/19/18 18:45 01/18/19 18:44 Acetaminophen (Tylenol) 650 mg Q4H PRN ORAL Mild Pain/Temp > 100.5 12/19/18 18:45 01/18/19 18:44 Albuterol/ Ipratropium (Albuterol/ Ipratropium) 3 ml Q4H PRN HHN Shortness of Breath 12/19/18 22:45 12/24/18 22:44 Ascorbic Acid (Vitamin C) 250 mg TWICE A DAY ORAL 12/21/18 09:00 01/20/19 08:59 12/22/18 09:24 Aspirin (Ecotrin) 81 mg DAILY ORAL 12/20/18 09:00 01/19/19 08:59 12/20/18 08:26 Clonidine HCl (Catapres Tab) 0.1 mg Q4H PRN ORAL SBP>170 12/20/18 13:15 01/18/19 18:44 Dextrose (Dextrose 50%) 25 ml Q30M PRN IV Hypoglycemia 12/19/18 19:00 01/18/19 18:59 Dextrose (Dextrose 50%) 50 ml Q30M PRN IV Hypoglycemia 12/19/18 19:00 01/18/19 18:59 Docusate Sodium (Colace) 100 mg THREE TIMES A DAY ORAL 12/20/18 13:00 01/19/19 12:59 Enoxaparin Sodium (Lovenox) 80 mg DAILY SUBQ 12/20/18 11:00 01/19/19 10:59 12/22/18 09:25 Escitalopram Oxalate (Lexapro) 10 mg DAILY ORAL 12/20/18 09:00 01/19/19 08:59 12/22/18 09:23 Gabapentin (Neurontin) 300 mg THREE TIMES A DAY ORAL 12/20/18 09:00 01/19/19 08:59 12/21/18 18:11 Haloperidol Lactate (Haldol) 5 mg Q6H PRN IM Agitation 12/21/18 14:30 01/20/19 14:29 Hydralazine HCl (Apresoline) 75 mg EVERY 8 HOURS ORAL 12/20/18 14:00 01/19/19 00:00 12/22/18 14:17 Insulin Aspart (NovoLOG) BEFORE MEALS AND HS SUBQ 12/19/18 21:00 01/18/19 20:59 12/21/18 21:50 Lorazepam (Ativan 2mg/ml 1ml) 1 mg Q6HR IV 12/21/18 18:00 12/28/18 17:59 12/22/18 11:47 Lorazepam (Ativan) 2 mg Q4H PRN ORAL agitation 12/21/18 15:45 12/28/18 15:44 Losartan Potassium (Cozaar) 100 mg DAILY ORAL 12/20/18 09:00 01/19/19 08:59 12/22/18 09:24 Magnesium Hydroxide (Mom) 30 ml DAILY ORAL 12/20/18 09:00 01/19/19 08:59 Megestrol Acetate (Megace) 400 mg TWICE A DAY ORAL 12/21/18 09:00 01/20/19 08:59 12/21/18 18:11 Montelukast Sodium (Singulair) 10 mg QPM ORAL 12/20/18 16:30 01/19/19 16:29 12/20/18 16:38 Olanzapine (ZyPREXA) 5 mg TID ORAL 12/20/18 18:00 01/19/19 17:59 12/22/18 09:24 Pantoprazole (Protonix) 40 mg EVERY 12 HOURS ORAL 12/20/18 21:00 01/19/19 20:59 12/20/18 21:55 Potassium Chloride (K-Dur) 20 meq TWICE A DAY ORAL 12/20/18 13:15 01/19/19 13:14 12/21/18 18:11 Tamsulosin HCl (Flomax) 0.4 mg BEDTIME ORAL 12/19/18 21:00 01/18/19 20:59 12/20/18 21:56 Tiotropium [place] (Spiriva Inhaler) 1 puff DAILY INH 12/20/18 09:00 01/19/19 08:59 Last 24 Hour Vital Signs Date Time Temp Pulse Resp B/P (MAP) Pulse Ox O2 Delivery O2 Flow Rate FiO2 12/22/18 14:17 150/87 12/22/18 12:00 97.9 90 19 150/87 (108) 94 12/22/18 12:00 90 12/22/18 09:24 157/99 12/22/18 09:00 Room Air 12/22/18 08:39 Room Air 21 12/22/18 08:39 Room Air 21 12/22/18 08:39 97 Room Air 21 12/22/18 08:00 90 12/22/18 08:00 97.6 91 19 157/99 (118) 95 12/22/18 06:00 125/61 12/22/18 04:00 98.3 86 19 125/61 (82) 98 12/22/18 04:00 68 12/22/18 00:00 76 12/22/18 00:00 97.4 91 19 131/66 (87) 96 12/21/18 22:00 129/71 12/21/18 21:00 Room Air 12/21/18 20:12 96 Room Air 21 12/21/18 20:00 90 12/21/18 20:00 97.7 87 19 129/71 (90) 92 12/21/18 16:10 97.8 91 19 130/84 (99) 91 12/21/18 15:11 93 12/21/18 14:00 147/90 12/21/18 12:00 98.6 84 20 127/84 (98) 12/21/18 11:52 91 12/21/18 09:46 95 Room Air 21 12/21/18 09:45 Room Air 21 12/21/18 09:43 104 18 95 Room Air 21 12/21/18 08:29 Room Air 12/21/18 08:16 98.1 86 18 147/90 (109) 96 12/21/18 07:52 79 12/21/18 06:32 98.2 82 20 148/87 (107) 96 12/21/18 06:11 64 153/98 (116) 12/21/18 06:00 148/87 12/21/18 04:00 97.2 80 20 117/76 (90) 100 12/21/18 03:24 82 12/20/18 23:43 97.2 84 20 117/74 (88) 100 12/20/18 23:26 86 12/20/18 22:00 117/76 12/20/18 21:57 98.0 94 20 117/76 (90) 100 12/20/18 21:00 Room Air 12/20/18 20:00 90 12/20/18 20:00 97.2 90 20 115/77 (90) 95 12/20/18 19:42 97 Room Air 12/20/18 16:00 105 12/20/18 16:00 99.1 94 20 149/91 (110) 97 Intake and Output 12/21/18 12/22/18 19:00 07:00 Intake Total 400 ml 675 ml Output Total 400 ml Balance 400 ml 275 ml IV Total 675 ml Other 400 ml Output Urine Total 400 ml Labs Test 12/20/18 00:28 12/20/18 06:00 12/20/18 16:00 12/21/18 05:59 Arterial Blood pH 7.418 (7.350-7.450) Arterial Blood Partial Pressure CO2 41.3 mmHg (35.0-45.0) Arterial Blood Partial Pressure O2 107.7 mmHg (75.0-100.0) Arterial Blood HCO3 26.1 mmol/L (22.0-26.0) Arterial Blood Oxygen Saturation 97.7 % (95-100) Arterial Blood Base Excess 1.4 (-2-2) Nate Test Positive White Blood Count 6.6 K/UL (4.8-10.8) 5.9 K/UL (4.8-10.8) Red Blood Count 3.73 M/UL (4.70-6.10) 3.86 M/UL (4.70-6.10) Hemoglobin 10.3 G/DL (14.2-18.0) 10.7 G/DL (14.2-18.0) Hematocrit 32.7 % (42.0-52.0) 34.2 % (42.0-52.0) Mean Corpuscular Volume 88 FL (80-99) 89 FL (80-99) Mean Corpuscular Hemoglobin 27.5 PG (27.0-31.0) 27.6 PG (27.0-31.0) Mean Corpuscular Hemoglobin Concent 31.3 G/DL (32.0-36.0) 31.2 G/DL (32.0-36.0) Red Cell Distribution Width 14.9 % (11.6-14.8) 13.8 % (11.6-14.8) Platelet Count 256 K/UL (150-450) 250 K/UL (150-450) Mean Platelet Volume 7.1 FL (6.5-10.1) 7.2 FL (6.5-10.1) Neutrophils (%) (Auto) 64.0 % (45.0-75.0) 61.0 % (45.0-75.0) Lymphocytes (%) (Auto) 25.7 % (20.0-45.0) 27.5 % (20.0-45.0) Monocytes (%) (Auto) 7.7 % (1.0-10.0) 9.5 % (1.0-10.0) Eosinophils (%) (Auto) 1.7 % (0.0-3.0) 1.5 % (0.0-3.0) Basophils (%) (Auto) 0.9 % (0.0-2.0) 0.5 % (0.0-2.0) Sodium Level 142 MMOL/L (136-145) 147 MMOL/L (136-145) Potassium Level 3.4 MMOL/L (3.5-5.1) 3.9 MMOL/L (3.5-5.1) Chloride Level 108 MMOL/L (98-107) 111 MMOL/L (98-107) Carbon Dioxide Level 29 MMOL/L (21-32) 28 MMOL/L (21-32) Anion Gap 5 mmol/L (5-15) 8 mmol/L (5-15) Blood Urea Nitrogen 11 mg/dL (7-18) 9 mg/dL (7-18) Creatinine 1.2 MG/DL (0.55-1.30) 1.2 MG/DL (0.55-1.30) Estimat Glomerular Filtration Rate > 60 mL/min (>60) > 60 mL/min (>60) Glucose Level 98 MG/DL (74-106) 125 MG/DL (74-106) Calcium Level 9.2 MG/DL (8.5-10.1) 9.2 MG/DL (8.5-10.1) Total Bilirubin 0.3 MG/DL (0.2-1.0) 0.3 MG/DL (0.2-1.0) Aspartate Amino Transf (AST/SGOT) 13 U/L (15-37) 12 U/L (15-37) Alanine Aminotransferase (ALT/SGPT) 11 U/L (12-78) 10 U/L (12-78) Alkaline Phosphatase 75 U/L (46-116) 76 U/L (46-116) Total Protein 6.9 G/DL (6.4-8.2) 6.9 G/DL (6.4-8.2) Albumin 2.7 G/DL (3.4-5.0) 2.7 G/DL (3.4-5.0) Globulin 4.2 g/dL 4.2 g/dL Albumin/Globulin Ratio 0.6 (1.0-2.7) 0.6 (1.0-2.7) Urine Color Pale yellow Urine Appearance Slightly cloudy Urine pH 9 (4.5-8.0) Urine Specific [place] 1.015 (1.005-1.035) Urine Protein 2+ (NEGATIVE) Urine Glucose (UA) Negative (NEGATIVE) Urine Ketones Negative (NEGATIVE) Urine Blood 2+ (NEGATIVE) Urine Nitrite Negative (NEGATIVE) Urine Bilirubin Negative (NEGATIVE) Urine Urobilinogen Normal MG/DL (0.0-1.0) Urine Leukocyte Esterase 3+ (NEGATIVE) Urine RBC 2-4 /HPF (0 - 0) Urine WBC 5-10 /HPF (0 - 0) Urine Squamous Epithelial Cells None /LPF (NONE/OCC) Urine Bacteria Moderate /HPF (NONE) Hemoglobin A1c 6.6 % (4.3-6.0) Uric Acid 6.1 MG/DL (2.6-7.2) Phosphorus Level 4.3 MG/DL (2.5-4.9) Magnesium Level 2.0 MG/DL (1.8-2.4) Iron Level 58 ug/dL (50-175) Total Iron Binding Capacity 153 ug/dL (250-450) Percent Iron Saturation 38 % (15-50) Unsaturated Iron Binding 95 ug/dL (112-346) Ferritin 165 NG/ML (8-388) Gamma Glutamyl Transpeptidase 26 U/L (5-85) Total Creatine Kinase 78 U/L (26-308) Troponin I 0.018 ng/mL (0.000-0.056) C-Reactive Protein, Quantitative 2.6 mg/dL (0.00-0.90) Pro-B-Type Natriuretic Peptide 619 pg/mL (0-125) Triglycerides Level 121 MG/DL (30-150) Cholesterol Level 153 MG/DL (< 200) LDL Cholesterol 86 mg/dL (<100) HDL Cholesterol 37 MG/DL (40-60) Cholesterol/HDL Ratio 4.1 (3.3-4.4) Carcinoembryonic Antigen 4.2 ng/mL (0.0-4.7) Vitamin B12 Level 504 PG/ML (193-986) Folate 21.0 NG/ML (8.6-58.9) Thyroid Stimulating Hormone (TSH) 0.809 uiU/mL (0.358-3.740) Test 12/22/18 06:26 White Blood Count 7.0 K/UL (4.8-10.8) Red Blood Count 3.78 M/UL (4.70-6.10) Hemoglobin 10.4 G/DL (14.2-18.0) Hematocrit 33.6 % (42.0-52.0) Mean Corpuscular Volume 89 FL (80-99) Mean Corpuscular Hemoglobin 27.6 PG (27.0-31.0) Mean Corpuscular Hemoglobin Concent 31.0 G/DL (32.0-36.0) Red Cell Distribution Width 14.1 % (11.6-14.8) Platelet Count 253 K/UL (150-450) Mean Platelet Volume 7.7 FL (6.5-10.1) Neutrophils (%) (Auto) 65.8 % (45.0-75.0) Lymphocytes (%) (Auto) 25.8 % (20.0-45.0) Monocytes (%) (Auto) 6.5 % (1.0-10.0) Eosinophils (%) (Auto) 1.5 % (0.0-3.0) Basophils (%) (Auto) 0.3 % (0.0-2.0) Sodium Level 146 MMOL/L (136-145) Potassium Level 3.6 MMOL/L (3.5-5.1) Chloride Level 111 MMOL/L (98-107) Carbon Dioxide Level 28 MMOL/L (21-32) Anion Gap 7 mmol/L (5-15) Blood Urea Nitrogen 11 mg/dL (7-18) Creatinine 1.2 MG/DL (0.55-1.30) Estimat Glomerular Filtration Rate > 60 mL/min (>60) Glucose Level 104 MG/DL (74-106) Uric Acid 7.0 MG/DL (2.6-7.2) Calcium Level 8.8 MG/DL (8.5-10.1) Phosphorus Level 3.4 MG/DL (2.5-4.9) Magnesium Level 2.1 MG/DL (1.8-2.4) Total Bilirubin 0.3 MG/DL (0.2-1.0) Aspartate Amino Transf (AST/SGOT) 14 U/L (15-37) Alanine Aminotransferase (ALT/SGPT) 8 U/L (12-78) Alkaline Phosphatase 72 U/L (46-116) Troponin I 0.009 ng/mL (0.000-0.056) Total Protein 6.5 G/DL (6.4-8.2) Albumin 2.6 G/DL (3.4-5.0) Globulin 3.9 g/dL Albumin/Globulin Ratio 0.7 (1.0-2.7) Height (Feet): 6 Height (Inches): 0.00 Weight (Pounds): 164 Objective PE: Vitals: reviewed General Appearance: NAD HEENT: normocephalic, atraumatic Neck: non-tender, normal alignment Respiratory/Chest: nromal breath sounds bilaterally Cardiovascular/Chest: normal peripheral pulses, normal rate Abdomen: normal bowel sounds, soft, nontender Extremities: normal range of motio Neuro: Follows two-step commands. Collin Mackey MD Dec 22, 2018 15:35
[2018-12-22 15:47] VITALS: BP 130/85
[2018-12-22] MEDS ORDERED: Warfarin Sodium 5mg ORAL SCH (18:00)
[2018-12-22] MEDS: Montelukast 10mg tablet ORAL SCH (18:02)
--- NOTE | 2018-12-22 19:08 | NUR ---
HAND-OFF: Report given to ALEXA Pollack.
--- NOTE | 2018-12-22 19:20 | NUR ---
NURSE NOTES: Received report from ALEXA Yanez. Patient in bed asleep showing no signs of acute distress. Respiration even and no labored on room air. No sob noted. Pt. noted on bilateral soft wrist restraints for safety. Patient is combative, observed pulling out device and trying to get out of bed unassisted. Cap refill <3 sec, skin is intact, no redness, no skin discoloration noted. IV on Left hand 20g on 0.45NS @ 75cc/hr patent and intact. On condom cath, patent, intact and draining. Bed in lowest position, wheels locked, alarm on, and side rails up x3. All needs attended and met. Will continue plan of care.
[2018-12-22 20:00] VITALS: BP 118/70
[2018-12-22] MEDS: Haloperidol 5mg/ml Inj IM PRN (20:12)
[2018-12-22] MEDS: Tamsulosin 0.4mg cap ORAL SCH (20:18)
--- NOTE | 2018-12-22 22:39 | General Progress Note ---
Assessment/Plan Problem List: (1) Decubitus skin ulcer ICD Codes: L89.90 - Pressure ulcer of unspecified site, unspecified stage SNOMED: 859843721 (2) Hypotension ICD Codes: I95.9 - Hypotension, unspecified SNOMED: 53169589 (3) Hypoalbuminemia due to protein-calorie malnutrition ICD Codes: E46 - Unspecified protein-calorie malnutrition SNOMED: 13668175867184 (4) UTI (urinary tract infection) ICD Codes: N39.0 - Urinary tract infection, site not specified SNOMED: 73711463 Status: progressing Assessment/Plan: no acute events poor historian wound care per wound team psych patient Subjective ROS Limited/Unobtainable: Yes Allergies: Coded Allergies: CHEESE (Verified Allergy, Unknown, 08/06/17) NIFEDIPINE (Verified Allergy, Unknown, 08/06/17) Objective Last 24 Hour Vital Signs Date Time Temp Pulse Resp B/P (MAP) Pulse Ox O2 Delivery O2 Flow Rate FiO2 12/22/18 22:00 118/70 12/22/18 21:00 Room Air 12/22/18 20:00 97.4 75 18 118/70 (86) 95 12/22/18 20:00 89 12/22/18 16:00 79 12/22/18 15:47 98.1 80 19 130/85 (100) 93 12/22/18 14:17 150/87 12/22/18 12:00 97.9 90 19 150/87 (108) 94 12/22/18 12:00 90 12/22/18 09:24 157/99 12/22/18 09:00 Room Air 12/22/18 08:39 Room Air 21 12/22/18 08:39 Room Air 21 12/22/18 08:39 97 Room Air 21 12/22/18 08:00 90 12/22/18 08:00 97.6 91 19 157/99 (118) 95 12/22/18 06:00 125/61 12/22/18 04:00 98.3 86 19 125/61 (82) 98 12/22/18 04:00 68 12/22/18 00:00 76 12/22/18 00:00 97.4 91 19 131/66 (87) 96 Intake and Output 12/21/18 12/22/18 18:59 06:59 Intake Total 400 ml 675 ml Output Total 400 ml Balance 400 ml 275 ml IV Total 675 ml Other 400 ml Output Urine Total 400 ml Laboratory Tests 12/22/18 06:26: White Blood Count 7.0, Red Blood Count 3.78L, Hemoglobin 10.4L, Hematocrit 33.6L , Mean Corpuscular Volume 89, Mean Corpuscular Hemoglobin 27.6, Mean Corpuscular Hemoglobin Concent 31.0L, Red Cell Distribution Width 14.1, Platelet Count 253, Mean Platelet Volume 7.7, Neutrophils (%) (Auto) 65.8, Lymphocytes (%) (Auto) 25.8, Monocytes (%) (Auto) 6.5, Eosinophils (%) (Auto) 1.5, Basophils (%) (Auto) 0.3, Sodium Level 146H, Potassium Level 3.6, Chloride Level 111H, Carbon Dioxide Level 28, Anion Gap 7, Blood Urea Nitrogen 11, Creatinine 1.2, Estimat Glomerular Filtration Rate > 60, Glucose Level 104, Uric Acid 7.0, Calcium Level 8.8, Phosphorus Level 3.4, Magnesium Level 2.1, Total Bilirubin 0.3, Aspartate Amino Transf (AST/SGOT) 14L, Alanine Aminotransferase (ALT/SGPT) 8L, Alkaline Phosphatase 72, Troponin I 0.009, Total Protein 6.5, Albumin 2.6L, Globulin 3.9, Albumin/Globulin Ratio 0.7L 12/22/18 15:50: Prothrombin Time 10.9, Prothromb Time International Ratio 1.0 Height (Feet): 6 Height (Inches): 0.00 Weight (Pounds): 164 Neck: supple Cardiovascular: normal rate Respiratory/Chest: lungs clear Abdomen: soft Cher Araiza MD Dec 22, 2018 22:39
[2018-12-23] VITALS: BP 143/96
[2018-12-23] MEDS: LORazepam Inj 2mg/ml 1ml IV SCH ×2 (00:19→06:04)
[2018-12-23] MEDS: Haloperidol 5mg/ml Inj IM PRN (03:21)
[2018-12-23 04:00] VITALS: BP 131/92
[2018-12-23] MEDS: HydrALAZINE 25mg tab ORAL SCH (06:05)
[2018-12-23] MEDS: NovoLOG Insulin Flexpen SUBQ SCH (06:30)
--- NOTE | 2018-12-23 07:31 | NUR ---
HAND-OFF: Report given to ALEXA Gallego. Addendum: 12/23/18 at 0733 by RAGINI IVEY RN HAND-OFF: Report given to ALEXA Lainez and ALEXA Ibarra.
[2018-12-23 08:00] VITALS: BP 166/95
--- NOTE | 2018-12-23 08:07 | NUR ---
Regarding V/Q Scan: Re-assessed pt for possibility of doing V/Q Scan. Pt is still uncooperative and unable to do scan at this time.
--- NOTE | 2018-12-23 08:14 | Diagnostic Imaging Report ---
Indication: Altered mental status Technique: Continuous helical CT scanning of the head was performed without intravenous contrast material. Axial and coronal 5 mm sections were generated. Radiation dose was minimized using automated exposure control Dose: Total Dose Length Product - DLP 982.[address] Dose Index - CTDIvol(s) 70.38 mGy. Comparison: None available FINDINGS: Study is degraded by motion artifact, limiting evaluation of the skull base and posterior fossa. There is no acute intracranial hemorrhage, mass effect or cortical edema. There is encephalomalacia involving the left temporal lobe and left frontal lobe. There is associated ex vacuo dilatation of the left lateral ventricle. There are patchy subcortical and periventricular white matter hypodensities consistent with ischemic chronic microvascular disease. The ventricles, cisterns and sulci are normal for age and degree of cerebral volume loss. Visualized mastoid air cells and paranasal sinuses are unremarkable. No focal lesions of the bony calvarium or soft tissues of the scalp are seen. IMPRESSION: 1. No evidence of acute intracranial hemorrhage, mass effect or cortical edema, although examination is limited due to motion artifact. MRI may be obtained for more sensitive evaluation as clinically indicated. 2. 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 The CT scanner at [facility] is accredited by the [employer] and the scans are performed using protocols designed to limit radiation exposure to as low as reasonably achievable to attain images of sufficient resolution adequate for diagnostic evaluation.
--- NOTE | 2018-12-23 08:29 | NUR ---
NURSE NOTES: Patient transferred from Telemetry for continuity of care. Reports received from Chris. Recinos reviewed and accounted for. Patient on bilateral soft wrist restraints. HOB is elevated. Side rails are up, bed is locked and in lowest position. Patient placed near nurse's station. Will continue to monitor.
--- NOTE | 2018-12-23 08:33 | NUR ---
NURSE NOTES: patient asleep in bed , breathing easily on RA. VSS. NSR at 90 on tele monitor. Soft wrist restraints in place -- bilat. hands warm with good cms and distal function noted. Lhand IV flushed easily. No overt signs of pain or discomfort. Verbal report given to ALEXA Tesfaye for transfer to [facility] with chart, charger tester notes, insulin pen, labels, and patient belongings.
[2018-12-23 08:43] VITALS: BP 166/106
[2018-12-23] MEDS ORDERED: LORazepam 1mg tab ORAL PRN (09:00)
[2018-12-23] MEDS ORDERED: Ascorbic Acid 500mg tab ORAL SCH (09:00)
[2018-12-23] MEDS ORDERED: Milk of Magnesia 30ml Ud ORAL SCH (09:00)
[2018-12-23] MEDS ORDERED: Haloperidol 5mg/ml Inj IM PRN (09:00)
[2018-12-23] MEDS ORDERED: Aspirin EC 81mg tab ORAL SCH (09:00)
[2018-12-23] MEDS ORDERED: Docusate 100mg cap ORAL SCH (09:00)
[2018-12-23] MEDS ORDERED: Albuterol/Ipratropium 3ml neb HHN PRN (09:00)
[2018-12-23] MEDS ORDERED: LOVENOX10 M2 SUBQ (09:07)
[2018-12-23] MEDS ORDERED: Losartan 50mg tab ORAL SCH (09:15)
[2018-12-23] MEDS ORDERED: Enoxaparin 80mg Inj SUBQ SCH (10:00)
[2018-12-23] MEDS ORDERED: 1/2 NS 1000ml IV ONE (10:46)
[2018-12-23] MEDS ORDERED: ZYPREXA5 MG ORAL (11:26)
[2018-12-23] MEDS ORDERED: NovoLOG Insulin Flexpen SUBQ SCH (11:30)
[2018-12-23 12:00] VITALS: BP 136/86
[2018-12-23] MEDS ORDERED: LORazepam Inj 2mg/ml 1ml IV SCH (12:00)
--- NOTE | 2018-12-23 12:17 | NUR ---
DISCHARGE PLANNING DISCHARGE ORDER NOTED Patient has been accepted back to; [facility] [address] [place] [address] Bed:209-A Skilled [phone] for Nurse to Nurse report [facility] ETA for transportation: 12:00
--- NOTE | 2018-12-23 12:55 | NUR ---
NURSE NOTES: Patient discharged to [facility] via ambulance. Belongings given to ambulance personnel. IV removed. Discharge packet given to ambulance personnel. Report given to facility by dye machine tender. Patient stable upon discharge.
[2018-12-23] MEDS ORDERED: HydrALAZINE 25mg tab ORAL SCH (14:00)
--- NOTE | 2018-12-23 14:36 | Nephrology Progress Note ---
Assessment/Plan Problem List: (1) Hypotension Assessment: Fluctuating BP (2) Failure to thrive (3) Hypoalbuminemia due to protein-calorie malnutrition (4) Diabetes 1.5, managed as type 2 (5) UTI (urinary tract infection) Assessment Uncontrolled BP fluctuating HypoKalemia Diabetes, Acute metabolic encephalopathy dementia, COPD, GERD, CAD ?UTI Plan PO KCL Adjust BP meds UA Protonix BP and BS in check Per orders one liter IV 1/2NS given Med- surg Subjective ROS Limited/Unobtainable: No Interval Events/Complaints seen at 9.30 am- late note entery Objective Objective Last 24 Hour Vital Signs Date Time Temp Pulse Resp B/P (MAP) Pulse Ox O2 Delivery O2 Flow Rate FiO2 12/23/18 12:00 98.6 96 18 136/86 (103) 98 12/23/18 09:39 166/106 12/23/18 08:43 98.2 98 18 166/106 (126) 98 12/23/18 08:28 90 18 96 Room Air 21 12/23/18 08:27 89 17 96 Room Air 21 12/23/18 08:00 Room Air 12/23/18 08:00 96.3 88 18 166/95 (118) 97 12/23/18 06:05 131/92 12/23/18 04:00 97.7 88 18 131/92 (105) 97 12/23/18 04:00 90 12/23/18 00:00 82 12/23/18 00:00 97.7 100 18 143/96 (112) 97 12/22/18 22:00 118/70 12/22/18 21:00 Room Air 12/22/18 20:00 97.4 75 18 118/70 (86) 95 12/22/18 20:00 89 12/22/18 16:00 79 12/22/18 15:47 98.1 80 19 130/85 (100) 93 Intake and Output 12/22/18 12/23/18 19:00 07:00 Intake Total 480 ml Output Total 550 ml Balance -70 ml Intake Oral 480 ml Output Urine Total 550 ml # Voids 2 Laboratory Tests 12/22/18 15:50: Prothrombin Time 10.9, Prothromb Time International Ratio 1.0 12/23/18 06:22: Prothrombin Time 10.7, Prothromb Time International Ratio 1.0 Height (Feet): 6 Height (Inches): 0.00 Weight (Pounds): 164 General Appearance: no apparent distress Cardiovascular: tachycardia Respiratory/Chest: decreased breath sounds Abdomen: distended Objective no change Wenceslao Morgan MD Dec 23, 2018 14:36
--- NOTE | 2018-12-23 15:18 | Hematology/Onc Progress Note ---
Assessment/Plan Assessment/Plan Assessment and Recs: # Acute DVT of the right lower extremity --> have reviewed imaging of venous duplex --> pulm is aware and v/q pending --> lovenox therapeutic dosing has been started --> Coumadin once discharged and will trend inr 2-3 # Anemia of chronic disease due to underlying chronic medical issues, multifactorial --> Anemia workup shows acd, ferritin >100 --> No evidence of hemolysis is noted, peripheral smear has been reviewed. --> Hgb goal >7. Transfuse prn. --> Epogen or iron at this time is not particularly indicated --> Medications have been reviewed --> hgb trend 10.3-->10.7-->10.2-->10.4 --> low threshold for gi evaluation in case has occult + # Failure to thrive (FTT) - decreased bmi and low protein --> cea is 4.2 --> will f/u on q3d caloric counts --> may consider mirtazapine as appetite stimulant --> GI consult on a prn basis, as needed for endosc # Hypotension --> ivf as per renal, now better # Respiratory distress may be due to mild chf/vascular congestion --> diuresis as needed --> per pulm The timing of this note does not necessarily reflect the time of the patient was seen. GREATLY APPRECIATE CONSULTATION. Subjective Constitutional: Denies: no symptoms, chills, fever, malaise, weakness, other HEENT: Denies: no symptoms, eye pain, blurred vision, tearing, double vision, ear pain, ear discharge, nose pain, nose congestion, throat pain, throat swelling, mouth pain, mouth swelling, other Cardiovascular: Denies: no symptoms, chest pain, edema, irregular heart rate, lightheadedness, palpitations, syncope, other Gastrointestinal/Abdominal: Denies: no symptoms, abdomen distended, abdominal pain, black stools, tarry stools, blood in stool, constipated, diarrhea, difficulty swallowing, nausea, poor appetite, poor fluid intake, rectal bleeding , vomiting, other Genitourinary: Denies: no symptoms, burning, discharge, frequency, flank pain, hematuria, incontinence, pain, urgency, other Endocrine: Denies: no symptoms, excessive sweating, flushing, intolerance to cold, intolerance to heat, increased hunger, increased thirst, increased urine, unexplained weight gain, unexplained weight loss, other Allergies: Coded Allergies: CHEESE (Verified Allergy, Unknown, 08/06/17) NIFEDIPINE (Verified Allergy, Unknown, 08/06/17) Subjective 12/21: was verbally abusive towards staff in pm, in the am, was on 2l nc, agitated 12/22: noted to have dvt and will contineu therapeutic doses, hgb holding 12/23: continue coumadin once dc, gunnar Hsu, no events otherwise Objective Objective Last 24 Hour Vital Signs Date Time Temp Pulse Resp B/P (MAP) Pulse Ox O2 Delivery O2 Flow Rate FiO2 12/23/18 12:00 98.6 96 18 136/86 (103) 98 12/23/18 09:39 166/106 12/23/18 08:43 98.2 98 18 166/106 (126) 98 12/23/18 08:28 90 18 96 Room Air 12/23/18 08:27 89 17 96 Room Air 12/23/18 08:00 Room Air 12/23/18 08:00 96.3 88 18 166/95 (118) 97 12/23/18 06:05 131/92 12/23/18 04:00 97.7 88 18 131/92 (105) 97 12/23/18 04:00 90 12/23/18 00:00 82 12/23/18 00:00 97.7 100 18 143/96 (112) 97 12/22/18 22:00 118/70 12/22/18 21:00 Room Air 12/22/18 20:00 97.4 75 18 118/70 (86) 95 12/22/18 20:00 89 12/22/18 16:00 79 12/22/18 15:47 98.1 80 19 130/85 (100) 93 12/22/18 14:17 150/87 12/22/18 12:00 97.9 90 19 150/87 (108) 94 12/22/18 12:00 90 12/22/18 09:24 157/99 12/22/18 09:00 Room Air 12/22/18 08:39 Room Air 21 12/22/18 08:39 Room Air 21 12/22/18 08:39 97 Room Air 12/22/18 08:00 90 12/22/18 08:00 97.6 91 19 157/99 (118) 95 12/22/18 06:00 125/61 12/22/18 04:00 98.3 86 19 125/61 (82) 98 12/22/18 04:00 68 12/22/18 00:00 76 12/22/18 00:00 97.4 91 19 131/66 (87) 96 12/21/18 22:00 129/71 12/21/18 21:00 Room Air 12/21/18 20:12 96 Room Air 21 12/21/18 20:00 90 12/21/18 20:00 97.7 87 19 129/71 (90) 92 12/21/18 16:10 97.8 91 19 130/84 (99) 91 Intake and Output 12/22/18 12/23/18 19:00 07:00 Intake Total 480 ml Output Total 550 ml Balance -70 ml Intake Oral 480 ml Output Urine Total 550 ml # Voids 2 Labs Test 12/20/18 16:00 12/21/18 05:59 12/22/18 06:26 12/22/18 15:50 Urine Color Pale yellow Urine Appearance Slightly cloudy Urine pH 9 (4.5-8.0) Urine Specific [place] 1.015 (1.005-1.035) Urine Protein 2+ (NEGATIVE) Urine Glucose (UA) Negative (NEGATIVE) Urine Ketones Negative (NEGATIVE) Urine Blood 2+ (NEGATIVE) Urine Nitrite Negative (NEGATIVE) Urine Bilirubin Negative (NEGATIVE) Urine Urobilinogen Normal MG/DL (0.0-1.0) Urine Leukocyte Esterase 3+ (NEGATIVE) Urine RBC 2-4 /HPF (0 - 0) Urine WBC 5-10 /HPF (0 - 0) Urine Squamous Epithelial Cells None /LPF (NONE/OCC) Urine Bacteria Moderate /HPF (NONE) White Blood Count 5.9 K/UL (4.8-10.8) 7.0 K/UL (4.8-10.8) Red Blood Count 3.86 M/UL (4.70-6.10) 3.78 M/UL (4.70-6.10) Hemoglobin 10.7 G/DL (14.2-18.0) 10.4 G/DL (14.2-18.0) Hematocrit 34.2 % (42.0-52.0) 33.6 % (42.0-52.0) Mean Corpuscular Volume 89 FL (80-99) 89 FL (80-99) Mean Corpuscular Hemoglobin 27.6 PG (27.0-31.0) 27.6 PG (27.0-31.0) Mean Corpuscular Hemoglobin Concent 31.2 G/DL (32.0-36.0) 31.0 G/DL (32.0-36.0) Red Cell Distribution Width 13.8 % (11.6-14.8) 14.1 % (11.6-14.8) Platelet Count 250 K/UL (150-450) 253 K/UL (150-450) Mean Platelet Volume 7.2 FL (6.5-10.1) 7.7 FL (6.5-10.1) Neutrophils (%) (Auto) 61.0 % (45.0-75.0) 65.8 % (45.0-75.0) Lymphocytes (%) (Auto) 27.5 % (20.0-45.0) 25.8 % (20.0-45.0) Monocytes (%) (Auto) 9.5 % (1.0-10.0) 6.5 % (1.0-10.0) Eosinophils (%) (Auto) 1.5 % (0.0-3.0) 1.5 % (0.0-3.0) Basophils (%) (Auto) 0.5 % (0.0-2.0) 0.3 % (0.0-2.0) Sodium Level 147 MMOL/L (136-145) 146 MMOL/L (136-145) Potassium Level 3.9 MMOL/L (3.5-5.1) 3.6 MMOL/L (3.5-5.1) Chloride Level 111 MMOL/L (98-107) 111 MMOL/L (98-107) Carbon Dioxide Level 28 MMOL/L (21-32) 28 MMOL/L (21-32) Anion Gap 8 mmol/L (5-15) 7 mmol/L (5-15) Blood Urea Nitrogen 9 mg/dL (7-18) 11 mg/dL (7-18) Creatinine 1.2 MG/DL (0.55-1.30) 1.2 MG/DL (0.55-1.30) Estimat Glomerular Filtration Rate > 60 mL/min (>60) > 60 mL/min (>60) Glucose Level 125 MG/DL (74-106) 104 MG/DL (74-106) Hemoglobin A1c 6.6 % (4.3-6.0) Uric Acid 6.1 MG/DL (2.6-7.2) 7.0 MG/DL (2.6-7.2) Calcium Level 9.2 MG/DL (8.5-10.1) 8.8 MG/DL (8.5-10.1) Phosphorus Level 4.3 MG/DL (2.5-4.9) 3.4 MG/DL (2.5-4.9) Magnesium Level 2.0 MG/DL (1.8-2.4) 2.1 MG/DL (1.8-2.4) Iron Level 58 ug/dL (50-175) Total Iron Binding Capacity 153 ug/dL (250-450) Percent Iron Saturation 38 % (15-50) Unsaturated Iron Binding 95 ug/dL (112-346) Ferritin 165 NG/ML (8-388) Total Bilirubin 0.3 MG/DL (0.2-1.0) 0.3 MG/DL (0.2-1.0) Gamma Glutamyl Transpeptidase 26 U/L (5-85) Aspartate Amino Transf (AST/SGOT) 12 U/L (15-37) 14 U/L (15-37) Alanine Aminotransferase (ALT/SGPT) 10 U/L (12-78) 8 U/L (12-78) Alkaline Phosphatase 76 U/L (46-116) 72 U/L (46-116) Total Creatine Kinase 78 U/L (26-308) Troponin I 0.018 ng/mL (0.000-0.056) 0.009 ng/mL (0.000-0.056) C-Reactive Protein, Quantitative 2.6 mg/dL (0.00-0.90) Pro-B-Type Natriuretic Peptide 619 pg/mL (0-125) Total Protein 6.9 G/DL (6.4-8.2) 6.5 G/DL (6.4-8.2) Albumin 2.7 G/DL (3.4-5.0) 2.6 G/DL (3.4-5.0) Globulin 4.2 g/dL 3.9 g/dL Albumin/Globulin Ratio 0.6 (1.0-2.7) 0.7 (1.0-2.7) Triglycerides Level 121 MG/DL (30-150) Cholesterol Level 153 MG/DL (< 200) LDL Cholesterol 86 mg/dL (<100) HDL Cholesterol 37 MG/DL (40-60) Cholesterol/HDL Ratio 4.1 (3.3-4.4) Carcinoembryonic Antigen 4.2 ng/mL (0.0-4.7) Vitamin B12 Level 504 PG/ML (193-986) Folate 21.0 NG/ML (8.6-58.9) Thyroid Stimulating Hormone (TSH) 0.809 uiU/mL (0.358-3.740) Prothrombin Time 10.9 SEC (9.30-11.50) Prothromb Time International Ratio 1.0 (0.9-1.1) Test 12/23/18 06:22 Prothrombin Time 10.7 SEC (9.30-11.50) Prothromb Time International Ratio 1.0 (0.9-1.1) Height (Feet): 6 Height (Inches): 0.00 Weight (Pounds): 164 Objective PE: Vitals: reviewed General Appearance: NAD HEENT: normocephalic, atraumatic Neck: non-tender, normal alignment Respiratory/Chest: nromal breath sounds bilaterally Cardiovascular/Chest: normal peripheral pulses, normal rate Abdomen: normal bowel sounds, soft, nontender Extremities: normal range of motio Neuro: Follows two-step commands. Collin Mackey MD Dec 23, 2018 15:18
[2018-12-23] MEDS ORDERED: Montelukast 10mg tablet ORAL SCH (16:30)
[2018-12-23] MEDS ORDERED: Warfarin Sodium 5mg ORAL SCH (17:00)
--- NOTE | 2018-12-23 17:23 | Surgery Progress Note ---
Surgery Progress Note Subjective Symptoms: improved Additional Comments no acute events labs improved d/c planning for today Objective Last 24 Hour Vital Signs Date Time Temp Pulse Resp B/P (MAP) Pulse Ox O2 Delivery O2 Flow Rate FiO2 12/23/18 12:00 98.6 96 18 136/86 (103) 98 12/23/18 09:39 166/106 12/23/18 08:43 98.2 98 18 166/106 (126) 98 12/23/18 08:28 90 18 96 Room Air 21 12/23/18 08:27 89 17 96 Room Air 21 12/23/18 08:00 Room Air 12/23/18 08:00 96.3 88 18 166/95 (118) 97 12/23/18 06:05 131/92 12/23/18 04:00 97.7 88 18 131/92 (105) 97 12/23/18 04:00 90 12/23/18 00:00 82 12/23/18 00:00 97.7 100 18 143/96 (112) 97 12/22/18 22:00 118/70 12/22/18 21:00 Room Air 12/22/18 20:00 97.4 75 18 118/70 (86) 95 12/22/18 20:00 89 I&O Intake and Output 12/22/18 12/23/18 19:00 07:00 Intake Total 480 ml Output Total 550 ml Balance -70 ml Intake Oral 480 ml Output Urine Total 550 ml # Voids 2 Dressing: saturated Wound: other Cardiovascular: RSR Respiratory: clear Abdomen: soft, present bowel sounds, non-distended Extremities: other Laboratory Tests Test 12/23/18 06:22 Prothrombin Time 10.7 SEC (9.30-11.50) Prothromb Time International Ratio 1.0 (0.9-1.1) Plan Problems: (1) Respiratory distress (2) Decubitus skin ulcer Assessment & Plan: Pt presented on admission with multiple pressure injuries. Partial thickness pressure injury noted to L gluteal cleft. Base of wound moist -viable. Edges flat and adherent to base of wound. Periwound has a Darker skin tone without induration.(L)1cm x (W)0.9cm. Cluster of Full thickness pressure injuries R buttocks.Wounds are 90% viable with 10% slough Periwound has darker skin tone without induration but tender when minimally palpated (L)5.5cm x (W)4.6cm. Small amt non-odorous serous exudate. Non-blanchable erythema both heels. Both heels are boggy but non-tender when palpated. Tx.Plan: Cleanse wounds R buttocks with Saline. Apply Triad Paste . Cover with Optifoam drsg every 3 days and prn. Apply Triad Paste to L buttocks. Cover with Optifoam drsg. Change every 3 days and prn. Apply Cavilon Skin Barrier to both heels. Cover each heel with Optifoam drsg. Change every 7 days and prn. APM/ANYA Mattress Overlay. Reposition at least every 2 hours or as tolerated. Off-load heels with pillow Patient able to move but unfortunately not fully compliant with care plan. Will try to reorient patient frequently to ensure he is moving and not laying on bony prominences. Furthermore will try to improve nutritional status to help with wound healing. cont above care plan upon discharge time of note does not reflect when patient was seen and examined (3) Hypotension (4) Failure to thrive (5) Hypoalbuminemia due to protein-calorie malnutrition Assessment & Plan: DAILY ESTIMATED NEEDS: Needs based on Wound, pulmonary 95.7kg adj 25-30 kcals/kg 4146-6026 total kcals 1.25-1.5 g protein/kg 120-144 g total protein 25-30 mL/kg [id number] total fluid mLs NUTRITION DIAGNOSIS: Increase pro needs r/t wound healing as evidenced by BL buttocks partial thickness wounds. CURRENT DIET: CCHO MED / JUAN JOSÉ PO DIET RECOMMENDATIONS: JUAN JOSÉ / CCHO MED diet (texture per [employer]) + DOUBLE PROTEIN ADDITIONAL RECOMMENDATIONS: 1) PER SNF--> > HT: 6'4" and WT: 236 lbs 2) A1C for eval 3) WOUND CARE: Add ALESSIA BID + VIT C 250mg daily 4) Possible FTT, rec close monitoring of PO intake/ Kcal count 5) Add GLUCERNA 1 tetra jules daily Zachariah Can Dec 23, 2018 17:23
[2018-12-23] MEDS ORDERED: Tamsulosin 0.4mg cap ORAL SCH (21:00)
--- NOTE | 2018-12-23 21:00 | Progress Note ---
DATE: 12/23/2018 SUBJECTIVE: The patient is calmer, more redirectable. Still has episodes of anxiety and agitation. Poor cognition. The patient is going to be discharged . The patient is not having any suicidal or homicidal ideation. MENTAL STATUS EXAMINATION: The patient is alert and oriented times self and place. Mood is agitated. Affect is flat. Thought process, there is a paucity of thought content. Thought content, no suicidal or homicidal ideations. ASSESSMENT: The patient is more stable. PLAN: We will continue current medications. Provide the patient with reality orientation. Daniel Delacruz M.D. DR: QUANG JOB#: [id number] CC:
--- NOTE | 2018-12-25 10:31 | Discharge Summary ---
Discharge Summary Discharge Summary _ DATE OF ADMISSION: 12/19/2018 DATE OF DISCHARGE: 12/23/2018 DISCHARGED BY: Dr. Cher Hsu CONSULTANTS: Dr. Daniel Cueva [facility] HOSPITAL COURSE: Patient is a 68-year-old male, with history of hypertension, GERD, coronary artery disease, hyperlipidemia, diabetes, dementia, COPD, current smoker, presented from nursing facility for evaluation of shortness of breath, hypotension and decreased arousal. According to shelter record, patient was found in a very deep sleep, hypotensive with blood pressure of 84 over 40s. He was difficult to awaken. [facility] also noted there was question of failure to thrive. Patient denied chest pain, recent illness, shortness of breath, cough, leg swelling, abdominal pain, vomiting, diarrhea, rash, dysuria, flank pain or any change in health. Patient is poor historian and had poor insight into his medical condition. On evaluation at ED, blood pressure was 90/50, heart rate 82, RR 18, 98% O2, he was afebrile. Blood work did not show any leukocytosis. Hemoglobin 10.6, hematocrit 35. Electrolytes were normal. Kidney function normal. Troponin negative. proBNP 322. LFTs normal. EKG showed first-degree AV block with no acute ischemic changes. Chest x-ray did not show any infiltrates. He was then admitted for evaluation of hypotension and altered mental status. He was given IV hydration. Potassium was repleted. Patient had failure to thrive with decreased BMI and low protein. He was placed on calorie counts. He was placed on fall precautions. Patient was confused and disoriented. He had disorganized speech and behavior. Psychiatric evaluation was done. Patient was unable to understand, process, communicate no appreciated information given to him in regards to his current medical condition. He was diagnosed to have acute encephalopathy and psychiatric disorder. He was started on low-dose antipsychotic, Zyprexa. He was given Ativan as needed. He was noted to come in with multiple wounds requiring care and management. Surgery was called to evaluate and assist with care. He was noted to have partial thickness pressure injury on the left gluteal cleft. There were clusters of full-thickness pressure injury on the right buttocks. Both heels were erythematous but non-blanchable. Heels were boggy but not tender when palpated. He was given local wound care. He was placed on APM/ANYA mattress overlay with frequent repositioning and offloading. Nutrition was optimized to aid with wound healing. Venous duplex revealed an acute thrombosis in the right superficial femoral to popliteal vein. He was given Lovenox, he was eventually given warfarin on bridge with Lovenox. He was placed on GI protectant. Blood pressure was labile. Patient initially was hypotensive and had episodes of hypertension. He was given hydralazine and losartan. 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 He was eventually discharged back to [facility]. FINAL DIAGNOSES: Acute DVT of the right lower extremity Anemia of chronic disease due to underlying chronic medical issues Failure to thrive Hypotension Hypertension Hypoalbuminemia due to protein calorie malnutrition Type 2 diabetes Proteins UTI Hypokalemia Acute metabolic encephalopathy Dementia COPD GERD Coronary artery disease DISPOSITION: Patient was discharged to a SNF. DISCHARGE MEDICATIONS: Refer to Discharge Medication List. Continue Lovenox as ordered I have been assigned to complete a discharge summary on this account, I was not involved with the patient's management.--IRMA Lewis Jacqueline Robles NP Dec 25, 2018 10:31
--- NOTE | 2018-12-25 14:57 | Cardiology Report ---
APPROVED REPORT EKG Measurement Heart [id number] Normal sinus rhythm Left axis deviation Nonspecific ST abnormality Abnormal ECG
== END 2018-12-23 12:50 | DRG 299 ==
LOC: EDUNIT# 13:31 → EDBD 13:31 → EMR 14:59 → 2E 16:07 → EDBEDREQ 16:31 → 2E 16:52 → 4E 12-23 08:13
DX: I82.431 Acute embolism and thrombosis of right popliteal vein (principal); G93.41 Metabolic encephalopathy; E46 Unspecified protein-calorie malnutrition; N39.0 Urinary tract infection, site not specified; L89.319 Pressure ulcer of right buttock, unspecified stage; L89.329 Pressure ulcer of left buttock, unspecified stage; I82.411 Acute embolism and thrombosis of right femoral vein; E87.6 Hypokalemia; I95.9 Hypotension, unspecified; I44.0 Atrioventricular block, first degree; D63.8 Anemia in other chronic diseases classified elsewhere; R62.7 Adult failure to thrive; F17.200 Nicotine dependence, unspecified, uncomplicated; K21.9 Gastro-esophageal reflux disease without esophagitis; I25.10 Atherosclerotic heart disease of native coronary artery without angina pectoris; I10 Essential (primary) hypertension; E11.9 Type 2 diabetes mellitus without complications; B96.4 Proteus (mirabilis) (morganii) as the cause of diseases classified elsewhere; F03.90 Unspecified dementia, unspecified severity, without behavioral disturbance, psychotic disturbance, mood disturbance, and anxiety; J44.9 Chronic obstructive pulmonary disease, unspecified; Z88.8 Allergy status to other drugs, medicaments and biological substances; Z88.6 Allergy status to analgesic agent; I44.7 Left bundle-branch block, unspecified; F10.20 Alcohol dependence, uncomplicated
CPT/HCPCS: 36415; 36600; 70450; 71045; 80053; 80061; 81001; 82378; 82533; 82550; 82553; 82607; 82728; 82746; 82803; 82962; 82977; 83036; 83540; 83550; 83735; 83880; 84100; 84443; 84484; 84550; 85025; 85610; 86140; 87086; 87181; 93005; 93306; 93970; 94640; 99285; J1815; J8499